=== PATIENT | male | born 1965 | race Caucasian/White ===

== ENCOUNTER 2021-01-06 21:08 | Inpatient (IN) | payer BC ==
[2021-01-06] MEDS ORDERED: ONDANSETRON 4 MG/2 ML VIAL IVP STA (22:20)
[2021-01-06] MEDS ORDERED: HYDROmorphone 0.5 MG/0.5 ML SYRINGE IVP STA (22:20)
[2021-01-06] MEDS ORDERED: SODIUM CHLORIDE 0.9% 2,000 ML IV STA (22:20)
[2021-01-06 22:47] LABS: Basophils # (A) 0.1 k/uL (0-0.2); Basophils % (A) 0 %; Eosinophils # (A) 0.1 k/uL (0-0.7); Eosinophils % (A) 0 %; HCT 46.6 % (39.0-53.0); HGB 15.5 gm/dL (13.0-17.5); Lymphocytes % (A) 5 %; MCHC 33.3 g/dL (31.0-37.0); MCV 90.2 fL (80.0-100.0); Mean Platelet Volume 8.7; Monocytes # (A) 1.4 k/uL (0-1.0); Monocytes % (A) 7 %; Neutrophils # (A) 17.7 k/uL (1.3-7.7); Neutrophils % (A) 86 %; Platelet Count 276 k/uL (150-450); RBC 5.16 m/uL (4.30-5.90); RDW 12.6 % (11.5-15.5); WBC 20.6 k/uL (3.8-10.6)
[2021-01-06 22:59] LABS: Albumin 3.3 g/dL (3.5-5.0); Calcium 8.2 mg/dL (8.4-10.2); Total Bilirubin 0.9 mg/dL (0.2-1.3); Total Protein 6.5 g/dL (6.3-8.2)
[2021-01-06 23:21] LABS: Potassium 3.4 mmol/L (3.5-5.1)
[2021-01-06] MEDS ORDERED: PIPERACILLIN-TAZOBACTAM 3.375 GM in SODIUM CHLORIDE 0.9% 100 ML IVPB STA (23:23)
[2021-01-06] MEDS ORDERED: NALOXONE 0.4 MG/ML 1 ML VIAL IV PRN (23:26)
[2021-01-06] MEDS ORDERED: ONDANSETRON 4 MG/2 ML VIAL IVP PRN (23:26)
[2021-01-06] MEDS ORDERED: HYDROmorphone 0.5 MG/0.5 ML SYRINGE IVP PRN (23:26)
--- NOTE | 2021-01-06 23:26 | ED ---
Abdominal Pain HPI - General Chief Complaint: Abdominal Pain Stated Complaint: Abd pain Time Seen by Provider: 01/06/21 22:03 Source: patient, family, RN notes reviewed Mode of arrival: ambulatory Limitations: no limitations - History of Present Illness Initial Comments: This a 55-year-old male presents emergency Department chief complaint increase abdominal pain, fever. Patient had computed tomography scan today which showed evidence of inflammatory processes of his lap band. Patient had imaging done in [place] changes were sent to Dr. Acosta scheduled see tomorrow for possible surgery, evaluation. Patient states pain worsened presented here. Patient states felt sick to his stomach, having diarrhea and constipation on and off. Patient has no dysuria no hematuria patient's having increasing left-sided abdominal pain. - Related Data Allergies Allergy/AdvReac Type Severity Reaction Status Date / Time No Known Allergies Allergy Verified 01/06/21 21:57 Review of Systems ROS Statement: Those systems with pertinent positive or pertinent negative responses have been documented in the HPI. ROS Other: All systems not noted in ROS Statement are negative. Past Medical History Past Medical History: Atrial Fibrillation, Chest Pain / Angina, Diabetes Mellitus, Hypertension, Myocardial Infarction ([place]) Additional Past Medical History / Comment(s): Loop recorder History of Any Multi-Drug Resistant Organisms: None Reported Past Surgical History: Ablation, Coronary Bypass/CABG, Heart Catheterization, Heart Catheterization With Stent Additional Past Surgical History / Comment(s): Lap band Past Psychological History: No Psychological Hx Reported Smoking Status: Never smoker Past Alcohol Use History: None Reported Past Drug Use History: None Reported General Exam Limitations: no limitations General appearance: alert, in no apparent distress Head exam: Present: atraumatic, normocephalic, normal inspection Eye exam: Present: normal appearance, PERRL, EOMI. Absent: scleral icterus, conjunctival injection, periorbital swelling ENT exam: Present: normal exam, normal oropharynx, mucous membranes moist Neck exam: Present: normal inspection. Absent: tenderness, meningismus, lymphadenopathy Respiratory exam: Present: normal lung sounds bilaterally. Absent: respiratory distress, wheezes, rales, rhonchi, stridor Cardiovascular Exam: Present: regular rate, normal rhythm, normal heart sounds. Absent: systolic murmur, diastolic murmur, rubs, gallop, clicks GI/Abdominal exam: Present: soft, tenderness, normal bowel sounds. Absent: dist ended, guarding, rebound, rigid Back exam: Absent: CVA tenderness (R), CVA tenderness (L) Neurological exam: Present: alert Skin exam: Present: warm, dry, intact, normal color. Absent: rash Course Vital Signs 01/06/21 21:51 Temperature 100.5 F H Pulse Rate 68 Respiratory 18 Rate Blood Pressure 109/64 O2 Sat by Pulse 94 L Oximetry Medical Decision Making - Medical Decision Making Case discussed with Dr. Acosta. Patient was placed on IV antibiotics, nothing by mouth will be evaluated for possible surgery. - Lab Data Result diagrams: 01/06/21 22:25 01/06/21 22:25 Lab Results 01/06/21 01/06/21 01/06/21 Range/Units 22:25 22:25 22:25 WBC 20.6 H (3.8-10.6) k/uL RBC 5.16 (4.30-5.90) m/uL Hgb 15.5 (13.0-17.5) gm/dL Hct 46.6 (39.0-53.0) % MCV 90.2 (80.0-100.0) fL MCH 30.0 (25.0-35.0) pg MCHC 33.3 (31.0-37.0) g/dL RDW 12.6 (11.5-15.5) % Plt Count 276 (150-450) k/uL MPV 8.7 Neutrophils % 86 % Lymphocytes % 5 % Monocytes % 7 % Eosinophils % 0 % Basophils % 0 % Neutrophils # 17.7 H (1.3-7.7) k/uL Lymphocytes # 1.0 (1.0-4.8) k/uL Monocytes # 1.4 H (0-1.0) k/uL Eosinophils # 0.1 (0-0.7) k/uL Basophils # 0.1 (0-0.2) k/uL Sodium 133 L (137-145) mmol/L Potassium 3.4 L (3.5-5.1) mmol/L Chloride 96 L (98-107) mmol/L Carbon Dioxide 23 (22-30) mmol/L Anion Gap 14 mmol/L BUN 32 H (9-20) mg/dL Creatinine 1.21 (0.66-1.25) mg/dL Est GFR (CKD-EPI)AfAm 77 (>60 ml/min/1.73 sqM) Est GFR (CKD-EPI)NonAf 66 (>60 ml/min/1.73 sqM) Glucose 134 H (74-99) mg/dL Plasma Lactic Acid Jewel 1.1 (0.7-2.0) mmol/L Calcium 8.2 L (8.4-10.2) mg/dL Total Bilirubin 0.9 (0.2-1.3) mg/dL AST 40 (17-59) U/L ALT 21 (4-49) U/L Alkaline Phosphatase 80 (38-126) U/L Total Protein 6.5 (6.3-8.2) g/dL Albumin 3.3 L (3.5-5.0) g/dL Amylase 34 (30-110) U/L Lipase 74 (23-300) U/L Disposition Clinical Impression: Abdominal pain, Febrile, Leukocytosis, Abdominal infection, History of laparoscopic adjustable gastric banding Disposition: ADMITTED IP TO THIS [facility] Condition: Fair Referrals: Nonstaff,Physician [Primary Care Provider] - 1-2 days
[2021-01-07] MEDS: SODIUM CHLORIDE 0.9% 1,000 ML IV SCH ×4 (02:21→21:11)
[2021-01-07] MEDS: ACETAMINOPHEN TAB 325 MG TAB PO PRN (07:06)
[2021-01-07 08:18] LABS: Glucose,Whole Blood 134 mg/dL (75-99)
[2021-01-07] MEDS: POTASSIUM CHLORIDE 10 MEQ in WATER FOR INJECTION 1 100ML.BAG IVPB SCH ×2 (08:37→09:55)
[2021-01-07 09:59] LABS: Basophils # (A) 0.1 k/uL (0-0.2); Basophils % (A) 0 %; Eosinophils # (A) 0.2 k/uL (0-0.7); Eosinophils % (A) 1 %; HCT 43.8 % (39.0-53.0); HGB 14.3 gm/dL (13.0-17.5); Lymphocytes # (A) 0.9 k/uL (1.0-4.8); Lymphocytes % (A) 5 %; MCHC 32.7 g/dL (31.0-37.0); MCV 91.8 fL (80.0-100.0); Mean Platelet Volume 8.9; Monocytes # (A) 1.4 k/uL (0-1.0); Monocytes % (A) 7 %; Neutrophils # (A) 16.3 k/uL (1.3-7.7); Neutrophils % (A) 86 %; Platelet Count 287 k/uL (150-450); RBC 4.77 m/uL (4.30-5.90); RDW 12.8 % (11.5-15.5); WBC 19.1 k/uL (3.8-10.6)
[2021-01-07 10:05] LABS: African American GFR (CKD) 82 (>60 ml/min/1.73 sqM); Anion Gap 11 mmol/L; Blood Urea Nitrogen 29 mg/dL (9-20); Calcium 7.8 mg/dL (8.4-10.2); Carbon Dioxide 27 mmol/L (22-30); Chloride 99 mmol/L (98-107); Glucose 126 mg/dL (74-99); Non-African American GFR(CKD) 71 (>60 ml/min/1.73 sqM); Potassium 3.6 mmol/L (3.5-5.1); Sodium 137 mmol/L (137-145)
--- NOTE | 2021-01-07 10:12 | P.GSHP ---
History of Present Illness H&P Date: 01/07/21 CHIEF COMPLAINT: Abdominal pain HISTORY OF PRESENT ILLNESS: This is a 55-year-old male with a known history of lap band that was placed about 15 years ago. He reports that he started having pain over the weekend on the left side of his abdomen. He's also been feverish. He had similar pain in October that did improve after antibiotics. He went to see his PCP this Tuesday and CAT scan was ordered which had shown inflammation changes at the LAP-BAND system. Patient denies any nausea or vomiting. He did have fever as high as 101.6. WBC is 20.6. He is on Eliquis for his atrial fibrillation. Last dose of was was at 7:00 last night. PAST MEDICAL HISTORY: Atrial fibrillation, diabetes mellitus, hypertension, myocardial infarction PAST SURGICAL HISTORY: CABG, heart catheterization with stent, LAP-BAND system MEDICATIONS: See list. ALLERGIES: See list. SOCIAL HISTORY: No illicit drug use. REVIEW OF SYSTEMS: CONSTITUTIONAL: Denies fever or chills. HEENT: Denies blurred vision, vision changes, or eye pain. Denies hemoptysis CARDIOVASCULAR: Denies chest pain or pressure. RESPIRATORY: No shortness of breath. GASTROINTESTINAL: See HPI for pertinent findings HEMATOLOGIC: Denies bleeding disorders. GENITOURINARY: Denies any blood in urine or increased urinary frequency. SKIN: Denies pruitis. Denies rash. PHYSICAL EXAM: VITAL SIGNS: Reviewed GENERAL: Well-developed in no acute distress. HEENT: No sclera icterus. Extraocular movements grossly intact. Moist buccal mucosa. Head is atraumatic, normocephalic. No nasal drainage. ABDOMEN: Soft. Nondistended. Tenderness with palpation of left sided abdomen NEUROLOGIC: Alert and oriented. Cranial nerves II through XII grossly intact. LABORATORY DATA: WBC 20.6 down to 19.1 hemoglobin 14.3 platelets 287 Sodium 133 up to 137 potassium 3.4 up to 3.6 BUN 29 creatinine 1.15 glucose 126 LFTs normal lipase normal COVID-19 not detected IMAGING: ASSESSMENT: 1. Inflammatory changes and infection of LAP-BAND system PLAN: -Patient scheduled for laparoscopic removal of LAP-BAND system today with Dr. talley -Continue IV antibiotics -Continue IV fluids -Continue pain medication as needed -Add insulin sliding scale coverage -Keep Eliquis on hold -Consult medicine service for medical management Physician Business Segment Manager note has been reviewed by physician. Signing provider agrees with the documented findings, assessment, and plan of care. Past Medical History Past Medical History: Atrial Fibrillation, Chest Pain / Angina, Diabetes Mellitus, Hypertension, Myocardial Infarction ([place]) Additional Past Medical History / Comment(s): Loop recorder History of Any Multi-Drug Resistant Organisms: None Reported Past Surgical History: Ablation, Coronary Bypass/CABG, Heart Catheterization, Heart Catheterization With Stent Additional Past Surgical History / Comment(s): Lap band Past Psychological History: No Psychological Hx Reported Smoking Status: Never smoker Past Alcohol Use History: None Reported Past Drug Use History: None Reported Medications and Allergies Home Medications Medication Instructions Recorded Confirmed Type Apixaban [Eliquis] 5 mg PO BID 01/06/21 01/07/21 History Aspirin EC [Ecotrin Low Dose] 81 mg PO DAILY 01/06/21 01/07/21 History Chlorthalidone [Hygroton] 25 mg PO DAILY 01/06/21 01/06/21 History Diltiazem HCl [Diltiazem HCl 24Hr 240 mg PO DAILY 01/06/21 01/07/21 History ER] Ezetimibe [Zetia] 10 mg PO DAILY 01/06/21 01/07/21 History Insulin Glargine,Hum.rec.anlog 30 - 40 unit SQ QAM 01/06/21 01/07/21 History [Lantus Solostar Pen] Insulin Glargine,Hum.rec.anlog 80 unit SQ HS 01/06/21 01/07/21 History [Lantus Solostar Pen] Krill Oil 750mg 1 tab PO BID 01/06/21 01/07/21 History Magnesium Chloride [Mag64] 64 mg PO DAILY 01/06/21 01/07/21 History Metoprolol Tartrate [Lopressor] 50 mg PO BID 01/06/21 01/07/21 History Multivitamins, Thera [Multivitamin 1 tab PO DAILY 01/06/21 01/07/21 History (formulary)] Potassium Chloride [K-Tab ER] 20 meq PO DAILY 01/06/21 01/07/21 History Sotalol HCl [Sotalol] 240 mg PO BID-W/MEALS 01/06/21 01/07/21 History hydrALAZINE HCL 50 mg PO BID 01/06/21 01/07/21 History lisinopriL 20 mg PO BID 01/06/21 01/07/21 History Atorvastatin [Lipitor] 20 mg PO DAILY 01/07/21 01/07/21 History Cholecalciferol [Vitamin D3 (25 25 mcg PO DAILY 01/07/21 01/07/21 History Mcg = 1000 Iu)] buPROPion XL [Wellbutrin XL] 150 mg PO DAILY 01/07/21 01/07/21 History metFORMIN HCL 500 mg PO BID-W/MEALS 01/07/21 01/07/21 History Allergies Allergy/AdvReac Type Severity Reaction Status Date / Time No Known Allergies Allergy Verified 01/06/21 23:59 Surgical - Exam Vital Signs Temp Pulse Resp BP Pulse Ox 100.5 F H 68 18 109/64 94 L 01/06/21 21:51 01/06/21 21:51 01/06/21 21:51 01/06/21 21:51 01/06/21 21:51 Results - Labs 01/07/21 09:04 01/07/21 09:04 Abnormal Lab Results - Last 24 Hours (Table) 01/06/21 01/06/21 01/07/21 Range/Units 22:25 22:25 08:15 WBC 20.6 H (3.8-10.6) k/uL Neutrophils # 17.7 H (1.3-7.7) k/uL Lymphocytes # (1.0-4.8) k/uL Monocytes # 1.4 H (0-1.0) k/uL Sodium 133 L (137-145) mmol/L Potassium 3.4 L (3.5-5.1) mmol/L Chloride 96 L (98-107) mmol/L BUN 32 H (9-20) mg/dL Glucose 134 H (74-99) mg/dL POC Glucose (mg/dL) 134 H (75-99) mg/dL Calcium 8.2 L (8.4-10.2) mg/dL Albumin 3.3 L (3.5-5.0) g/dL 01/07/21 01/07/21 Range/Units 09:04 09:04 WBC 19.1 H (3.8-10.6) k/uL Neutrophils # 16.3 H (1.3-7.7) k/uL Lymphocytes # 0.9 L (1.0-4.8) k/uL Monocytes # 1.4 H (0-1.0) k/uL Sodium (137-145) mmol/L Potassium (3.5-5.1) mmol/L Chloride (98-107) mmol/L BUN 29 H (9-20) mg/dL Glucose 126 H (74-99) mg/dL POC Glucose (mg/dL) (75-99) mg/dL Calcium 7.8 L (8.4-10.2) mg/dL Albumin (3.5-5.0) g/dL Diabetes panel 01/06/21 01/07/21 Range/Units 22:25 09:04 Sodium 133 L 137 (137-145) mmol/L Potassium 3.4 L 3.6 (3.5-5.1) mmol/L Chloride 96 L 99 (98-107) mmol/L Carbon Dioxide 23 27 (22-30) mmol/L BUN 32 H 29 H (9-20) mg/dL Creatinine 1.21 1.15 (0.66-1.25) mg/dL Glucose 134 H 126 H (74-99) mg/dL Calcium 8.2 L 7.8 L (8.4-10.2) mg/dL AST 40 (17-59) U/L ALT 21 (4-49) U/L Alkaline Phosphatase 80 (38-126) U/L Total Protein 6.5 (6.3-8.2) g/dL Albumin 3.3 L (3.5-5.0) g/dL Calcium panel 01/06/21 01/07/21 Range/Units 22:25 09:04 Calcium 8.2 L 7.8 L (8.4-10.2) mg/dL Albumin 3.3 L (3.5-5.0) g/dL Pituitary panel 01/06/21 01/07/21 Range/Units 22:25 09:04 Sodium 133 L 137 (137-145) mmol/L Potassium 3.4 L 3.6 (3.5-5.1) mmol/L Chloride 96 L 99 (98-107) mmol/L Carbon Dioxide 23 27 (22-30) mmol/L BUN 32 H 29 H (9-20) mg/dL Creatinine 1.21 1.15 (0.66-1.25) mg/dL Glucose 134 H 126 H (74-99) mg/dL Calcium 8.2 L 7.8 L (8.4-10.2) mg/dL Adrenal panel 01/06/21 01/07/21 Range/Units 22:25 09:04 Sodium 133 L 137 (137-145) mmol/L Potassium 3.4 L 3.6 (3.5-5.1) mmol/L Chloride 96 L 99 (98-107) mmol/L Carbon Dioxide 23 27 (22-30) mmol/L BUN 32 H 29 H (9-20) mg/dL Creatinine 1.21 1.15 (0.66-1.25) mg/dL Glucose 134 H 126 H (74-99) mg/dL Calcium 8.2 L 7.8 L (8.4-10.2) mg/dL Total Bilirubin 0.9 (0.2-1.3) mg/dL AST 40 (17-59) U/L ALT 21 (4-49) U/L Alkaline Phosphatase 80 (38-126) U/L Total Protein 6.5 (6.3-8.2) g/dL Albumin 3.3 L (3.5-5.0) g/dL
[2021-01-07 10:15] LABS: Appearance,Urine Cloudy (Clear); Bilirubin,Urine Negative (Negative); Blood,Urine Negative (Negative); Color,Urine Yellow; Glucose,Urine (UA) Negative (Negative); Ketones,Urine Trace (Negative); Leukocyte Esterase,Urine Negative (Negative); Mucus,Urine Rare /hpf; Nitrite,Urine Negative (Negative); PH, Urine 5.5 (5.0-8.0); Protein,Urine 1+ (Negative); RBC,Urine 3 /hpf (0-5); Specific Gravity,Urine 1.036 (1.001-1.035); Squamous Epithelial Cell,Urine 1 /hpf (0-4); Urobilinogen,Urine <2.0 mg/dL (<2.0); WBC,Urine 4 /hpf (0-5)
[2021-01-07] MEDS ORDERED: IV FLUID CONTINUATION 1,000 ML IV ONE (10:46)
[2021-01-07 10:53] LABS: Glucose,Whole Blood 110 mg/dL (75-99)
[2021-01-07] MEDS ORDERED: DEXAMETHASONE SOD PHOSPHATE 4 MG/ML 1 ML VIAL IVP ONE (11:08)
[2021-01-07] MEDS ORDERED: ONDANSETRON 4 MG/2 ML VIAL IVP ONE (11:08)
[2021-01-07] MEDS ORDERED: fentaNYL (PF) 50 MCG/ML 2 ML AMP ONE (11:30)
[2021-01-07] MEDS ORDERED: PROPOFOL 10 MG/ML 20 ML VIAL IV ONE (11:30)
[2021-01-07] MEDS ORDERED: MIDAZOLAM 2 MG/2 ML VIAL ONE (11:30)
[2021-01-07] MEDS ORDERED: LIDOCAINE 1% INJ 10MG/ML (20 ML MDV) ONE (11:30)
[2021-01-07] MEDS ORDERED: SUCCINYLCHOLINE CHLORIDE VIAL 200 MG/10 ML VIAL IV ONE (11:30)
[2021-01-07] MEDS ORDERED: BUPIVACAINE (PF) 0.25% 30 ML VIAL SQ ONE (11:59)
--- NOTE | 2021-01-07 12:04 | P.OP ---
Date of Procedure: 01/07/21 Preoperative Diagnosis: LAP-BAND port infection Postoperative Diagnosis: LAP-BAND port infection Implants: Removal of LAP-BAND port Anesthesia: LARRY Surgeon: Mike Acosta Pathology: other (Culture) Condition: stable Disposition: PACU Description of Procedure: The patient's placed on the operative table in the supine position. He received general endotracheal anesthesia. His abdomen was prepped and draped usual fashion. The skin was incised over the LAP-BAND port. Using blunt and sharp dissection with cautery the LAP-BAND port was dissected free. The PEG tube was then cut. The LAP-BAND port pocket was cultured. There was very minimal inflammatory changes seen. There is no evidence of any pus. The wound was then packed with wet-to-dry Kerlix. Patient top she will well and was sent to recovery room stable condition.
[2021-01-07 13:29] LABS: Glucose,Whole Blood 138 mg/dL (75-99)
[2021-01-07] MEDS: INSULIN ASPART (NovoLOG) 100 UNIT/ML VIAL SQ SCH ×3 (13:36→21:11)
[2021-01-07] MEDS: PIPERACILLIN-TAZOBACTAM 3.375 GM in SODIUM CHLORIDE 0.9% 100 ML IVPB SCH ×2 (13:37→19:21)
[2021-01-07 17:11] LABS: Glucose,Whole Blood 186 mg/dL (75-99)
[2021-01-07] MEDS: SOTALOL 120 MG TAB PO SCH (18:09)
[2021-01-07 21:04] LABS: Glucose,Whole Blood 287 mg/dL (75-99)
[2021-01-07] MEDS: METOPROLOL TARTRATE 50 MG TAB PO SCH (21:10)
[2021-01-07] MEDS: hydrALAZINE HCL 50 MG TAB PO SCH (21:10)
[2021-01-07] MEDS: INSULIN DETEMIR (LEVEMIR) 100 UNIT/ML SYR SQ SCH (21:10)
[2021-01-08] MEDS: PIPERACILLIN-TAZOBACTAM 3.375 GM in SODIUM CHLORIDE 0.9% 100 ML IVPB SCH ×3 (02:10→17:37)
[2021-01-08] MEDS: SODIUM CHLORIDE 0.9% 1,000 ML IV SCH (06:21)
[2021-01-08 07:34] LABS: Glucose,Whole Blood 200 mg/dL (75-99)
[2021-01-08] MEDS: METOPROLOL TARTRATE 50 MG TAB PO SCH ×2 (08:02→20:47)
[2021-01-08] MEDS: SOTALOL 120 MG TAB PO SCH ×2 (08:02→17:38)
[2021-01-08] MEDS: MULTIVITAMINS, THERA 1 EACH TAB PO SCH (08:02)
[2021-01-08] MEDS: buPROPion XL 150 MG TAB.ER.24H PO SCH (08:02)
[2021-01-08] MEDS: CHOLECALCIFEROL 25 MCG (1000 IU) TABLET PO SCH (08:02)
[2021-01-08] MEDS: ASPIRIN 81 MG PO SCH (08:02)
[2021-01-08] MEDS: EZETIMIBE 10 MG TAB PO SCH (08:02)
[2021-01-08] MEDS: hydrALAZINE HCL 50 MG TAB PO SCH ×2 (08:03→20:48)
[2021-01-08] MEDS: INSULIN ASPART (NovoLOG) 100 UNIT/ML VIAL SQ SCH ×4 (08:03→20:48)
[2021-01-08] MEDS: lisinopriL 20 MG TAB PO SCH (08:03)
[2021-01-08] MEDS: MAGNESIUM OXIDE 400 MG TAB PO SCH (08:03)
[2021-01-08] MEDS: ATORVASTATIN 20 MG TAB PO SCH (08:03)
[2021-01-08] MEDS ORDERED: DILTIAZEM CD 240 MG CAP.ER.24H PO SCH (09:00)
--- NOTE | 2021-01-08 10:04 | P.CONS ---
History of Present Illness - Reason for Consult Consult date: 01/07/21 Sepsis - History of Present Illness Patient presents with 55-year-old male came in with complaints of left-sided abdominal pain along with fever and leukocytosis. Patient denied any cough or denied any dysuria. Patient had a computed tomography scan that was done as an outpatient and primary care physician which did show inflammation of the LAP- BAND system because of which patient underwent surgical intervention for lab and port infection and LAP-BAND port was removed. I was unable to evaluate the patient preoperatively as patient was in ER or is able to see the patient after surgery patient is clinically doing well pain is better controlled. REVIEW OF SYSTEMS: CONSTITUTIONAL: As mentioned in HPI HEENT: No recent visual problems or hearing problems. Denied any sore throat. CARDIOVASCULAR: No chest pain, orthopnea, PND, no palpitations, no syncope. PULMONARY: No shortness of breath, no cough, no hemoptysis. GASTROINTESTINAL: No diarrhea, no nausea, no vomiting. NEUROLOGICAL: No headaches, no weakness, no numbness. HEMATOLOGICAL: Denies any bleeding or petechiae. GENITOURINARY: Denies any burning micturition, frequency, or urgency. MUSCULOSKELETAL/RHEUMATOLOGICAL: Denies any joint pain, swelling, or any muscle pain. ENDOCRINE: Denies any polyuria or polydipsia. The rest of the 14-point review of systems is negative. PHYSICAL EXAMINATION: GENERAL: The patient is alert and oriented x3, not in any acute distress. Well developed, well nourished. Obese HEENT: Pupils are round and equally reacting to light. EOMI. No scleral icterus. No conjunctival pallor. Normocephalic, atraumatic. No pharyngeal erythema. No thyromegaly. CARDIOVASCULAR: S1 and S2 present. No murmurs, rubs, or gallops. PULMONARY: Chest is clear to auscultation, no wheezing or crackles. ABDOMEN: Soft, nontender. No palpable organomegaly. Patient's surgical site area in the midabdomen is clean MUSCULOSKELETAL: No joint swelling or deformity. EXTREMITIES: No cyanosis, clubbing, or pedal edema. NEUROLOGICAL: Gross neurological examination did not reveal any focal deficits. SKIN: No rashes. Assessment and plan -Sepsis secondary to LAP-BAND port infection: Patient is on appropriate antibiotics LAP-BAND port was removed. Patient is presently on Zosyn. Cultures from the port will be obtained -Essential hypertension Uncontrolled elevated blood pressure hydralazine dose will be increased to 75 mg 3 times a day -Type 2 diabetes mellitus: Patient will be resumed on home regimen with the lesser dose of long-acting insulin and hold off on by mouth oral hyperglycemic agents -Hypertension -Coronary artery disease with a CABG in the past and stents in the past -Atrial fibrillation status post ablation patient is on anticoagulation which is being held at this time if it's okay with general surgery patient will be started back on these patient will be continued on sotalol and metoprolol DVT prophylaxis: Patient will be started on Eliquis whenever general surgery is agreeable Past Medical History Past Medical History: Atrial Fibrillation, Chest Pain / Angina, Diabetes Mellitus, Hypertension, Myocardial Infarction ([place]) Additional Past Medical History / Comment(s): Loop recorder Last Myocardial Infarction Date:: 2003 History of Any Multi-Drug Resistant Organisms: None Reported Past Surgical History: Ablation, Coronary Bypass/CABG, Heart Catheterization, Heart Catheterization With Stent Additional Past Surgical History / Comment(s): Lap band Past Anesthesia/Blood Transfusion Reactions: No Reported Reaction Date of Last Stent Placement:: 1989 Past Psychological History: No Psychological Hx Reported Smoking Status: Never smoker Past Alcohol Use History: None Reported Past Drug Use History: None Reported Medications and Allergies Home Medications Medication Instructions Recorded Confirmed Type Apixaban [Eliquis] 5 mg PO BID 01/06/21 01/07/21 History Aspirin EC [Ecotrin Low Dose] 81 mg PO DAILY 01/06/21 01/07/21 History Chlorthalidone [Hygroton] 25 mg PO DAILY 01/06/21 01/06/21 History Diltiazem HCl [Diltiazem HCl 24Hr 240 mg PO DAILY 01/06/21 01/07/21 History ER] Ezetimibe [Zetia] 10 mg PO DAILY 01/06/21 01/07/21 History Insulin Glargine,Hum.rec.anlog 30 - 40 unit SQ QAM 01/06/21 01/07/21 History [Lantus Solostar Pen] Insulin Glargine,Hum.rec.anlog 80 unit SQ HS 01/06/21 01/07/21 History [Lantus Solostar Pen] Krill Oil 750mg 1 tab PO BID 01/06/21 01/07/21 History Magnesium Chloride [Mag64] 64 mg PO DAILY 01/06/21 01/07/21 History Metoprolol Tartrate [Lopressor] 50 mg PO BID 01/06/21 01/07/21 History Multivitamins, Thera [Multivitamin 1 tab PO DAILY 01/06/21 01/07/21 History (formulary)] Potassium Chloride [K-Tab ER] 20 meq PO DAILY 01/06/21 01/07/21 History Sotalol HCl [Sotalol] 240 mg PO BID-W/MEALS 01/06/21 01/07/21 History hydrALAZINE HCL 50 mg PO BID 01/06/21 01/07/21 History lisinopriL 20 mg PO BID 01/06/21 01/07/21 History Atorvastatin [Lipitor] 20 mg PO DAILY 01/07/21 01/07/21 History Cholecalciferol [Vitamin D3 (25 25 mcg PO DAILY 01/07/21 01/07/21 History Mcg = 1000 Iu)] buPROPion XL [Wellbutrin XL] 150 mg PO DAILY 01/07/21 01/07/21 History metFORMIN HCL 500 mg PO BID-W/MEALS 01/07/21 01/07/21 History Allergies Allergy/AdvReac Type Severity Reaction Status Date / Time No Known Allergies Allergy Verified 01/06/21 23:59 Physical Exam Vitals: Vital Signs Temp Pulse Pulse Resp BP Pulse Ox 01/08/21 08:00 97.5 F L 50 L 17 167/68 98 01/08/21 02:00 97.5 F L 49 L 18 145/72 94 L 01/07/21 20:00 98.2 F 63 20 138/78 97 01/07/21 16:13 61 14 161/77 95 01/07/21 15:13 60 14 145/67 94 L 01/07/21 14:13 61 14 134/81 94 L 01/07/21 13:43 60 14 137/75 95 01/07/21 13:13 98.9 F 64 14 142/73 95 01/07/21 12:58 98.9 F 62 14 154/81 97 01/07/21 12:43 63 16 134/70 94 L 01/07/21 12:28 60 16 131/72 98 01/07/21 12:16 97.2 F L 01/07/21 12:13 64 18 140/74 98 01/07/21 12:12 60 16 124/72 92 L 01/07/21 10:47 96.8 F L 64 16 135/63 95 Intake and Output 01/07/21 01/08/21 01/08/21 22:59 06:59 14:59 Intake Total 120 Balance 120 Intake: Oral 120 Other: Voiding Method Toilet Toilet # Voids 1 3 Weight 139.706 kg Results CBC & Chem 7: 01/07/21 09:04 01/07/21 09:04 Labs: Abnormal Lab Results - Last 24 Hours (Table) 01/06/21 01/07/21 01/07/21 Range/Units 10: 09:04 10:51 BUN 29 H (9-20) mg/dL Glucose 126 H (74-99) mg/dL POC Glucose (mg/dL) 110 H (75-99) mg/dL Calcium 7.8 L (8.4-10.2) mg/dL Ur Specific [place] 1.036 H (1.001-1.035) Urine Protein 1+ H (Negative) Urine Ketones Trace H (Negative) Urine Mucus Rare H (None) /hpf 01/07/21 01/07/21 01/07/21 Range/Units 13:18 16:57 21:03 BUN (9-20) mg/dL Glucose (74-99) mg/dL POC Glucose (mg/dL) 138 H 186 H 287 H (75-99) mg/dL Calcium (8.4-10.2) mg/dL Ur Specific [place] (1.001-1.035) Urine Protein (Negative) Urine Ketones (Negative) Urine Mucus (None) /hpf 01/08/21 Range/Units 07:31 BUN (9-20) mg/dL Glucose (74-99) mg/dL POC Glucose (mg/dL) 200 H (75-99) mg/dL Calcium (8.4-10.2) mg/dL Ur Specific [place] (1.001-1.035) Urine Protein (Negative) Urine Ketones (Negative) Urine Mucus (None) /hpf Microbiology - Last 24 Hours (Table) 01/07/21 12:00 Gram Stain - Preliminary Other - Other Wound Culture - Preliminary 01/07/21 01:10 Blood Culture - Preliminary Blood No Growth after 24 hours 01/07/21 00:50 Blood Culture - Preliminary Blood No Growth after 24 hours 01/07/21 12:00 Anaerobic Culture - Preliminary Other - Other 01/07/21 12:00 Fungal Culture - Preliminary Other - Other
[2021-01-08 10:27] LABS: ALT 22 U/L (4-49); AST 31 U/L (17-59); African American GFR (CKD) >90 (>60 ml/min/1.73 sqM); Albumin 2.9 g/dL (3.5-5.0); Albumin/Globulin Ratio 0.9; Alkaline Phosphatase 78 U/L (38-126); Anion Gap 11 mmol/L; Blood Urea Nitrogen 27 mg/dL (9-20); Carbon Dioxide 28 mmol/L (22-30); Chloride 101 mmol/L (98-107); Globulin 3.3 g/dL; Glucose 188 mg/dL (74-99); Non-African American GFR(CKD) >90 (>60 ml/min/1.73 sqM); Potassium 3.8 mmol/L (3.5-5.1); Sodium 140 mmol/L (137-145); Total Bilirubin 0.4 mg/dL (0.2-1.3); Total Protein 6.2 g/dL (6.3-8.2)
[2021-01-08 10:32] LABS: Basophils % (A) 0 %; Eosinophils % (A) 0 %; HGB 14.3 gm/dL (13.0-17.5); Lymphocytes # (A) 0.8 k/uL (1.0-4.8); Lymphocytes % (A) 5 %; MCH 30.1 pg (25.0-35.0); MCHC 33.2 g/dL (31.0-37.0); MCV 90.7 fL (80.0-100.0); Mean Platelet Volume 9.2; Monocytes # (A) 0.8 k/uL (0-1.0); Monocytes % (A) 5 %; Neutrophils # (A) 13.9 k/uL (1.3-7.7); Neutrophils % (A) 89 %; Platelet Count 312 k/uL (150-450); RBC 4.74 m/uL (4.30-5.90); RDW 13.3 % (11.5-15.5); WBC 15.6 k/uL (3.8-10.6)
[2021-01-08 11:25] LABS: Glucose,Whole Blood 227 mg/dL (75-99)
--- NOTE | 2021-01-08 14:57 | P.PN ---
Subjective Progress Note Date: 01/08/21 Patient presents with 55-year-old male came in with complaints of left-sided abdominal pain along with fever and leukocytosis. Patient denied any cough or denied any dysuria. Patient had a computed tomography scan that was done as an outpatient and primary care physician which did show inflammation of the LAP- BAND system because of which patient underwent surgical intervention for lab and port infection and LAP-BAND port was removed. I was unable to evaluate the patient preoperatively as patient was in ER or is able to see the patient after surgery patient is clinically doing well pain is better controlled. 01/09/2020 Patient is postoperative day #1 laparoscopic removal of this LAP-BAND port with Dr. Acosta. He reports minimal abdominal discomfort, pain management with Tylenol. Patient had a flat been in for 15 years, he states that previously he was admitted at [facility] in [place] for a infection that required a PICC line and IV antibiotics. At that time they were evaluating whether to remove the LAP-BAND. He states that he felt the workup was inconclusive about what caused the infec tion. Patient is passing gas, positive bowel movements, urinating without difficulty. He denies nausea vomiting or diarrhea. Labs today show white count of 15.6. ROS Constitutional: Denied any fatigue denied any fever. Cardio vascular: denied any chest pain, palpitations Gastrointestinal denied any nausea vomiting, diarrhea, reports mild abdominal pain around laparoscopic incisions Pulmonary: Denied any shortness of breath cough Neurologic denied any new focal deficits All inpatient medications were reviewed and appropriate changes in these medications as dictated in the interval history and assessment and plan. PHYSICAL EXAMINATION: GENERAL: The patient is alert and oriented x3, not in any acute distress. Well developed, well nourished. Obese HEENT: Pupils are round and equally reacting to light. EOMI. No scleral icterus. No conjunctival pallor. Normocephalic, atraumatic. No pharyngeal erythema. No thyromegaly. CARDIOVASCULAR: S1 and S2 present. No murmurs, rubs, or gallops. PULMONARY: Chest is clear to auscultation, no wheezing or crackles. ABDOMEN: Soft, nontender. No palpable organomegaly. Patient's surgical site area in the midabdomen is clean MUSCULOSKELETAL: No joint swelling or deformity. EXTREMITIES: No cyanosis, clubbing, or pedal edema. NEUROLOGICAL: Gross neurological examination did not reveal any focal deficits. SKIN: No rashes. Assessment and plan -Sepsis secondary to LAP-BAND port infection: Patient is on appropriate antibiotics LAP-BAND port was removed. Patient is presently on Zosyn. Cultures from the port will be obtained -Essential hypertension Uncontrolled elevated blood pressure, -Type 2 diabetes mellitus: Patient will be resumed on home regimen with the lesser dose of long-acting insulin and hold off on by mouth oral hyperglycemic agents -Hypertension, on Lopressor and lisinopril, chlorthalidone, sotalol. Hydralazine was stopped and Cardizem was decreased. -Coronary artery disease with a CABG in the past and stents in the past -Atrial fibrillation status post ablation, resumed on eliquis DVT prophylaxis: Resumed on eliquis postoperatively Objective - Vital Signs Vital signs: Vital Signs Temp 98.1 F 01/08/21 14:00 Pulse 55 L 01/08/21 14:00 Resp 16 01/08/21 14:00 BP 138/76 01/08/21 14:00 Pulse Ox 94 L 01/08/21 14:00 Intake & Output 01/07/21 01/08/21 01/08/21 18:59 06:59 18:59 Intake Total 920 Output Total 5 Balance 915 Weight 139.706 kg Intake: IV 800 Oral 120 Output: Estimated Blood Loss 5 Other: Voiding Method Toilet Toilet # Voids 1 3 # Bowel Movements 0 - Labs CBC & Chem 7: 01/08/21 08:50 01/08/21 08:50 Labs: Abnormal Lab Results - Last 24 Hours (Table) 01/07/21 01/07/21 01/08/21 Range/Units 16:57 21:03 07:31 WBC (3.8-10.6) k/uL Neutrophils # (1.3-7.7) k/uL Lymphocytes # (1.0-4.8) k/uL BUN (9-20) mg/dL Glucose (74-99) mg/dL POC Glucose (mg/dL) 186 H 287 H 200 H (75-99) mg/dL Calcium (8.4-10.2) mg/dL Total Protein (6.3-8.2) g/dL Albumin (3.5-5.0) g/dL 10/07/21 10/07/21 10/07/21 Range/Units 08:50 08:50 11:23 WBC 15.6 H (3.8-10.6) k/uL Neutrophils # 13.9 H (1.3-7.7) k/uL Lymphocytes # 0.8 L (1.0-4.8) k/uL BUN 27 H (9-20) mg/dL Glucose 188 H (74-99) mg/dL POC Glucose (mg/dL) 227 H (75-99) mg/dL Calcium 8.0 L (8.4-10.2) mg/dL Total Protein 6.2 L (6.3-8.2) g/dL Albumin 2.9 L (3.5-5.0) g/dL Microbiology - Last 24 Hours (Table) 01/07/21 12:00 Gram Stain - Preliminary Other - Other Wound Culture - Preliminary 01/07/21 01:10 Blood Culture - Preliminary Blood No Growth after 24 hours 01/07/21 00:50 Blood Culture - Preliminary Blood No Growth after 24 hours 01/07/21 12:00 Anaerobic Culture - Preliminary Other - Other 01/07/21 12:00 Fungal Culture - Preliminary Other - Other Assessment and Plan Time with Patient: Greater than 30
--- NOTE | 2021-01-08 15:21 | P.PN ---
Subjective Progress Note Date: 01/08/21 CHIEF COMPLAINT: Lap band port infection HISTORY OF PRESENT ILLNESS: Patient is status post lap band port removal. He reports his pain is controlled. He is tolerating diet. He denies any nausea or vomiting. He is having flatus and did have a small bowel movement. He is afebrile. WBC is trending down from 19.1-15.6 PHYSICAL EXAM: VITAL SIGNS: Reviewed. GENERAL: Well-developed in no acute distress. HEENT: No sclera icterus. Extraocular movements grossly intact. Moist buccal mucosa. Head is atraumatic, normocephalic. ABDOMEN: Soft. Nondistended. Incisional dressing clean dry and intact NEUROLOGIC: Alert and oriented. Cranial nerves II through XII grossly intact. ASSESSMENT: 1. Infected lap band port status post lap band port removal PLAN: -Add [place] for pain control -Continue regular diet -Continue IV antibiotics -Follow up on culture results -Possible discharge tomorrow Physician Chemist [employer] note has been reviewed by physician. Signing provider agrees with the documented findings, assessment, and plan of care. Objective - Vital Signs Vital signs: Vital Signs Temp 98.1 F 01/08/21 14:00 Pulse 55 L 01/08/21 14:00 Resp 16 01/08/21 14:00 BP 138/76 01/08/21 14:00 Pulse Ox 94 L 01/08/21 14:00 Intake & Output 01/07/21 01/08/21 01/08/21 18:59 06:59 18:59 Intake Total 920 Output Total 5 Balance 915 Weight 139.706 kg Intake: IV 800 Oral 120 Output: Estimated Blood Loss 5 Other: Voiding Method Toilet Toilet # Voids 1 3 # Bowel Movements 0 - Labs CBC & Chem 7: 01/08/21 08:50 01/08/21 08:50 Labs: Abnormal Lab Results - Last 24 Hours (Table) 01/07/21 01/07/21 01/08/21 Range/Units 16:57 21:03 07:31 WBC (3.8-10.6) k/uL Neutrophils # (1.3-7.7) k/uL Lymphocytes # (1.0-4.8) k/uL BUN (9-20) mg/dL Glucose (74-99) mg/dL POC Glucose (mg/dL) 186 H 287 H 200 H (75-99) mg/dL Calcium (8.4-10.2) mg/dL Total Protein (6.3-8.2) g/dL Albumin (3.5-5.0) g/dL 01/08/21 01/08/21 01/08/21 Range/Units 08:50 08:50 11:23 WBC 15.6 H (3.8-10.6) k/uL Neutrophils # 13.9 H (1.3-7.7) k/uL Lymphocytes # 0.8 L (1.0-4.8) k/uL BUN 27 H (9-20) mg/dL Glucose 188 H (74-99) mg/dL POC Glucose (mg/dL) 227 H (75-99) mg/dL Calcium 8.0 L (8.4-10.2) mg/dL Total Protein 6.2 L (6.3-8.2) g/dL Albumin 2.9 L (3.5-5.0) g/dL Microbiology - Last 24 Hours (Table) 01/07/21 12:00 Gram Stain - Preliminary Other - Other Wound Culture - Preliminary 01/07/21 01:10 Blood Culture - Preliminary Blood No Growth after 24 hours 01/07/21 00:50 Blood Culture - Preliminary Blood No Growth after 24 hours 01/07/21 12:00 Anaerobic Culture - Preliminary Other - Other 01/07/21 12:00 Fungal Culture - Preliminary Other - Other
[2021-01-08] MEDS ORDERED: hydrALAZINE HCL 25 MG TAB PO SCH (16:00)
[2021-01-08 17:27] LABS: Glucose,Whole Blood 191 mg/dL (75-99)
[2021-01-08 20:39] LABS: Glucose,Whole Blood 182 mg/dL (75-99)
[2021-01-08] MEDS: APIXABAN 5 MG TAB PO SCH (20:47)
[2021-01-08] MEDS: INSULIN DETEMIR (LEVEMIR) 100 UNIT/ML SYR SQ SCH (20:53)
[2021-01-09] MEDS: PIPERACILLIN-TAZOBACTAM 3.375 GM in SODIUM CHLORIDE 0.9% 100 ML IVPB SCH ×3 (01:56→17:34)
[2021-01-09 05:13] LABS: African American GFR (CKD) 89 (>60 ml/min/1.73 sqM); Anion Gap 9 mmol/L; Blood Urea Nitrogen 29 mg/dL (9-20); Carbon Dioxide 28 mmol/L (22-30); Chloride 104 mmol/L (98-107); Glucose 66 mg/dL (74-99); Non-African American GFR(CKD) 77 (>60 ml/min/1.73 sqM); Potassium 3.8 mmol/L (3.5-5.1); Sodium 141 mmol/L (137-145)
[2021-01-09 05:14] LABS: Calcium 7.9 mg/dL (8.4-10.2)
[2021-01-09 07:20] LABS: Glucose,Whole Blood 59 mg/dL (75-99)
[2021-01-09] MEDS: SOTALOL 120 MG TAB PO SCH ×2 (07:25→17:44)
[2021-01-09] MEDS: INSULIN ASPART (NovoLOG) 100 UNIT/ML VIAL SQ SCH ×4 (08:03→20:13)
[2021-01-09 08:12] LABS: Glucose,Whole Blood 56 mg/dL (75-99)
[2021-01-09] MEDS: buPROPion XL 150 MG TAB.ER.24H PO SCH (08:20)
[2021-01-09] MEDS: APIXABAN 5 MG TAB PO SCH ×2 (08:20→20:13)
[2021-01-09] MEDS: hydrALAZINE HCL 50 MG TAB PO SCH ×2 (08:20→20:13)
[2021-01-09] MEDS: DILTIAZEM CD 120 MG CAP.ER.24H PO SCH (08:20)
[2021-01-09] MEDS: MULTIVITAMINS, THERA 1 EACH TAB PO SCH (08:20)
[2021-01-09] MEDS: EZETIMIBE 10 MG TAB PO SCH (08:20)
[2021-01-09] MEDS: lisinopriL 20 MG TAB PO SCH (08:20)
[2021-01-09] MEDS: ASPIRIN 81 MG PO SCH (08:20)
[2021-01-09] MEDS: ATORVASTATIN 20 MG TAB PO SCH (08:20)
[2021-01-09] MEDS: CHLORTHALIDONE 25 MG TAB PO SCH (08:20)
[2021-01-09] MEDS: MAGNESIUM OXIDE 400 MG TAB PO SCH (08:20)
[2021-01-09 08:29] LABS: Glucose,Whole Blood 59 mg/dL (75-99)
[2021-01-09] MEDS: CHOLECALCIFEROL 25 MCG (1000 IU) TABLET PO SCH (08:36)
[2021-01-09] MEDS: INSULIN DETEMIR (LEVEMIR) 100 UNIT/ML SYR SQ SCH ×2 (09:01→22:05)
[2021-01-09] MEDS: METOPROLOL TARTRATE 50 MG TAB PO SCH ×2 (09:02→20:13)
[2021-01-09 09:08] LABS: Glucose,Whole Blood 113 mg/dL (75-99)
[2021-01-09 09:16] LABS: HCT 41.4 % (39.6-50.0); MCH 28.8 pg (27.0-32.0); MCHC 31.4 g/dL (32.0-37.0); MCV 91.6 fL (80.0-97.0); Mean Platelet Volume 11.4 fL (9.5-12.2); Platelet Count 370 X 10*3/uL (140-440); RBC 4.52 X 10*6/uL (4.40-5.60); RDW 13.6 % (11.5-14.5); WBC 15.95 X 10*3/uL (4.50-10.00)
[2021-01-09 10:09] LABS: Basophils # (A) 0.07 X 10*3/uL (0.00-0.10); Basophils % (A) 0.4 %; Eosinophils # (A) 0.24 X 10*3/uL (0.04-0.35); Eosinophils % (A) 1.5 %; Lymphocytes # (A) 1.46 X 10*3/uL (0.90-5.00); Lymphocytes % (A) 9.2 %; Monocytes # (A) 1.59 X 10*3/uL (0.20-1.00); Neutrophils # (A) 12.47 X 10*3/uL (1.80-7.70); Neutrophils % (A) 78.1 %
--- NOTE | 2021-01-09 11:15 | P.PN ---
Progress Note - Text Progress Note Date: 01/09/21 Patient states he feels better. He is some mild left lower quadrant pain. His white count is 16,000. On exam vitals are stable. Abdomen soft. There is some mild tenderness left lower quadrant. There is no rebound or guarding. Presumed LAP-BAND port infection. Patient will continue receive IV antibiotics. And local wound care
[2021-01-09 12:03] LABS: Glucose,Whole Blood 102 mg/dL (75-99)
[2021-01-09 17:11] LABS: Glucose,Whole Blood 168 mg/dL (75-99)
--- NOTE | 2021-01-09 18:52 | PN ---
PROGRESS NOTE DATE OF SERVICE: 01/09/2021 This 55-year-old gentleman who was admitted with sepsis secondary to lap band port infection is being closely monitored. No chest pain. No palpitations. No fever. The cultures are negative so far. Patient is on broad spectrum IV antibiotics. Infectious Disease is following the patient closely. No chest pain. No palpitations. The patient is slightly bradycardic. PHYSICAL EXAMINATION: Pulse is 58, blood pressure 117/82, respiration 19, temperature 98.5, pulse ox 97% on room air. HEENT: Conjunctivae normal. NECK: No jugular venous distention. CARDIOVASCULAR: S1, S2 muffled. RESPIRATION: Breath sounds diminished at the bases. No rhonchi. No crackles. ABDOMEN: Soft, obese. Lap band wound infection present. No significant drainage noted. LABS: Glucose noted. WBC 15.5 and sodium is 144. ASSESSMENT: 1. Sepsis secondary to lap band port infection. Cultures are negative. On empiric antibiotics, status post lap band port removal, on IV Zosyn. 2. Hypertension. 3. Diabetes mellitus, type 2. 4. Coronary artery disease, coronary artery bypass grafting. 5. Atrial fibrillation. 6. Hypernatremia, mild. 7. Hypkalemia, present on admission. 8. Increased white count and leukocytosis. 9. Hypoalbuminemia with mild protein-calorie malnutrition. 10.Obesity with body mass index of 44.2. 11.Atrial fibrillation history. 12.History of myocardial infarction. 13.History of loop recorder. 14.History of cardiac ablation. 15.History of coronary artery disease, coronary artery bypass grafting, stent. 16.FULL CODE. RECOMMENDATIONS AND DISCUSSION: In this 55-year-old gentleman who presented with multiple complex medical issues, we will monitor the patient closely, continue the current medications, continue symptomatic treatment. The patient is currently on insulin regimen as well as on IV Zosyn. Closely monitor. We will repeat a white count. Resume the home medications. Guarded prognosis. Further recommendations to follow. MMODL / IJN: [id number] / MTDD
[2021-01-09 20:05] LABS: Glucose,Whole Blood 183 mg/dL (75-99)
[2021-01-10 01:38] LABS: Glucose,Whole Blood 169 mg/dL (75-99)
[2021-01-10] MEDS: PIPERACILLIN-TAZOBACTAM 3.375 GM in SODIUM CHLORIDE 0.9% 100 ML IVPB SCH ×3 (01:51→18:02)
[2021-01-10] MEDS: ACETAMINOPHEN TAB 325 MG TAB PO PRN (01:51)
[2021-01-10 06:29] LABS: African American GFR (CKD) >90 (>60 ml/min/1.73 sqM); Anion Gap 8 mmol/L; Blood Urea Nitrogen 19 mg/dL (9-20); Calcium 8.1 mg/dL (8.4-10.2); Carbon Dioxide 30 mmol/L (22-30); Chloride 101 mmol/L (98-107); Glucose 148 mg/dL (74-99); Non-African American GFR(CKD) 81 (>60 ml/min/1.73 sqM); Potassium 3.7 mmol/L (3.5-5.1); Sodium 139 mmol/L (137-145)
[2021-01-10 07:21] LABS: Glucose,Whole Blood 124 mg/dL (75-99)
[2021-01-10] MEDS: INSULIN ASPART (NovoLOG) 100 UNIT/ML VIAL SQ SCH ×4 (08:45→21:36)
[2021-01-10 09:05] LABS: Basophils # (A) 0.07 X 10*3/uL (0.00-0.10); Basophils % (A) 0.6 %; Eosinophils # (A) 0.29 X 10*3/uL (0.04-0.35); Eosinophils % (A) 2.4 %; HCT 39.7 % (39.6-50.0); HGB 12.6 g/dL (13.0-17.0); Lymphocytes # (A) 1.46 X 10*3/uL (0.90-5.00); Lymphocytes % (A) 11.9 %; MCH 29.1 pg (27.0-32.0); MCHC 31.7 g/dL (32.0-37.0); MCV 91.7 fL (80.0-97.0); Mean Platelet Volume 11.2 fL (9.5-12.2); Monocytes # (A) 1.81 X 10*3/uL (0.20-1.00); Monocytes % (A) 14.7 %; Neutrophils # (A) 8.53 X 10*3/uL (1.80-7.70); Neutrophils % (A) 69.2 %; Platelet Count 336 X 10*3/uL (140-440); RBC 4.33 X 10*6/uL (4.40-5.60); RDW 13.5 % (11.5-14.5); WBC 12.31 X 10*3/uL (4.50-10.00)
[2021-01-10] MEDS: MAGNESIUM OXIDE 400 MG TAB PO SCH (09:08)
[2021-01-10] MEDS: lisinopriL 20 MG TAB PO SCH (09:08)
[2021-01-10] MEDS: METOPROLOL TARTRATE 50 MG TAB PO SCH ×2 (09:08→22:33)
[2021-01-10] MEDS: ASPIRIN 81 MG PO SCH (09:08)
[2021-01-10] MEDS: MULTIVITAMINS, THERA 1 EACH TAB PO SCH (09:08)
[2021-01-10] MEDS: CHOLECALCIFEROL 25 MCG (1000 IU) TABLET PO SCH (09:08)
[2021-01-10] MEDS: ATORVASTATIN 20 MG TAB PO SCH (09:08)
[2021-01-10] MEDS: metFORMIN 500 MG TAB PO SCH ×2 (09:08→18:02)
[2021-01-10] MEDS: SOTALOL 120 MG TAB PO SCH ×2 (09:08→18:01)
[2021-01-10] MEDS: APIXABAN 5 MG TAB PO SCH ×2 (09:08→22:33)
[2021-01-10] MEDS: hydrALAZINE HCL 50 MG TAB PO SCH ×2 (09:09→22:32)
[2021-01-10] MEDS: DILTIAZEM CD 120 MG CAP.ER.24H PO SCH (09:09)
[2021-01-10] MEDS: buPROPion XL 150 MG TAB.ER.24H PO SCH (09:09)
[2021-01-10] MEDS: CHLORTHALIDONE 25 MG TAB PO SCH (09:09)
[2021-01-10] MEDS: EZETIMIBE 10 MG TAB PO SCH (09:09)
[2021-01-10] MEDS: INSULIN DETEMIR (LEVEMIR) 100 UNIT/ML SYR SQ SCH ×2 (09:15→22:32)
--- NOTE | 2021-01-10 11:23 | P.PN ---
Subjective Progress Note Date: 01/10/21 Principal diagnosis: Infected LAP-BAND port Patient doing well today. Denies pain. Was hoping he could go home he says. His white blood cell count remains elevated. T-max 100.6. Tolerating diet. Objective - Vital Signs Vital signs: Vital Signs Temp 98.5 F 01/10/21 09:04 Pulse 58 L 01/10/21 09:04 Resp 18 01/10/21 09:04 BP 156/75 01/10/21 09:04 Pulse Ox 97 01/10/21 09:04 Intake & Output 01/09/21 01/10/21 01/10/21 18:59 06:59 18:59 Intake Total 420 650 180 Balance 420 650 180 Intake: Intake, IV Titration 200 Amount Piperacillin-Tazobactam 3 200 .375 gm In Sodium Chloride 0.9% 100 ml @ 25 mls/hr IVPB Q8H [facility] Rx#: [id number] Oral 420 450 180 Other: Voiding Method Toilet # Voids 3 - Exam Abdomen: Soft, nondistended, wound clean with no drainage - Labs CBC & Chem 7: 01/10/21 05:35 01/10/21 05:35 Labs: Abnormal Lab Results - Last 24 Hours (Table) 01/09/21 01/09/21 01/09/21 Range/Units 12:02 17:09 20:04 WBC (4.50-10.00) X 10*3/uL RBC (4.40-5.60) X 10*6/uL Hgb (13.0-17.0) g/dL MCHC (32.0-37.0) g/dL Immature Gran # (0.00-0.04) X 10*3/uL Neutrophils # (1.80-7.70) X 10*3/uL Monocytes # (0.20-1.00) X 10*3/uL Glucose (74-99) mg/dL POC Glucose (mg/dL) 102 H 168 H 183 H (75-99) mg/dL Calcium (8.4-10.2) mg/dL 01/10/21 01/10/21 01/10/21 Range/Units 01:36 05:35 05:35 WBC 12.31 H (4.50-10.00) X 10*3/uL RBC 4.33 L (4.40-5.60) X 10*6/uL Hgb 12.6 L (13.0-17.0) g/dL MCHC 31.7 L (32.0-37.0) g/dL Immature Gran # 0.15 H (0.00-0.04) X 10*3/uL Neutrophils # 8.53 H (1.80-7.70) X 10*3/uL Monocytes # 1.81 H (0.20-1.00) X 10*3/uL Glucose 148 H (74-99) mg/dL POC Glucose (mg/dL) 169 H (75-99) mg/dL Calcium 8.1 L (8.4-10.2) mg/dL 01/10/21 Range/Units 07:19 WBC (4.50-10.00) X 10*3/uL RBC (4.40-5.60) X 10*6/uL Hgb (13.0-17.0) g/dL MCHC (32.0-37.0) g/dL Immature Gran # (0.00-0.04) X 10*3/uL Neutrophils # (1.80-7.70) X 10*3/uL Monocytes # (0.20-1.00) X 10*3/uL Glucose (74-99) mg/dL POC Glucose (mg/dL) 124 H (75-99) mg/dL Calcium (8.4-10.2) mg/dL Microbiology - Last 24 Hours (Table) 01/07/21 01:10 Blood Culture - Preliminary Blood No Growth after 72 hours 01/07/21 00:50 Blood Culture - Preliminary Blood No Growth after 72 hours 01/07/21 12:00 Anaerobic Culture - Preliminary Other - Other 01/07/21 12:00 Gram Stain - Final Other - Other Wound Culture - Final Assessment and Plan (1) Abdominal infection Narrative/Plan: Patient doing well at this time. Continue antibiotics. Monitor white blood cell count and fevers. Current Visit: Yes Status: Acute Code(s): K65.9 - PERITONITIS, UNSPECIFIED SNOMED Code(s): 072065986
[2021-01-10 12:20] LABS: Glucose,Whole Blood 211 mg/dL (75-99)
[2021-01-10 17:27] LABS: Glucose,Whole Blood 166 mg/dL (75-99)
[2021-01-10 20:26] LABS: Glucose,Whole Blood 191 mg/dL (75-99)
[2021-01-10] MEDS: IOPAMIDOL CONTRAST (ORAL USE) VIAL PO PRN ×2 (20:28→21:37)
--- NOTE | 2021-01-10 21:08 | PN ---
PROGRESS NOTE DATE OF SERVICE: 01/10/2021 This 55-year-old gentleman admitted with sepsis secondary to lap band port infection is improving significantly. No chest pain. No palpitations. White count is improved to 12 today. Patient is on empiric antibiotics. PHYSICAL EXAMINATION: Alert and oriented x3. Pulse 58, blood pressure 156/75, respiration 18, temperature 98.5, T-max 100.6, pulse ox 97% on room air. HEENT: Conjunctivae normal. NECK: No jugular venous distention. CARDIOVASCULAR: S1, S2 muffled. RESPIRATION: Breath sounds diminished at the bases. A few scattered rhonchi. ABDOMEN: Soft. LEGS: No edema. No swelling. NERVOUS SYSTEM: No focal deficit. LABS: WBC 12.3 and glucose is 211. ASSESSMENT: 1. Sepsis secondary to lap band port infection. Cultures are negative. On empiric antibiotics. Status post lap band port removal, on IV Zosyn. 2. Hypertension. 3. Diabetes mellitus, type 2. 4. Coronary artery disease, coronary artery bypass grafting. 5. Atrial fibrillation. 6. Hyponatremia, mild. 7. Hyperkalemia, present on admission. 8. Increased white count and leukocytosis. 9. Hypoalbuminemia mild protein-calorie malnutrition. 10.Obesity with body mass index of 44.2. 11.Atrial fibrillation history, chronic. 12.History of myocardial infarction. 13.History of loop recorder. 14.History of cardiac ablation. 15.History of coronary artery disease, coronary artery bypass grafting, stent. 16.FULL CODE. RECOMMENDATIONS AND DISCUSSION: I recommend to continue current medications, continue with symptomatic treatment. Continue with antibiotics. I would also recommend a CT scan of the abdomen and pelvis because of the fact that the patient is running a fever and still has elevated WBC. The prognosis is guarded. Further recommendations to follow. Closely follow with Surgery. MMODL / IJN: [id number] /
--- NOTE | 2021-01-10 22:53 | CT ---
EXAMINATION TYPE: CT abdomen pelvis wo con DATE OF EXAM: 01/10/2021 COMPARISON: None HISTORY: Generalized pain. CT DLP: 2649.1 mGycm Automated exposure control for dose reduction was used. Images obtained from the diaphragm to the floor the pelvis with oral contrast only. There is some mild atelectasis right posterior lung base. Heart is enlarged. There is no pericardial effusion. There is no pleural effusion. Liver spleen stomach appear intact. There is gastric bariatri c surgery. There are calcified gallstones. There is no evidence of pancreatic mass. There is some fat stranding around the gastric sleeve catheter. There is no adrenal mass. Kidneys show normal size and contour. There is no hydronephrosis. The urete rs are not dilated. Bladder distends smoothly. There is no inguinal hernia. There is no free fluid in the pelvis. There is no retroperitoneal adenopathy. There is no evidence of a pelvic mass. The lumbar vertebra have normal alignment. There is no compression fracture. There is multilevel spon dylotic changes. Bony pelvis is intact. Hip joints are intact. IMPRESSION: Patchy stranding and fluid around the catheter in the left upper quadrant suggestive of infection. Th is extends from the abdominal wall to the greater curvature of the stomach. There is dehiscensce at the surgery site and apparent removal of the pump in the subcutaneous tissue s. The catheter ends abruptly adjacent to the anterior abdominal wall. Mild atelectasis at the right posterior lung base.
[2021-01-11 02:15] LABS: Glucose,Whole Blood 100 mg/dL (75-99)
[2021-01-11] MEDS: PIPERACILLIN-TAZOBACTAM 3.375 GM in SODIUM CHLORIDE 0.9% 100 ML IVPB SCH ×3 (03:42→17:44)
[2021-01-11] MEDS: metFORMIN 500 MG TAB PO SCH ×2 (06:59→17:08)
[2021-01-11 07:36] LABS: HCT 39.7 % (39.0-53.0); HGB 12.9 gm/dL (13.0-17.5); MCH 29.7 pg (25.0-35.0); MCHC 32.6 g/dL (31.0-37.0); MCV 91.2 fL (80.0-100.0); Mean Platelet Volume 8.1; Platelet Count 360 k/uL (150-450); RBC 4.36 m/uL (4.30-5.90); RDW 12.8 % (11.5-15.5); WBC 15.9 k/uL (3.8-10.6)
[2021-01-11 08:24] LABS: Glucose,Whole Blood 71 mg/dL (75-99)
[2021-01-11] MEDS: INSULIN ASPART (NovoLOG) 100 UNIT/ML VIAL SQ SCH ×4 (08:38→21:12)
[2021-01-11] MEDS: APIXABAN 5 MG TAB PO SCH ×2 (08:44→21:12)
[2021-01-11] MEDS: MULTIVITAMINS, THERA 1 EACH TAB PO SCH (08:44)
[2021-01-11] MEDS: ASPIRIN 81 MG PO SCH (08:44)
[2021-01-11] MEDS: MAGNESIUM OXIDE 400 MG TAB PO SCH (08:44)
[2021-01-11] MEDS: CHOLECALCIFEROL 25 MCG (1000 IU) TABLET PO SCH (08:44)
[2021-01-11] MEDS: ATORVASTATIN 20 MG TAB PO SCH (08:44)
[2021-01-11] MEDS: METOPROLOL TARTRATE 50 MG TAB PO SCH ×2 (08:45→21:12)
[2021-01-11] MEDS: lisinopriL 20 MG TAB PO SCH (08:45)
[2021-01-11] MEDS: INSULIN DETEMIR (LEVEMIR) 100 UNIT/ML SYR SQ SCH ×2 (08:45→21:13)
[2021-01-11] MEDS: hydrALAZINE HCL 50 MG TAB PO SCH ×2 (09:04→21:12)
[2021-01-11] MEDS: EZETIMIBE 10 MG TAB PO SCH (09:04)
[2021-01-11] MEDS: SOTALOL 120 MG TAB PO SCH ×2 (09:04→17:43)
[2021-01-11] MEDS: DILTIAZEM CD 120 MG CAP.ER.24H PO SCH (09:05)
[2021-01-11] MEDS: CHLORTHALIDONE 25 MG TAB PO SCH (09:05)
[2021-01-11] MEDS: buPROPion XL 150 MG TAB.ER.24H PO SCH (09:05)
[2021-01-11 09:12] LABS: Eosinophils # (M) 0.48 k/uL (0-0.7); Lymphocytes # (M) 1.91 k/uL (1.0-4.8); Monocytes # (M) 2.23 k/uL (0-1.0); Neutrophils # (M) 11.45 k/uL (1.3-7.7); Neutrophils % (M) 72 %; Nucleated Red Blood Cells 0 /100 WBC (0-0); Total Cells Counted 200
--- NOTE | 2021-01-11 10:21 | P.PN ---
Subjective Progress Note Date: 01/11/21 Principal diagnosis: Infected LAP-BAND port Patient has no new complaints. White blood cell count increased again at 15.9. He is afebrile. Tolerating his diet. CAT scan was ordered last night. CAT scan shows changes slightly suspicious for gastric or erosion. Objective - Vital Signs Vital signs: Vital Signs Temp 98.4 F 01/11/21 08:00 Pulse 58 L 01/11/21 08:00 Resp 18 01/11/21 08:00 BP 162/78 01/11/21 08:00 Pulse Ox 94 L 01/11/21 08:00 Intake & Output 01/10/21 01/11/21 01/11/21 18:59 06:59 18:59 Intake Total 430 650 Balance 430 650 Intake: Intake, IV Titration 100 Amount Piperacillin-Tazobactam 3 100 .375 gm In Sodium Chloride 0.9% 100 ml @ 25 mls/hr IVPB Q8H [facility] Rx#: [id number] Oral 430 550 Other: # Voids 2 2 - Exam Abdomen: Soft, nondistended, mild tenderness, dressing clean and dry - Labs CBC & Chem 7: 01/11/21 07:02 01/10/21 05:35 Labs: Abnormal Lab Results - Last 24 Hours (Table) 01/10/21 01/10/21 01/10/21 Range/Units 12:19 17:26 20:23 WBC (3.8-10.6) k/uL Hgb (13.0-17.5) gm/dL Neutrophils # (Manual) (1.3-7.7) k/uL Monocytes # (Manual) (0-1.0) k/uL POC Glucose (mg/dL) 211 H 166 H 191 H (75-99) mg/dL 01/11/21 01/11/21 01/11/21 Range/Units 02:13 07:02 08:23 WBC 15.9 H (3.8-10.6) k/uL Hgb 12.9 L (13.0-17.5) gm/dL Neutrophils # (Manual) 11.45 H (1.3-7.7) k/uL Monocytes # (Manual) 2.23 H (0-1.0) k/uL POC Glucose (mg/dL) 100 H 71 L (75-99) mg/dL Microbiology - Last 24 Hours (Table) 01/07/21 01:10 Blood Culture - Preliminary Blood No Growth after 96 hours 01/07/21 00:50 Blood Culture - Preliminary Blood No Growth after 96 hours Assessment and Plan (1) Abdominal infection Narrative/Plan: Patient doing well at this time. Continue antibiotics. We'll schedule for EGD by Dr. Acosta tomorrow. Current Visit: Yes Status: Acute Code(s): K65.9 - PERITONITIS, UNSPECIFIED SNOMED Code(s): 587850879
[2021-01-11 12:23] LABS: Glucose,Whole Blood 94 mg/dL (75-99)
[2021-01-11 17:25] LABS: Glucose,Whole Blood 175 mg/dL (75-99)
--- NOTE | 2021-01-11 19:56 | PN ---
PROGRESS NOTE DATE OF SERVICE: 01/11/2021 This 55-year-old gentleman who was admitted with sepsis secondary to lap band port infection also had elevated white count today. White count today is 15.9. The patient is not running a fever. Patient has some mild bradycardia. Otherwise, patient is on broad-spectrum IV antibiotics. Surgery is following the patient closely. Planning EGD tomorrow. Abdominal and pelvis CAT scan was done which showed patchy stranding and fluid around the catheter in the left upper quadrant suggestive of infection. Extends abdominal wall to greater curvature of the stomach and some dehiscence at surgery site and apparently removal of the pump into subcutaneous tissue. No chest pain. No palpitations. No fever. PHYSICAL EXAMINATION: Alert and oriented x2. Pulse is 54, blood pressure 161/72, respiration 18, temperature 98.3, pulse ox 98 percent on room air. HEENT: Conjunctivae normal. NECK: No JVD. CARDIOVASCULAR: S1, S2, muffled. RESPIRATORY: Diminished breath sounds at the bases. Scattered rhonchi. ABDOMEN: Soft, obese. No guarding, no rigidity. No mass palpable. LEGS: No edema. No swelling. NERVOUS SYSTEM: No focal deficits. LAB STUDIES: WBC 15.9. Other labs are noted. ASSESSMENT: 1. Sepsis secondary to lap band port infection. Cultures are negative. On empiric IV antibiotics, status post lap band port removal, on IV Zosyn. 2. Hypertension. 3. Increased WBC. 4. Diabetes mellitus type 2. 5. History of coronary artery disease/coronary artery bypass grafting. 6. Atrial fibrillation. 7. Hyponatremia, mild. 8. Hyperkalemia, present on admission. 9. Hypoalbuminemia with mild protein calorie malnutrition. 10.Obesity with body mass index of 44.2. 11.Atrial fibrillation, chronic. 12.History of myocardial infarction. 13.History of loop recorder. 14.History of cardiac ablation. 15.History of coronary artery disease, coronary artery bypass grafting, stent. 16.FULL CODE. RECOMMENDATIONS AND DISCUSSION: I recommend to continue current medications, management and symptomatic treatment. Continue with IV antibiotics. Otherwise, follow the cultures and follow closely with surgery. Surgery is following the patient closely, monitoring and further recommendations to follow. MMODL / IJN: [id number] /
[2021-01-11 20:34] LABS: Glucose,Whole Blood 225 mg/dL (75-99)
[2021-01-12] MEDS: PIPERACILLIN-TAZOBACTAM 3.375 GM in SODIUM CHLORIDE 0.9% 100 ML IVPB SCH ×3 (02:16→17:50)
[2021-01-12 05:59] LABS: ALT 31 U/L (4-49); AST 34 U/L (17-59); African American GFR (CKD) >90 (>60 ml/min/1.73 sqM); Albumin 3.1 g/dL (3.5-5.0); Albumin/Globulin Ratio 0.9; Alkaline Phosphatase 75 U/L (38-126); Anion Gap 10 mmol/L; Blood Urea Nitrogen 16 mg/dL (9-20); Calcium 9.2 mg/dL (8.4-10.2); Carbon Dioxide 32 mmol/L (22-30); Chloride 96 mmol/L (98-107); Globulin 3.3 g/dL; Glucose 111 mg/dL (74-99); Non-African American GFR(CKD) 88 (>60 ml/min/1.73 sqM); Sodium 138 mmol/L (137-145); Total Bilirubin 0.4 mg/dL (0.2-1.3); Total Protein 6.4 g/dL (6.3-8.2)
[2021-01-12 08:06] LABS: Glucose,Whole Blood 100 mg/dL (75-99)
[2021-01-12 09:19] LABS: Basophils # (A) 0.14 X 10*3/uL (0.00-0.10); Basophils % (A) 0.9 %; Eosinophils # (A) 0.47 X 10*3/uL (0.04-0.35); HCT 45.3 % (39.6-50.0); HGB 14.1 g/dL (13.0-17.0); Lymphocytes # (A) 2.12 X 10*3/uL (0.90-5.00); Lymphocytes % (A) 13.8 %; MCH 28.5 pg (27.0-32.0); MCHC 31.1 g/dL (32.0-37.0); MCV 91.5 fL (80.0-97.0); Mean Platelet Volume 10.9 fL (9.5-12.2); Neutrophils # (A) 10.62 X 10*3/uL (1.80-7.70); Platelet Count 450 X 10*3/uL (140-440); RBC 4.95 X 10*6/uL (4.40-5.60); RDW 13.2 % (11.5-14.5); WBC 15.41 X 10*3/uL (4.50-10.00)
[2021-01-12] MEDS ORDERED: IV FLUID CONTINUATION 500 ML IV ONE (10:23)
[2021-01-12] MEDS ORDERED: LIDOCAINE 1% INJ 10MG/ML (20 ML MDV) ONE (10:24)
[2021-01-12] MEDS ORDERED: PROPOFOL 10 MG/ML 20 ML VIAL IV ONE (10:24)
--- NOTE | 2021-01-12 10:38 | P.OP ---
Date of Procedure: 01/12/21 Preoperative Diagnosis: Abdominal pain Postoperative Diagnosis: Erosion of LAP-BAND Procedure(s) Performed: EGD Anesthesia: MAC Surgeon: Mike Acosta Pathology: none sent Condition: stable Disposition: PACU Description of Procedure: The patient placed on the endoscopy table in the lateral position. He received IV sedation. The gastroscope placed oropharynx passed in the esophagus and stomach. Scope was placed through the pylorus. The first second portion of duodenum appeared normal. Scope was then brought back the antrum this appeared normal scope was retroflexed the meters stomach appeared normal. Just below the GE junction there was evidence of a LAP-BAND erosion. A portion of LAP-BAND device was visualized. The scope was then withdrawn the distal esophagus. Normal. The proximal esophagus.. Scope withdrawn for patient.
[2021-01-12] MEDS: INSULIN ASPART (NovoLOG) 100 UNIT/ML VIAL SQ SCH ×4 (10:58→22:04)
[2021-01-12] MEDS: DILTIAZEM CD 120 MG CAP.ER.24H PO SCH (10:59)
[2021-01-12] MEDS: SOTALOL 120 MG TAB PO SCH ×2 (10:59→17:50)
[2021-01-12] MEDS: MAGNESIUM OXIDE 400 MG TAB PO SCH (10:59)
[2021-01-12] MEDS: METOPROLOL TARTRATE 50 MG TAB PO SCH ×2 (10:59→22:15)
[2021-01-12] MEDS: metFORMIN 500 MG TAB PO SCH ×2 (10:59→17:50)
[2021-01-12] MEDS: lisinopriL 20 MG TAB PO SCH (10:59)
[2021-01-12] MEDS: hydrALAZINE HCL 50 MG TAB PO SCH ×2 (10:59→22:15)
[2021-01-12] MEDS: CHLORTHALIDONE 25 MG TAB PO SCH (11:00)
[2021-01-12] MEDS: ASPIRIN 81 MG PO SCH (11:00)
[2021-01-12] MEDS: MULTIVITAMINS, THERA 1 EACH TAB PO SCH (11:00)
[2021-01-12] MEDS: buPROPion XL 150 MG TAB.ER.24H PO SCH (11:00)
[2021-01-12] MEDS: ATORVASTATIN 20 MG TAB PO SCH (11:00)
[2021-01-12] MEDS: CHOLECALCIFEROL 25 MCG (1000 IU) TABLET PO SCH (11:00)
[2021-01-12] MEDS: EZETIMIBE 10 MG TAB PO SCH (11:00)
[2021-01-12] MEDS: APIXABAN 5 MG TAB PO SCH ×2 (11:00→22:15)
[2021-01-12] MEDS: INSULIN DETEMIR (LEVEMIR) 100 UNIT/ML SYR SQ SCH ×2 (11:01→22:15)
[2021-01-12 12:24] LABS: Glucose,Whole Blood 79 mg/dL (75-99)
[2021-01-12 16:59] LABS: Glucose,Whole Blood 102 mg/dL (75-99)
--- NOTE | 2021-01-12 20:24 | PN ---
PROGRESS NOTE DATE OF SERVICE: 01/12/2021 This 55-year-old gentleman who was admitted with sepsis secondary to lap band port infection is being closely monitored at this time. No chest pain. No palpitations. No fever. The patient underwent EGD which showed lap band erosion. PHYSICAL EXAMINATION: Alert and oriented x3. Pulse is 50, blood pressure 152/84, respirations 17, temperature 98.3, pulse ox 97% on room air. HEENT: Conjunctivae normal. NECK: No jugular venous distention. CARDIOVASCULAR: S1, S2 muffled. RESPIRATION: Breath sounds diminished at the bases. A few scattered rhonchi. ABDOMEN: Soft, obese. Minimal tenderness in the upper abdomen. No guarding. No rigidity. LEGS: No edema. No swelling. NERVOUS SYSTEM: No focal deficit. LABS: WBC 15.41. Sodium 138. ASSESSMENT: 1. Sepsis secondary to lap band port infection and possible erosion. Cultures negative. On empiric IV antibiotics. Status post lap band port removal. On IV Zosyn. 2. Hypertension. 3. Increased white count. 4. Diabetes mellitus, type 2. 5. History of coronary artery disease, coronary artery bypass grafting. 6. Atrial fibrillation. 7. Hyponatremia, mild. 8. Hyperkalemia, present on admission. 9. Hypoalbuminemia with mild protein-calorie malnutrition. 10.Obesity with body mass index of 44.2. 11.Atrial fibrillation, chronic. 12.History of myocardial infarction. 13.History of loop recorder. 14.History of cardiac ablation. 15.History of coronary artery disease, coronary artery bypass grafting, stent. 16.FULL CODE. RECOMMENDATIONS AND DISCUSSION: I recommend to continue current medications, continue with the monitoring, symptomatic treatment. Otherwise at this time I recommend continuing with the broad-spectrum IV antibiotics. Closely monitor. Guarded prognosis. Further recommendations to follow. Closely follow with Surgery. Prognosis guarded. MMODL / IJN: [id number] /
[2021-01-12 20:40] LABS: Glucose,Whole Blood 118 mg/dL (75-99)
[2021-01-13] MEDS: PIPERACILLIN-TAZOBACTAM 3.375 GM in SODIUM CHLORIDE 0.9% 100 ML IVPB SCH ×3 (01:54→17:32)
[2021-01-13 07:36] LABS: Glucose,Whole Blood 65 mg/dL (75-99)
[2021-01-13] MEDS: metFORMIN 500 MG TAB PO SCH (07:45)
[2021-01-13] MEDS: INSULIN ASPART (NovoLOG) 100 UNIT/ML VIAL SQ SCH ×4 (07:45→20:03)
[2021-01-13] MEDS: SOTALOL 120 MG TAB PO SCH ×2 (07:57→17:32)
[2021-01-13] MEDS: MULTIVITAMINS, THERA 1 EACH TAB PO SCH (07:57)
[2021-01-13] MEDS: CHOLECALCIFEROL 25 MCG (1000 IU) TABLET PO SCH (07:57)
[2021-01-13] MEDS: hydrALAZINE HCL 50 MG TAB PO SCH ×2 (07:58→20:17)
[2021-01-13] MEDS: ATORVASTATIN 20 MG TAB PO SCH (07:58)
[2021-01-13] MEDS: EZETIMIBE 10 MG TAB PO SCH (07:58)
[2021-01-13] MEDS: ASPIRIN 81 MG PO SCH (07:58)
[2021-01-13] MEDS: APIXABAN 5 MG TAB PO SCH (07:58)
[2021-01-13] MEDS: lisinopriL 20 MG TAB PO SCH (07:58)
[2021-01-13] MEDS: DILTIAZEM CD 120 MG CAP.ER.24H PO SCH (07:59)
[2021-01-13] MEDS: MAGNESIUM OXIDE 400 MG TAB PO SCH (07:59)
[2021-01-13] MEDS: CHLORTHALIDONE 25 MG TAB PO SCH (07:59)
[2021-01-13] MEDS: METOPROLOL TARTRATE 50 MG TAB PO SCH ×2 (07:59→20:17)
[2021-01-13] MEDS: buPROPion XL 150 MG TAB.ER.24H PO SCH (07:59)
[2021-01-13 08:00] LABS: Glucose,Whole Blood 64 mg/dL (75-99)
[2021-01-13 08:36] LABS: Glucose,Whole Blood 89 mg/dL (75-99)
[2021-01-13 09:04] VITALS: BMI 44.1
[2021-01-13] MEDS ORDERED: LIDOCAINE 1% (10MG/ML) FOR IV START INTRADERMA PRN (09:51)
[2021-01-13] MEDS ORDERED: MIDAZOLAM 2 MG/2 ML VIAL IV PRN (09:51)
[2021-01-13] MEDS ORDERED: DEXAMETHASONE SOD PHOSPHATE 4 MG/ML 1 ML VIAL IV ONE (09:51)
[2021-01-13] MEDS ORDERED: ONDANSETRON 4 MG/2 ML VIAL IVP ONE (09:51)
[2021-01-13 13:33] LABS: Glucose,Whole Blood 111 mg/dL (75-99)
--- NOTE | 2021-01-13 14:08 | P.PN ---
Subjective Progress Note Date: 01/13/21 CHIEF COMPLAINT: Lap band port infection HISTORY OF PRESENT ILLNESS: Patient is status post lap band port removal. His pain is controlled. He is status post EGD that had revealed erosion of lap band. He denies any nausea or vomiting. Afebrile Patient seen and examined with Dr. talley PHYSICAL EXAM: VITAL SIGNS: Reviewed. GENERAL: Well-developed in no acute distress. HEENT: No sclera icterus. Extraocular movements grossly intact. Moist buccal mucosa. Head is atraumatic, normocephalic. ABDOMEN: Soft. Nondistended. Incisional dressing clean dry and intact NEUROLOGIC: Alert and oriented. Cranial nerves II through XII grossly intact. ASSESSMENT: 1. Erosion of lap band 2. Infected lap band port status post lap band port removal PLAN: -Patient scheduled for lap band removal on 01/14/[address] talley -Keep patient nothing by mouth after midnight -Continue pain medication as needed -Continue IV antibiotics -Hold [facility] Physician Engineering Coordinator note has been reviewed by physician. Signing provider agrees with the documented findings, assessment, and plan of care. Objective - Vital Signs Vital signs: Vital Signs Temp 98 F 01/13/21 07:35 Pulse 51 L 01/13/21 07:35 Resp 18 01/13/21 07:35 BP 169/82 01/13/21 07:35 Pulse Ox 95 01/13/21 07:35 Intake & Output 01/12/21 01/13/21 01/13/21 18:59 06:59 18:59 Intake Total 230 500 Balance 230 500 Weight 139.706 kg Intake: IV 50 Oral 180 500 Other: Voiding Method Toilet # Voids 3 - Labs CBC & Chem 7: 01/12/21 05:08 01/12/21 05:08 Labs: Abnormal Lab Results - Last 24 Hours (Table) 01/12/21 01/12/21 01/13/21 Range/Units 16:56 20:39 07:30 POC Glucose (mg/dL) 102 H 118 H 65 L (75-99) mg/dL 01/13/21 01/13/21 Range/Units 07:47 13:13 POC Glucose (mg/dL) 64 L 111 H (75-99) mg/dL Microbiology - Last 24 Hours (Table) 01/07/21 01:10 Blood Culture - Final Blood No Growth after 144 hours 01/07/21 00:50 Blood Culture - Final Blood No Growth after 144 hours
--- NOTE | 2021-01-13 17:28 | XR ---
EXAMINATION TYPE: XR chest 1V portable DATE OF EXAM: 01/13/2021 COMPARISON: NONE HISTORY: Short of breath TECHNIQUE: Single view FINDINGS: There is no heart failure nor confluent pneumonic infiltrate. Heart is enlarged. There are sternal wires. Costophrenic angles are clear. There are no hilar masses. Bony thorax is intact. IMPRESSION: No active cardiopulmonary disease.
[2021-01-13 17:33] LABS: Glucose,Whole Blood 114 mg/dL (75-99)
--- NOTE | 2021-01-13 17:52 | PN ---
PROGRESS NOTE DATE OF SERVICE: 01/13/2021. This 55-year-old gentleman who was admitted with sepsis secondary lab band port infection and possible erosion is scheduled to have surgery tomorrow by Dr. Acosta. No chest pain. No palpitations. No fever. PHYSICAL EXAMINATION: Alert and oriented times three. Pulse 45, blood pressure 150/76. Respiratory rate 16. Temperature 97.2, pulse ox 98% on room air. HEENT: Conjunctivae normal. Neck: No JVD. CARDIOVASCULAR: S1, S2. RESPIRATORY: Breath sounds diminished in the bases. A few rhonchi. ABDOMEN: Soft, nontender. NERVOUS SYSTEM: No focal deficits. LAB STUDIES: WBC 15.1 and sodium 130. Potassium 4.1. ASSESSMENT: 1. Sepsis secondary to lap band infection as well as possible erosion. Cultures negative so far. On empiric antibiotics status post lap band removal on IV Zosyn. 2. Hypertension. 3. Increased WBC. 4. Diabetes mellitus type 2. 5. History of coronary artery disease, coronary artery bypass grafting. 6. Atrial fibrillation history. 7. Hyponatremia, mild. 8. Hyperkalemia, present on admission. 9. Hypoalbuminemia with mild protein calorie malnutrition. 10.Obesity with body mass index of 44.2, atrial fibrillation, chronic. 11.History of myocardial infarction. 12.History of loop recorder. 13.History of cardiac ablation. 14.History of coronary artery disease, coronary artery bypass grafting, stent. 15.FULL CODE. RECOMMENDATIONS AND DISCUSSION: Continue current medications, management and symptomatic treatment. Otherwise, repeat labs. Also recommend baseline chest x-ray, EKG. Continue with IV antibiotics. Closely follow with surgery. Further recommendations to follow. MMODL / IJN: [id number] /
[2021-01-13 20:03] LABS: Glucose,Whole Blood 149 mg/dL (75-99)
[2021-01-14] MEDS: PIPERACILLIN-TAZOBACTAM 3.375 GM in SODIUM CHLORIDE 0.9% 100 ML IVPB SCH ×3 (04:39→21:19)
[2021-01-14 06:35] LABS: Basophils # (A) 0.1 k/uL (0-0.2); Basophils % (A) 1 %; Eosinophils # (A) 0.6 k/uL (0-0.7); Eosinophils % (A) 5 %; HCT 43.5 % (39.0-53.0); HGB 14.2 gm/dL (13.0-17.5); Lymphocytes # (A) 1.7 k/uL (1.0-4.8); Lymphocytes % (A) 14 %; MCH 29.7 pg (25.0-35.0); MCHC 32.5 g/dL (31.0-37.0); MCV 91.4 fL (80.0-100.0); Mean Platelet Volume 8.1; Monocytes # (A) 0.8 k/uL (0-1.0); Monocytes % (A) 7 %; Neutrophils # (A) 8.6 k/uL (1.3-7.7); Neutrophils % (A) 71 %; Platelet Count 473 k/uL (150-450); RBC 4.76 m/uL (4.30-5.90); RDW 12.6 % (11.5-15.5); WBC 12.1 k/uL (3.8-10.6)
[2021-01-14 06:58] LABS: African American GFR (CKD) >90 (>60 ml/min/1.73 sqM); Anion Gap 9 mmol/L; Blood Urea Nitrogen 11 mg/dL (9-20); Calcium 9.3 mg/dL (8.4-10.2); Carbon Dioxide 33 mmol/L (22-30); Chloride 97 mmol/L (98-107); Glucose 144 mg/dL (74-99); Non-African American GFR(CKD) 83 (>60 ml/min/1.73 sqM); Potassium 4.3 mmol/L (3.5-5.1); Sodium 139 mmol/L (137-145)
[2021-01-14] MEDS ORDERED: HYDROmorphone 0.5 MG/0.5 ML SYRINGE IVP PRN (07:00)
[2021-01-14 08:09] LABS: Glucose,Whole Blood 127 mg/dL (75-99)
[2021-01-14] MEDS: ATORVASTATIN 20 MG TAB PO SCH (08:15)
[2021-01-14] MEDS: lisinopriL 20 MG TAB PO SCH (08:15)
[2021-01-14] MEDS: buPROPion XL 150 MG TAB.ER.24H PO SCH (08:15)
[2021-01-14] MEDS: CHLORTHALIDONE 25 MG TAB PO SCH (08:15)
[2021-01-14] MEDS: METOPROLOL TARTRATE 50 MG TAB PO SCH ×2 (08:15→21:19)
[2021-01-14] MEDS: ASPIRIN 81 MG PO SCH (08:15)
[2021-01-14] MEDS: MAGNESIUM OXIDE 400 MG TAB PO SCH (08:15)
[2021-01-14] MEDS: DILTIAZEM CD 120 MG CAP.ER.24H PO SCH (08:16)
[2021-01-14] MEDS: EZETIMIBE 10 MG TAB PO SCH (08:16)
[2021-01-14] MEDS: MULTIVITAMINS, THERA 1 EACH TAB PO SCH (08:16)
[2021-01-14] MEDS: SOTALOL 120 MG TAB PO SCH ×2 (08:16→18:29)
[2021-01-14] MEDS: hydrALAZINE HCL 50 MG TAB PO SCH ×2 (08:16→21:19)
[2021-01-14] MEDS: CHOLECALCIFEROL 25 MCG (1000 IU) TABLET PO SCH (08:16)
[2021-01-14] MEDS: INSULIN ASPART (NovoLOG) 100 UNIT/ML VIAL SQ SCH ×4 (08:24→21:18)
--- NOTE | 2021-01-14 10:49 | P.EN ---
Patient has been evaluated by a medical doctor and is medically stable and clear for surgery today.
[2021-01-14 12:13] LABS: Glucose,Whole Blood 130 mg/dL (75-99)
[2021-01-14] MEDS ORDERED: IV FLUID CONTINUATION 1,000 ML IV ONE (12:45)
[2021-01-14] MEDS ORDERED: HEPARIN SODIUM,PORCINE/PF 5,000 UNIT/0.5 ML SYRINGE SQ ONE (13:08)
[2021-01-14] MEDS ORDERED: HEPARIN SODIUM,PORCINE 5,000 UNIT/ML 1 ML VIAL SQ ONE (13:13)
[2021-01-14] MEDS ORDERED: ONDANSETRON 4 MG/2 ML VIAL IVP ONE (13:14)
[2021-01-14] MEDS ORDERED: PROPOFOL 10 MG/ML 20 ML VIAL IV ONE (14:09)
[2021-01-14] MEDS ORDERED: SUCCINYLCHOLINE CHLORIDE VIAL 200 MG/10 ML VIAL IV ONE (14:09)
[2021-01-14] MEDS ORDERED: LIDOCAINE 1% INJ 10MG/ML (20 ML MDV) ONE (14:09)
[2021-01-14] MEDS ORDERED: ROCURONIUM 10 MG/ML (5 ML VIAL) IV ONE (14:09)
[2021-01-14] MEDS ORDERED: GLYCOPYRROLATE 0.2 MG/ML 2 ML VIAL ONE (14:09)
[2021-01-14] MEDS ORDERED: fentaNYL (PF) 50 MCG/ML 2 ML AMP ONE (14:09)
[2021-01-14] MEDS ORDERED: NEOSTIGMINE 1 MG/ML 10 ML VIAL ONE (14:09)
[2021-01-14] MEDS ORDERED: MIDAZOLAM 2 MG/2 ML VIAL ONE (14:09)
[2021-01-14] MEDS ORDERED: BUPIVACAINE (PF) 0.5% 30 ML VIAL SQ ONE (14:44)
[2021-01-14] MEDS ORDERED: LACTATED RINGERS 1,000 ML IV ONE ×3 (14:46→16:01)
[2021-01-14] MEDS ORDERED: METOCLOPRAMIDE 5 MG/ML 2 ML VIAL IVP PRN (15:38)
[2021-01-14] MEDS ORDERED: ONDANSETRON 4 MG/2 ML VIAL IVP PRN (15:38)
[2021-01-14] MEDS ORDERED: NALOXONE 0.4 MG/ML 1 ML VIAL IV PRN (15:38)
--- NOTE | 2021-01-14 16:04 | P.OP ---
Date of Procedure: 01/14/21 Preoperative Diagnosis: LAP-BAND erosion Postoperative Diagnosis: Lap band erosion Adhesions Procedure(s) Performed: Diagnostic laparoscopy Exploratory laparotomy Removal of LAP-BAND device. Gastrorrhaphy Anesthesia: MAC Surgeon: Mike Acosta Pathology: none sent Condition: stable Disposition: PACU Description of Procedure: The patient's placed on the operative table in the supine position. He received general endotracheal tube anesthesia. His abdomen was prepped and draped usual fashion. The patient placed in dorsal 5 position. Using a 5 mm blade was trocar under direct visualization panel cavity was entered in the left abdomen. There was extensive adhesions seen throughout the pleural cavity. At this point the procedure was converted to an open procedure. The trochars withdrawn. The skin was incised in midline. The left cautery the subcutaneous tissue of the abdominal wall were divided. The fascia was divided midline. The Bookwalter retractors placed a wound. There were significant adhesions around the area of the LAP-BAND port site the PEG tube was then dissected free off the abdominal wall. And then the stomach was visualized. The site of erosion was visualized. Using left cautery the stomach was incised next the LAP-BAND device. And then the LAP-BAND device was cut and withdrawn from around this stomach. The gastric repair was performed using 0 Ethibond suture. And then an omental patch was placed over top the repair. The stomach was then insufflated with 500 mL of methylene blue normal saline. There is known to any leak. At this point there was irrigated. A DENA drains placed through separate stab incision placed across the gastric repair. The fascia was closed loop #1 PDS suture. Skin was closed yaquelin. Patient top procedure well. And was sent to recovery room
--- NOTE | 2021-01-14 16:12 | XR ---
KUB HISTORY: Intraoperative missing needle count Frontal KUB on 2 images There is retained contrast material within the bowel, there are overlying tubing, yaquelin, patient is post median sternotomy. No evident needle in the [id number]. The entire pelvis is not included on exam.
[2021-01-14] MEDS ORDERED: HYDROmorphone 0.5 MG/0.5 ML SYRINGE IVP ONE ×4 (16:18→16:50)
[2021-01-14 17:24] LABS: Glucose,Whole Blood 168 mg/dL (75-99)
[2021-01-14] MEDS: LACTATED RINGERS 1,000 ML IV SCH ×2 (17:36→17:37)
[2021-01-14] MEDS: FLUCONAZOLE IN NACL,ISO-OSM 400 MG in SALINE 1 200ML.BAG IVPB SCH (18:00)
--- NOTE | 2021-01-14 18:11 | PN ---
PROGRESS NOTE DATE OF SERVICE: 01/14/2021 This 55 -year-old gentleman who was admitted with sepsis secondary to lap band infection is being closely monitored at this time. The patient had suspicious erosion. Patient underwent surgery by Dr. Dave muhammad who performed diagnostic laparoscopic exploratory laparotomy, removal of the lap band device and gastrography. No chest pain. No palpitations. No fever. EXAM: Alert, oriented x3. Pulse is 98. Blood pressure 108/83, respiration 15, temperature 96.9, pulse ox 98% on room air. HEENT: Conjunctivae normal. NECK: No JVD. CARDIOVASCULAR: S1, S2 muffled. RESPIRATORY: Breath sounds diminished in the bases. A few scattered rhonchi. ABDOMEN: Soft, status post surgery. LEGS: No edema. No swelling. NERVOUS SYSTEM: No focal deficits. LABS: WBC 2.1, sodium 139. Other labs are noted. ASSESSMENT: 1. Sepsis secondary to lap band infection as well as possible erosion status post diagnostic laparoscopy, exploratory laparotomy and removal of the lap band device and as well as gastrography. 2. Hypertension. 3. Increased WBC. 4. Diabetes mellitus type 2. 5. History of coronary artery disease. coronary artery bypass grafting. 6. Atrial fibrillation history. 7. Hyponatremia mild. 8. Hyperkalemia present on admission. 9. Hypoalbuminemia with mild protein calorie malnutrition. 10.Obesity with body mass index of 44.2. 11.Atrial fibrillation chronic. 12.History of myocardial infarction. 13.History of loop recorder. 14.History of cardiac ablation. 15.History of coronary artery disease/coronary artery bypass grafting/ stent. 16.FULL CODE. RECOMMENDATIONS AND DISCUSSION: I recommend to continue current medications, management and symptomatic treatment. Use p.r.n. medications for the blood pressure elevations. Otherwise, continue to monitor. Continue the antibiotics. We will follow the cultures. Repeat labs. Guarded prognosis because of multiple complex medical issues. Further recommendations to follow. MMODL / IJN: [id number] /
[2021-01-14] MEDS: INSULIN DETEMIR (LEVEMIR) 100 UNIT/ML SYR SQ SCH (18:35)
[2021-01-14 20:07] LABS: Glucose,Whole Blood 198 mg/dL (75-99)
[2021-01-14] MEDS: HYDROmorphone 1 MG/ML 1 ML SYRINGE IVP PRN (21:20)
[2021-01-15] MEDS: HYDROmorphone 1 MG/ML 1 ML SYRINGE IVP PRN ×4 (01:51→18:21)
[2021-01-15] MEDS: PIPERACILLIN-TAZOBACTAM 3.375 GM in SODIUM CHLORIDE 0.9% 100 ML IVPB SCH ×3 (04:00→18:22)
[2021-01-15 07:58] LABS: Glucose,Whole Blood 235 mg/dL (75-99)
[2021-01-15] MEDS: INSULIN ASPART (NovoLOG) 100 UNIT/ML VIAL SQ SCH ×4 (09:27→21:12)
[2021-01-15 09:32] LABS: Basophils # (A) 0.07 X 10*3/uL (0.00-0.10); Basophils % (A) 0.3 %; Eosinophils # (A) 0.01 X 10*3/uL (0.04-0.35); Eosinophils % (A) 0 %; HCT 46.9 % (39.6-50.0); HGB 14.5 g/dL (13.0-17.0); Lymphocytes # (A) 0.94 X 10*3/uL (0.90-5.00); Lymphocytes % (A) 4.2 %; MCH 28.2 pg (27.0-32.0); MCHC 30.9 g/dL (32.0-37.0); MCV 91.1 fL (80.0-97.0); Mean Platelet Volume 10.7 fL (9.5-12.2); Monocytes # (A) 1.18 X 10*3/uL (0.20-1.00); Monocytes % (A) 5.3 %; Neutrophils # (A) 19.96 X 10*3/uL (1.80-7.70); Neutrophils % (A) 89.1 %; Platelet Count 544 X 10*3/uL (140-440); RBC 5.15 X 10*6/uL (4.40-5.60); RDW 13.2 % (11.5-14.5)
[2021-01-15] MEDS: SOTALOL 120 MG TAB PO SCH ×2 (10:57→17:49)
[2021-01-15] MEDS: ASPIRIN 81 MG PO SCH (10:57)
[2021-01-15] MEDS: ATORVASTATIN 20 MG TAB PO SCH (10:57)
[2021-01-15] MEDS: EZETIMIBE 10 MG TAB PO SCH (10:58)
[2021-01-15] MEDS: CHOLECALCIFEROL 25 MCG (1000 IU) TABLET PO SCH (10:58)
[2021-01-15] MEDS: hydrALAZINE HCL 50 MG TAB PO SCH ×2 (10:58→20:45)
[2021-01-15] MEDS: CHLORTHALIDONE 25 MG TAB PO SCH (10:58)
[2021-01-15] MEDS: DILTIAZEM CD 120 MG CAP.ER.24H PO SCH (10:58)
[2021-01-15] MEDS: buPROPion XL 150 MG TAB.ER.24H PO SCH (10:58)
[2021-01-15] MEDS: lisinopriL 20 MG TAB PO SCH (10:58)
[2021-01-15] MEDS: MAGNESIUM OXIDE 400 MG TAB PO SCH (10:59)
[2021-01-15] MEDS: LACTATED RINGERS 1,000 ML IV SCH ×2 (10:59→21:07)
[2021-01-15] MEDS: MULTIVITAMINS, THERA 1 EACH TAB PO SCH (10:59)
[2021-01-15] MEDS: METOPROLOL TARTRATE 50 MG TAB PO SCH ×2 (10:59→20:58)
[2021-01-15] MEDS: ENOXAPARIN 40 MG/0.4 ML SYRINGE SQ SCH (11:00)
[2021-01-15] MEDS: hydrALAZINE HCL 20 MG/ML 1 ML VIAL IVP PRN ×2 (11:00→21:11)
[2021-01-15 11:09] LABS: African American GFR (CKD) 70.2 (60.0-200.0); Albumin 3.1 g/dL (3.8-4.9); Albumin/Globulin Ratio 1.03 (1.60-3.17); Anion Gap 16.9 mmol/L (4.00-12.00); BUN/Creat Ratio 14.77 Ratio (12.00-20.00); Blood Urea Nitrogen 19.2 mg/dL (9.0-27.0); Calcium 8.8 mg/dL (8.7-10.3); Carbon Dioxide 23.1 mmol/L (21.6-31.8); Non-African American GFR(CKD) 60.6 (60.0-200.0); Potassium 4.3 mmol/L (3.5-5.5); Total Bilirubin 0.6 mg/dL (0.30-1.20); Total Protein 6.1 g/dL (6.2-8.2)
[2021-01-15 12:23] LABS: Glucose,Whole Blood 209 mg/dL (75-99)
--- NOTE | 2021-01-15 14:56 | P.PN ---
Subjective Progress Note Date: 01/15/21 CHIEF COMPLAINT: Lap band port infection HISTORY OF PRESENT ILLNESS: Patient is postop day #1 status post diagnostic laparoscopy, exploratory laparotomy, removal of lap band device and gastrorrhaphy. Patient complaining of abdominal pain. He had gone to long without taking pain medications. He denies any nausea or vomiting. He's having evidence of urinary retention Vang catheter inserted. He feels that he has a yeast infection around his penis Diflucan was added. Afebrile. His white count did increase from 12.1-22.40. Creatinine 1.3 AST 52 ALT 61 Patient seen and examined with Dr. talley PHYSICAL EXAM: VITAL SIGNS: Reviewed. GENERAL: Well-developed in no acute distress. HEENT: No sclera icterus. Extraocular movements grossly intact. Moist buccal mucosa. Head is atraumatic, normocephalic. ABDOMEN: Soft. Nondistended. Incision clean dry and intact. DENA drain was serosanguineous output NEUROLOGIC: Alert and oriented. Cranial nerves II through XII grossly intact. ASSESSMENT: 1. Erosion of lap band and adhesions. Status post diagnostic laparoscopy, exploratory laparotomy, removal of lap band device and gastrorrhaphy on 01/14/2021 2. Infected lap band port status post lap band port removal on 01/07/2021 PLAN: -Keep patient strict nothing by mouth -Midline placement for IV access -Continue pain medication as needed -Continue IV antibiotics -Continue IV fluids -Vang catheter placed for urinary retention -Repeat CBC in a.m. -GI prophylaxis Protonix and DVT prophylaxis Lovenox Physician Conversion Developer note has been reviewed by physician. Signing provider agrees with the documented findings, assessment, and plan of care. Objective - Vital Signs Vital signs: Vital Signs Temp 99 F 01/15/21 13:53 Pulse 59 L 01/15/21 13:53 Resp 20 01/15/21 13:53 BP 161/77 01/15/21 13:53 Pulse Ox 93 L 01/15/21 13:53 Intake & Output 01/14/21 01/15/21 01/15/21 18:59 06:59 18:59 Intake Total 1999 420 Output Total 50 720 Balance 1950 -300 Weight 139.7 kg Intake: IV 1999 420 Lactated Ringers 1,000 ml 320 @ 20 mls/hr IV .Q24H [facility] Rx#:[id number] Piperacillin-Tazobactam 3 100 .375 gm In Sodium Chloride 0.9% 100 ml @ 25 mls/hr IVPB Q8H [facility] Rx#: [id number] Output: Drainage 70 Anterior Abdomen 70 Urine 650 Estimated Blood Loss 50 Other: # Voids 0 1 - Labs CBC & Chem 7: 01/15/21 05:52 01/15/21 05:52 Labs: Abnormal Lab Results - Last 24 Hours (Table) 01/14/21 01/14/21 01/15/21 Range/Units 17:23 20:06 05:52 WBC 22.40 H (4.50-10.00) X 10*3/uL MCHC 30.9 L (32.0-37.0) g/dL Plt Count 544 H (140-440) X 10*3/uL Immature Gran # 0.24 H (0.00-0.04) X 10*3/uL Neutrophils # 19.96 H (1.80-7.70) X 10*3/uL Monocytes # 1.18 H (0.20-1.00) X 10*3/uL Eosinophils # 0.01 L (0.04-0.35) X 10*3/uL Anion Gap (4.00-12.00) mmol/L Glucose (70-110) mg/dL POC Glucose (mg/dL) 168 H 198 H (75-99) mg/dL AST (14-35) U/L ALT (10-49) U/L Total Protein (6.2-8.2) g/dL Albumin (3.8-4.9) g/dL Albumin/Globulin Ratio (1.60-3.17) g/dL 01/15/21 01/15/21 01/15/21 Range/Units 05:52 07:50 12:22 WBC (4.50-10.00) X 10*3/uL MCHC (32.0-37.0) g/dL Plt Count (140-440) X 10*3/uL Immature Gran # (0.00-0.04) X 10*3/uL Neutrophils # (1.80-7.70) X 10*3/uL Monocytes # (0.20-1.00) X 10*3/uL Eosinophils # (0.04-0.35) X 10*3/uL Anion Gap 16.90 H (4.00-12.00) mmol/L Glucose 197 H (70-110) mg/dL POC Glucose (mg/dL) 235 H 209 H (75-99) mg/dL AST 52 H (14-35) U/L ALT 61 H (10-49) U/L Total Protein 6.1 L (6.2-8.2) g/dL Albumin 3.1 L (3.8-4.9) g/dL Albumin/Globulin Ratio 1.03 L (1.60-3.17) g/dL
[2021-01-15] MEDS: PANTOPRAZOLE 40 MG/10 ML VIAL IVP SCH (16:03)
[2021-01-15] MEDS: FLUCONAZOLE IN NACL,ISO-OSM 400 MG in SALINE 1 200ML.BAG IVPB SCH (16:15)
[2021-01-15 17:18] LABS: Glucose,Whole Blood 214 mg/dL (75-99)
[2021-01-15] MEDS ORDERED: FLUCONAZOLE 100 MG TAB PO ONE (18:00)
--- NOTE | 2021-01-15 18:34 | PN ---
PROGRESS NOTE DATE OF SERVICE: 01/15/2021 This 55-year-old gentleman who was admitted with sepsis secondary to lap band infection had surgery yesterday. The patient is also complaining of yeast at the tip of the pin where the catheter is inserted. No chest pain. No palpitations. No fever. PHYSICAL EXAMINATION: Alert and oriented x3. Pulse 61, blood pressure 139/61, respiration 17, temperature 97.9, pulse ox 92% on room air. HEENT: Conjunctivae normal. NECK: No jugular venous distention. CARDIOVASCULAR: S1, S2 muffled. RESPIRATION: Breath sounds diminished at the bases. ABDOMEN: Soft. Status post surgery. Postoperative tenderness. No guarding. No rigidity. LEGS: No edema. No swelling. NERVOUS SYSTEM: No focal deficit. Vang catheter present and some erythema in the scrotum and the penis, which is retracted. LABS: WBC 22, sodium 137, potassium 4.3. Glucose is 235. ASSESSMENT: 1. Sepsis secondary to lap band infection as well as possible erosion, status post diagnostic laparoscopy, exploratory laparotomy as well as removal of the lap band device as well as gastrorrhaphy. 2. Hypertension. 3. Increased white count. 4. Diabetes mellitus, type 2. 5. History of coronary artery disease, coronary artery bypass grafting. 6. Atrial fibrillation history. 7. Hyponatremia, mild. 8. Hyperkalemia, present on admission. 9. Hypoalbuminemia with mild protein-calorie malnutrition. 10.Obesity with body mass index of 44.2. 11.Atrial fibrillation, chronic. 12.History of myocardial infarction. 13.History of loop recorder. 14.History of cardiac ablation. 15.History of coronary artery disease, coronary artery bypass grafting, stent. 16.FULL CODE. RECOMMENDATIONS AND DISCUSSION: I recommend to continue current medications, continue with symptomatic treatment. Otherwise at this time I also recommend adding Diflucan to the current regimen. Continue to monitor. Continue the antibiotics. Guarded prognosis. Further recommendations to follow. I would also recommend repeating a set of cultures. MMODL / IJN: [id number] /
[2021-01-15 20:29] LABS: Glucose,Whole Blood 178 mg/dL (75-99)
[2021-01-16] MEDS: METOPROLOL TARTRATE 5 MG/5 ML VIAL IVP SCH ×4 (00:22→17:48)
[2021-01-16] MEDS: LACTATED RINGERS 1,000 ML IV SCH ×2 (00:23→11:03)
[2021-01-16] MEDS: HYDROmorphone 1 MG/ML 1 ML SYRINGE IVP PRN ×5 (00:24→22:33)
[2021-01-16] MEDS: PIPERACILLIN-TAZOBACTAM 3.375 GM in SODIUM CHLORIDE 0.9% 100 ML IVPB SCH ×3 (01:46→17:49)
[2021-01-16 07:30] LABS: Glucose,Whole Blood 181 mg/dL (75-99)
[2021-01-16 08:22] LABS: ALT 37 U/L (4-49); AST 34 U/L (17-59); African American GFR (CKD) 64 (>60 ml/min/1.73 sqM); Albumin 2.6 g/dL (3.5-5.0); Albumin/Globulin Ratio 0.8; Alkaline Phosphatase 70 U/L (38-126); Anion Gap 9 mmol/L; Blood Urea Nitrogen 24 mg/dL (9-20); Calcium 8.5 mg/dL (8.4-10.2); Carbon Dioxide 30 mmol/L (22-30); Chloride 100 mmol/L (98-107); Globulin 3.1 g/dL; Glucose 160 mg/dL (74-99); Non-African American GFR(CKD) 56 (>60 ml/min/1.73 sqM); Potassium 4.3 mmol/L (3.5-5.1); Sodium 139 mmol/L (137-145); Total Bilirubin 0.6 mg/dL (0.2-1.3); Total Protein 5.7 g/dL (6.3-8.2)
[2021-01-16] MEDS: PANTOPRAZOLE 40 MG/10 ML VIAL IVP SCH (08:35)
[2021-01-16] MEDS: ENOXAPARIN 40 MG/0.4 ML SYRINGE SQ SCH (08:35)
[2021-01-16] MEDS: INSULIN ASPART (NovoLOG) 100 UNIT/ML VIAL SQ SCH ×4 (08:36→21:31)
[2021-01-16 09:33] LABS: Basophils # (A) 0.07 X 10*3/uL (0.00-0.10); Basophils % (A) 0.3 %; Eosinophils # (A) 0.14 X 10*3/uL (0.04-0.35); Eosinophils % (A) 0.6 %; HCT 41.8 % (39.6-50.0); HGB 12.9 g/dL (13.0-17.0); Lymphocytes # (A) 1.31 X 10*3/uL (0.90-5.00); Lymphocytes % (A) 5.8 %; MCH 28.5 pg (27.0-32.0); MCHC 30.9 g/dL (32.0-37.0); MCV 92.3 fL (80.0-97.0); Mean Platelet Volume 10.5 fL (9.5-12.2); Monocytes # (A) 1.81 X 10*3/uL (0.20-1.00); Neutrophils # (A) 18.98 X 10*3/uL (1.80-7.70); Neutrophils % (A) 84.5 %; Platelet Count 465 X 10*3/uL (140-440); RBC 4.53 X 10*6/uL (4.40-5.60); RDW 13.5 % (11.5-14.5)
[2021-01-16] MEDS: DILTIAZEM CD 120 MG CAP.ER.24H PO SCH (10:22)
[2021-01-16] MEDS: SOTALOL 120 MG TAB PO SCH ×2 (10:22→17:23)
[2021-01-16] MEDS: buPROPion XL 150 MG TAB.ER.24H PO SCH (10:22)
[2021-01-16] MEDS: MAGNESIUM OXIDE 400 MG TAB PO SCH (10:22)
[2021-01-16] MEDS: hydrALAZINE HCL 50 MG TAB PO SCH ×2 (10:22→19:32)
[2021-01-16] MEDS: EZETIMIBE 10 MG TAB PO SCH (10:22)
[2021-01-16] MEDS: CHOLECALCIFEROL 25 MCG (1000 IU) TABLET PO SCH (10:22)
[2021-01-16] MEDS: CHLORTHALIDONE 25 MG TAB PO SCH (10:22)
[2021-01-16] MEDS: ATORVASTATIN 20 MG TAB PO SCH (10:22)
[2021-01-16] MEDS: lisinopriL 20 MG TAB PO SCH (10:22)
[2021-01-16] MEDS: ASPIRIN 81 MG PO SCH (10:22)
[2021-01-16] MEDS: MULTIVITAMINS, THERA 1 EACH TAB PO SCH (10:23)
[2021-01-16 12:15] LABS: Glucose,Whole Blood 172 mg/dL (75-99)
[2021-01-16] MEDS ORDERED: FUROSEMIDE 10 MG/ML 2 ML VIAL IV ONE (12:16)
--- NOTE | 2021-01-16 13:43 | XR ---
EXAMINATION TYPE: XR chest 2V DATE OF EXAM: 01/16/2021 COMPARISON: 01/13/2021 TECHNIQUE: PA and lateral views submitted. HISTORY: Shortness of breath FINDINGS: Diffuse interstitial pattern with subsegmental changes at the left lung base. Postoperative change an d cardiac device. No pneumothorax. Heart enlarged. Atherosclerotic change aorta. IMPRESSION: 1. Correlate for CHF.
[2021-01-16] MEDS: SODIUM CHLORIDE 0.9% 1,000 ML IV SCH (14:17)
[2021-01-16] MEDS ORDERED: ACETAMINOPHEN IV (For NPO) 1,000 MG in EMPTY BAG 1 BAG IVPB PRN (14:49)
--- NOTE | 2021-01-16 14:58 | P.PN ---
Subjective Progress Note Date: 01/16/21 CHIEF COMPLAINT: Lap band port infection HISTORY OF PRESENT ILLNESS: Patient is postop day #2 status post diagnostic laparoscopy, exploratory laparotomy, removal of lap band device and gastrorrhaphy. Patient reports his pain is controlled. He denies any nausea or vomiting. Denies any flatus or BM. Patient has oral thrush and per patient yeast around his penis. He is currently on Diflucan. Patient did have a temp of 100.1 this afternoon . Medicine service has ordered blood cultures. WBC is about the same as yesterday at 22.5. Hemoglobin 12.9 creatinine is up 1.40 medicine service has ordered a chest x-ray to correlate for CHF. They have given patient a dose of IV Lasix and adjust IV fluids. Good urine output Patient seen and examined with Dr. talley PHYSICAL EXAM: VITAL SIGNS: Reviewed. GENERAL: Well-developed in no acute distress. HEENT: No sclera icterus. Extraocular movements grossly intact. Moist buccal mucosa. Head is atraumatic, normocephalic. ABDOMEN: Soft. Nondistended. Incision clean dry and intact. DENA drain was serosanguineous output NEUROLOGIC: Alert and oriented. Cranial nerves II through XII grossly intact. ASSESSMENT: 1. Erosion of lap band and adhesions. Status post diagnostic laparoscopy, exploratory laparotomy, removal of lap band device and gastrorrhaphy on 01/14/2021 2. Infected lap band port status post lap band port removal on 01/07/2021 3. Leukocytosis PLAN: -Keep patient strict nothing by mouth until Tuesday -Continue pain medication as needed -Continue IV antibiotics -Continue IV fluids -Vang catheter placed for urinary retention -Repeat CBC and BMP in a.m. -GI prophylaxis Protonix and DVT prophylaxis Lovenox Physician Charge Rn note has been reviewed by physician. Signing provider agrees with the documented findings, assessment, and plan of care. Objective - Vital Signs Vital signs: Vital Signs Temp 100.1 F H 01/16/21 14:00 Pulse 72 01/16/21 14:00 Resp 18 01/16/21 14:00 BP 152/81 01/16/21 14:00 Pulse Ox 92 L 01/16/21 14:00 Intake & Output 01/15/21 01/16/21 01/16/21 18:59 06:59 18:59 Intake Total 1300 Output Total 20 12 600 Balance 1280 -12 -600 Weight 139.7 kg Intake: IV 1300 Fluconazole in NaCl,Iso- 200 Osm 400 mg In Saline 1 200ml.bag @ 100 mls/hr IVPB Q24H [facility] Rx#: [id number] Lactated Ringers 1,000 ml 1000 @ 125 mls/hr IV .Q8H [facility] Rx#:[id number] Piperacillin-Tazobactam 3 100 .375 gm In Sodium Chloride 0.9% 100 ml @ 25 mls/hr IVPB Q8H [facility] Rx#: [id number] Output: Drainage 20 12 Anterior Abdomen 20 12 Urine 600 Emesis 0 Other: Voiding Method Indwelling Catheter Indwelling Catheter # Voids 1 # Bowel Movements 0 - Labs CBC & Chem 7: 01/16/21 05:44 01/16/21 05:44 Labs: Abnormal Lab Results - Last 24 Hours (Table) 01/15/21 01/15/21 01/16/21 Range/Units 17:17 20:28 05:44 WBC 22.50 H (4.50-10.00) X 10*3/uL Hgb 12.9 L (13.0-17.0) g/dL MCHC 30.9 L (32.0-37.0) g/dL Plt Count 465 H (140-440) X 10*3/uL Immature Gran # 0.19 H (0.00-0.04) X 10*3/uL Neutrophils # 18.98 H (1.80-7.70) X 10*3/uL Monocytes # 1.81 H (0.20-1.00) X 10*3/uL BUN (9-20) mg/dL Creatinine (0.66-1.25) mg/dL Glucose (74-99) mg/dL POC Glucose (mg/dL) 214 H 178 H (75-99) mg/dL Total Protein (6.3-8.2) g/dL Albumin (3.5-5.0) g/dL 01/16/21 01/16/21 01/16/21 Range/Units 05:44 07:29 12:14 WBC (4.50-10.00) X 10*3/uL Hgb (13.0-17.0) g/dL MCHC (32.0-37.0) g/dL Plt Count (140-440) X 10*3/uL Immature Gran # (0.00-0.04) X 10*3/uL Neutrophils # (1.80-7.70) X 10*3/uL Monocytes # (0.20-1.00) X 10*3/uL BUN 24 H (9-20) mg/dL Creatinine 1.40 H (0.66-1.25) mg/dL Glucose 160 H (74-99) mg/dL POC Glucose (mg/dL) 181 H 172 H (75-99) mg/dL Total Protein 5.7 L (6.3-8.2) g/dL Albumin 2.6 L (3.5-5.0) g/dL Microbiology - Last 24 Hours (Table) 01/15/21 Unknown Urine Culture - Preliminary Urine,Catheterized
[2021-01-16] MEDS ORDERED: FLUCONAZOLE 100 MG TAB PO ONE (16:00)
[2021-01-16] MEDS ORDERED: FLUCONAZOLE IN NACL,ISO-OSM 100 MG in SALINE 1 50ML.BAG IVPB SCH (16:00)
--- NOTE | 2021-01-16 17:11 | PN ---
PROGRESS NOTE DATE OF SERVICE: 01/16/2021 This 55 -year-old gentleman who was admitted with sepsis secondary to lap band infection had surgery yesterday. The most recent chest x-ray showed some possibly some fluid overload at this time. No chest pain. No palpitations. No fever. The patient running fever also. PAST MEDICAL HISTORY: Reviewed. REVIEW OF SYSTEMS: Cardiovascular: No angina or palpitations. Respiratory: As mentioned earlier. GI: As mentioned earlier. : No dysuria. Nervous system: No numbness. No weakness. CURRENT MEDICATIONS: Reviewed and include: Tylenol, Lipitor, Wellbutrin, vitamin B12, Cardizem, Zetia, fluconazole, Dilaudid. Dose and other medications reviewed. PHYSICAL EXAMINATION: Patient is alert and oriented times three. Pulse 72, blood pressure 158/81, respiration 18, temperature 100.1, pulse ox 92% on 2 L. HEENT: Conjunctivae normal. Neck: No jugular venous distention. Cardiovascular: S1, S2 muffled. Respiratory system: Breath sounds diminished at the bases. A few scattered rhonchi and crackles. Abdomen: Soft, obese, nontender. Legs are no edema. No swelling. Nervous system: No focal deficits. LAB STUDIES: WBC 20.5 and sodium 130, potassium 4.2. Creatinine is 1.40. ASSESSMENT: 1. Sepsis secondary to lap band infection as well as possible erosion status post diagnostic laparoscopy, exploratory laparotomy as well as removal of the lap band device and gastrography. 2. Hypertension. 3. Increased WBC. 4. Diabetes mellitus type 2. 5. History of coronary artery disease. coronary artery bypass grafting. 6. Atrial fibrillation history. 7. Hyponatremia, mild. 8. Hyperkalemia, present on admission. 9. Hypoalbuminemia with mild protein calorie malnutrition. 10.Obesity with body mass index of 44.2. 11.Atrial fibrillation, chronic. 12.History of myocardial infarction. 13.History of loop recorder. 14.History of cardiac ablation. 15.History of coronary artery disease, coronary artery bypass grafting/stent. 16.FULL CODE. RECOMMENDATIONS AND DISCUSSION: I recommend to continue current medications, symptomatic treatment. Continue with antibiotics. I would also recommend Lasix. Recommend a set of cultures. Infectious Disease evaluation. Guarded prognosis because of multiple complex medical issues. Further recommendations to follow. MMODL / IJN: [id number] / JOAN
[2021-01-16 17:17] LABS: Glucose,Whole Blood 168 mg/dL (75-99)
[2021-01-16 20:42] LABS: Glucose,Whole Blood 145 mg/dL (75-99)
--- NOTE | 2021-01-17 | P.CONS ---
History of Present Illness - Reason for Consult Consult date: 01/16/21 sepsis Requesting physician: Toshia Lynn - Chief Complaint Abd pain and fever x 1 day - History of Present Illness History of present illness : Patient is 55-year-old male with a past medical history sniffing for lap band surgery patient has been having abdominal pain apparently the patient did have a CT scan done outpatient setting which issues if you've any changes at the LAP-BAND system patient has been admitted to hospital on January 06, 2021 and the patient did have a fever development of 101.6 degree form height patient also have white count of 20,000 patient has been admitted to the surgical service was taken to the OR on 01/07/2021 in this patient who did have removal of the lab band port on 01/17/2021 the pocket was cultured and the patient has been treated empirically with Zosyn the patient did have blood culture as well as the membrane culture which has been negative so far patient did have a repeat CT of abdominal pelvis completed on the 12/22/2020 patchy stranding and fluid around the catheter in the upper abdominal quadrant suggestive of infection this extends from the abdominal wall to the greater curvature of the stomach there is dehiscence at the surgical site and the removal of the pump and the subcutaneous tissue patient was subsequently taken back to the OR on January 12, 2021 in this patient who did have an EGD with a postoperative diagnosis of erosion of the (on 1012 patient did have a diagnostic laparoscopy exploratory reprogramming with removal of the LAP-BAND device and gastrorrhaphy the patient did spike a fever 100.1 degree form height this afternoon the patient did have a white count around 22.50 patient did have blood culture obtained last evening which are negative so far urine has been negative infectious disease was consulted today after the patient has been hospital for almost 10 days with concern for sepsis patient complaining of not feeling that good has been complaining of pain to the upper abdominal area more of a dull aching 4-5 out of 10 and no radiation, slight nausea but no vomiting denies having any diarrhea no pain no swelling at the IV site Review of system: CONSTITUTIONAL: Positive for weakness along with the fever. EYES: No complaint. ENT: No complaint. RESPIRATORY: No complaint. CARDIOVASCULAR: No complaint. GENITOURINARY: No complaint. GASTROINTESTINAL: As per history of present illness MUSCULOSKELETAL: No complaint. INTEGUMENTARY: No complaint. PSYCHOLOGIC: No complaint. ENDOCRINE: No complaint. NEUROLOGIC: No complaint. Past medical history : Reviewed, documented below Past surgical history : Reviewed, documented below Social history: Reviewed, documented below Medications: Reviewed, as documented below EXAMINATION: Vital sigans= Reviewed and documented below GENERAL DESCRIPTION: Middle-aged male up in the chair, no distress. No tachypnea or accessory muscle of respiration use. HEENT: Shows Pallor , no scleral icterus. Oral mucous membrane is dry. NECK: Trachea central, no thyromegaly. LUNGS: Unlabored breathing. Clear to auscultation anteriorly. No wheeze or crackle. HEART: S1, S2, regular rate and rhythm. ABDOMEN: Soft, midline and right upper quadrant incisions are currently intact DENA drain with mostly bloodstained secretion no purulence EXTREMITIES: No edema of feet. SKIN: No rash, no masses palpable. NEUROLOGICAL: The patient is awake, alert, oriented x3, mood and affect normal. LABS AND RADIOLOGY: Reviewed results see below Assessment : Patient who did have a low-grade fever and significant elevated white count in this patient has been admitted to hospital with sepsis related to his left hand system infection in this patient status post removal of the lap band followed by exploratory laparotomy removal of the lap band device and gastrorrhaphy that was completed 2 days ago now with worsening of the white count could be postoperative or related to intra-abdominal source is currently no other obvious focus of infection chest x-ray was made CHF urine has been negative and no evidence of any cellulitis at his IV site Plan: 1-Zosyn 3.375 g every 12 to continue 2-adjust the dose of Diflucan to 200 mg daily 3-gentle IV fluid 4-repeat the CBC and CRP tomorrow if still elevated or the patient spike any further fever would recommend obtaining a CT abdominal pelvis We will follow on clinical condition and cultures to further adjust medication if needed Thank you for this consultation we will follow the patient along with you Past Medical History Past Medical History: Atrial Fibrillation, Chest Pain / Angina, Diabetes Mellitus, Hypertension, Myocardial Infarction ([place]) Additional Past Medical History / Comment(s): Loop recorder Last Myocardial Infarction Date:: 2003 History of Any Multi-Drug Resistant Organisms: None Reported Past Surgical History: Ablation, Coronary Bypass/CABG, Heart Catheterization, Heart Catheterization With Stent Additional Past Surgical History / Comment(s): Lap band Past Anesthesia/Blood Transfusion Reactions: No Reported Reaction Date of Last Stent Placement:: 1989 Past Psychological History: No Psychological Hx Reported Smoking Status: Never smoker Past Alcohol Use History: None Reported Past Drug Use History: None Reported Medications and Allergies Home Medications Medication Instructions Recorded Confirmed Type Apixaban [Eliquis] 5 mg PO BID 01/06/21 01/07/21 History Aspirin EC [Ecotrin Low Dose] 81 mg PO DAILY 01/06/21 01/07/21 History Chlorthalidone [Hygroton] 25 mg PO DAILY 01/06/21 01/06/21 History Diltiazem HCl [Diltiazem HCl 24Hr 240 mg PO DAILY 01/06/21 01/07/21 History ER] Ezetimibe [Zetia] 10 mg PO DAILY 01/06/21 01/07/21 History Insulin Glargine,Hum.rec.anlog 30 - 40 unit SQ QAM 01/06/21 01/07/21 History [Lantus Solostar Pen] Insulin Glargine,Hum.rec.anlog 80 unit SQ HS 01/06/21 01/07/21 History [Lantus Solostar Pen] Krill Oil 750mg 1 tab PO BID 01/06/21 01/07/21 History Magnesium Chloride [Mag64] 64 mg PO DAILY 01/06/21 01/07/21 History Metoprolol Tartrate [Lopressor] 50 mg PO BID 01/06/21 01/07/21 History Multivitamins, Thera [Multivitamin 1 tab PO DAILY 01/06/21 01/07/21 History (formulary)] Potassium Chloride [K-Tab ER] 20 meq PO DAILY 01/06/21 01/07/21 History Sotalol HCl [Sotalol] 240 mg PO BID-W/MEALS 01/06/21 01/07/21 History hydrALAZINE HCL 50 mg PO BID 01/06/21 01/07/21 History lisinopriL 20 mg PO BID 01/06/21 01/07/21 History Atorvastatin [Lipitor] 20 mg PO DAILY 01/07/21 01/07/21 History Cholecalciferol [Vitamin D3 (25 25 mcg PO DAILY 01/07/21 01/07/21 History Mcg = 1000 Iu)] buPROPion XL [Wellbutrin XL] 150 mg PO DAILY 01/07/21 01/07/21 History metFORMIN HCL 500 mg PO BID-W/MEALS 01/07/21 01/07/21 History Allergies Allergy/AdvReac Type Severity Reaction Status Date / Time No Known Allergies Allergy Verified 01/06/21 23:59 Physical Exam Vitals: Vital Signs Temp Pulse Pulse Resp BP BP Pulse Ox 01/16/21 14:00 100.1 F H 72 18 152/81 92 L 01/16/21 12:25 75 166/77 01/16/21 08:00 98.6 F 59 L 71 18 148/79 92 L 01/16/21 00:59 99.7 F H 64 16 147/72 94 L 01/15/21 20:15 98.6 F 60 16 162/73 96 Intake and Output 01/16/21 01/16/21 01/16/21 06:59 14:59 22:59 Output Total 12 600 Balance -12 -600 Output: Drainage 12 Anterior Abdomen 12 Urine 600 Emesis 0 Other: Voiding Method Indwelling Catheter # Bowel Movements 0 Weight 139.7 kg Results CBC & Chem 7: 01/16/21 05:44 01/16/21 05:44 Labs: Abnormal Lab Results - Last 24 Hours (Table) 01/15/21 01/15/21 01/16/21 Range/Units 17:17 20:28 05:44 WBC 22.50 H (4.50-10.00) X 10*3/uL Hgb 12.9 L (13.0-17.0) g/dL MCHC 30.9 L (32.0-37.0) g/dL Plt Count 465 H (140-440) X 10*3/uL Immature Gran # 0.19 H (0.00-0.04) X 10*3/uL Neutrophils # 18.98 H (1.80-7.70) X 10*3/uL Monocytes # 1.81 H (0.20-1.00) X 10*3/uL BUN (9-20) mg/dL Creatinine (0.66-1.25) mg/dL Glucose (74-99) mg/dL POC Glucose (mg/dL) 214 H 178 H (75-99) mg/dL Total Protein (6.3-8.2) g/dL Albumin (3.5-5.0) g/dL 01/16/21 01/16/21 01/16/21 Range/Units 05:44 07:29 12:14 WBC (4.50-10.00) X 10*3/uL Hgb (13.0-17.0) g/dL MCHC (32.0-37.0) g/dL Plt Count (140-440) X 10*3/uL Immature Gran # (0.00-0.04) X 10*3/uL Neutrophils # (1.80-7.70) X 10*3/uL Monocytes # (0.20-1.00) X 10*3/uL BUN 24 H (9-20) mg/dL Creatinine 1.40 H (0.66-1.25) mg/dL Glucose 160 H (74-99) mg/dL POC Glucose (mg/dL) 181 H 172 H (75-99) mg/dL Total Protein 5.7 L (6.3-8.2) g/dL Albumin 2.6 L (3.5-5.0) g/dL Microbiology - Last 24 Hours (Table) 01/15/21 Unknown Urine Culture - Preliminary Urine,Catheterized
[2021-01-17] MEDS: PIPERACILLIN-TAZOBACTAM 3.375 GM in SODIUM CHLORIDE 0.9% 100 ML IVPB SCH ×3 (00:43→20:49)
[2021-01-17] MEDS: METOPROLOL TARTRATE 5 MG/5 ML VIAL IVP SCH ×5 (00:44→23:34)
[2021-01-17] MEDS: SODIUM CHLORIDE 0.9% 1,000 ML IV SCH ×2 (00:45→21:59)
[2021-01-17] MEDS: HYDROmorphone 1 MG/ML 1 ML SYRINGE IVP PRN ×4 (05:04→23:33)
[2021-01-17 07:48] LABS: Glucose,Whole Blood 118 mg/dL (75-99)
[2021-01-17] MEDS: INSULIN ASPART (NovoLOG) 100 UNIT/ML VIAL SQ SCH ×4 (08:16→20:56)
[2021-01-17] MEDS: SOTALOL 120 MG TAB PO SCH ×2 (08:31→17:04)
[2021-01-17] MEDS: ATORVASTATIN 20 MG TAB PO SCH (08:31)
[2021-01-17] MEDS: ASPIRIN 81 MG PO SCH (08:31)
[2021-01-17] MEDS: DILTIAZEM CD 120 MG CAP.ER.24H PO SCH (08:32)
[2021-01-17] MEDS: hydrALAZINE HCL 50 MG TAB PO SCH ×2 (08:32→20:37)
[2021-01-17] MEDS: MAGNESIUM OXIDE 400 MG TAB PO SCH (08:32)
[2021-01-17] MEDS: buPROPion XL 150 MG TAB.ER.24H PO SCH (08:32)
[2021-01-17] MEDS: CHLORTHALIDONE 25 MG TAB PO SCH (08:32)
[2021-01-17] MEDS: lisinopriL 20 MG TAB PO SCH (08:32)
[2021-01-17] MEDS: MULTIVITAMINS, THERA 1 EACH TAB PO SCH (08:32)
[2021-01-17] MEDS: CHOLECALCIFEROL 25 MCG (1000 IU) TABLET PO SCH (08:32)
[2021-01-17] MEDS: EZETIMIBE 10 MG TAB PO SCH (08:32)
[2021-01-17] MEDS: hydrALAZINE HCL 20 MG/ML 1 ML VIAL IVP PRN (08:40)
[2021-01-17] MEDS: PANTOPRAZOLE 40 MG/10 ML VIAL IVP SCH (08:42)
[2021-01-17] MEDS: ENOXAPARIN 40 MG/0.4 ML SYRINGE SQ SCH (08:42)
[2021-01-17] MEDS ORDERED: ANIDULAFUNGIN 200 MG in SODIUM CHLORIDE 0.9% 200 ML IVPB ONE (09:00)
[2021-01-17] MEDS ORDERED: FLUCONAZOLE 100 MG TAB PO SCH (09:00)
[2021-01-17 09:10] LABS: Basophils # (A) 0.07 X 10*3/uL (0.00-0.10); Basophils % (A) 0.4 %; Eosinophils # (A) 0.19 X 10*3/uL (0.04-0.35); Eosinophils % (A) 1.2 %; HCT 40.5 % (39.6-50.0); HGB 12.7 g/dL (13.0-17.0); Lymphocytes # (A) 0.96 X 10*3/uL (0.90-5.00); Lymphocytes % (A) 5.9 %; MCH 29.3 pg (27.0-32.0); MCHC 31.4 g/dL (32.0-37.0); MCV 93.3 fL (80.0-97.0); Mean Platelet Volume 10.4 fL (9.5-12.2); Monocytes # (A) 1.23 X 10*3/uL (0.20-1.00); Monocytes % (A) 7.5 %; Neutrophils # (A) 13.78 X 10*3/uL (1.80-7.70); Neutrophils % (A) 84.3 %; Platelet Count 433 X 10*3/uL (140-440); RBC 4.34 X 10*6/uL (4.40-5.60); RDW 13.6 % (11.5-14.5); WBC 16.35 X 10*3/uL (4.50-10.00)
[2021-01-17 09:47] LABS: African American GFR (CKD) 85.9 (60.0-200.0); Anion Gap 14.7 mmol/L (4.00-12.00); BUN/Creat Ratio 19.09 Ratio (12.00-20.00); Calcium 8.4 mg/dL (8.7-10.3); Carbon Dioxide 27.3 mmol/L (21.6-31.8); Non-African American GFR(CKD) 74.1 (60.0-200.0); Potassium 3.9 mmol/L (3.5-5.5)
--- NOTE | 2021-01-17 11:00 | ECHOF ---
Referral Reason:chf MEASUREMENTS -------- HEIGHT: 177.8 cm WEIGHT: 139.3 kg BP: 150/77 IVSd: 1.5 cm (0.6 - 1.1) LVIDd: 5.4 cm (3.9 - 5.3) LVPWd: 1.6 cm (0.6 - 1.1) IVSs: 1.9 cm LVIDs: 3.4 cm LVPWs: 2.0 cm LAESV Index (A-L): 28.71 ml/m Ao Diam: 3.6 cm (2.0 - 3.7) AV Cusp: 2.6 cm (1.5 - 2.6) LA Diam: 5.2 cm (2.7 - 3.8) MV EXCURSION: 27.027 mm (> 18.000) MV EF SLOPE: 104 mm/s (70 - 150) EPSS: 1.4 cm RAP: 5.00 mmHg RVSP: 24.76 mmHg FINDINGS -------- Sinus rhythm. This was a technically difficult study with suboptimal views. The left ventricular size is normal. There is moderate concentric left ventricular hypertrophy. O verall left ventricular systolic function is normal with, an EF between 55 - 60 %. Septal wall jody on is delayed and consistent with prior cardiac surgery. The RV was not well visualized. Normal LA size by volume 22+/-6 ml/m2. The right atrium was not well visualized. 5.0mg of Lumason was utilized for enhancement of images Interatrial and interventricular septum intact. Trace to mild aortic regurgitation. There is no evidence of aortic stenosis. Mild mitral regurgitation is present. Mild tricuspid regurgitation present. There is no evidence of pulmonary hypertension. The right v entricular systolic pressure, as measured by Doppler, is 24.76mmHg. The aortic root size is normal. IVC Not well visulized. There is no pericardial effusion. CONCLUSIONS -------- 1. The left ventricular size is normal. 2. There is moderate concentric left ventricular hypertrophy. 3. Overall left ventricular systolic function is normal with, an EF between 55 - 60 %. 4. Trace to mild aortic regurgitation. 5. Mild mitral regurgitation is present. 6. Mild tricuspid regurgitation present. TEST AND BALANCE ENGINEER: Love Whittaker [facility]
[2021-01-17 12:21] LABS: Glucose,Whole Blood 137 mg/dL (75-99)
--- NOTE | 2021-01-17 15:58 | P.PN ---
Subjective Progress Note Date: 01/17/21 CHIEF COMPLAINT: Complications from adjustable gastric band HISTORY OF PRESENT ILLNESS: The patient is a 55-year-old male status post open repair of gastric erosion due to adjustable gastric band. He is sitting up in the chair. He reports soreness but tolerable. Family at bedside. He is eager to drink water. He is NPO expect mouth swabs. ROS: No reports of nausea and vomiting. No fevers or chills. No new chest pain. No productive sputum. Morbid obesity due to excess calories, BMI 44.2 PHYSICAL EXAM: VITAL SIGNS: Reviewed CONSTITUTIONAL: Well developed and in no acute distress. EYES: Conjuctivae without sclera icterus. Extraocular movements grossly intact. HEAD, EARS, NOSE, THROAT: Moist buccal mucosa. Head is atraumatic, normocephalic. Hears conversational speech. No nasal drainage. NECK: No gross thyroidomegaly. No jugular venous distention. RESPIRATORY: Non-labored respirations and equal bilateral excursions. CARDIOVASCULAR: Palpable 2+ radial pulses. ABDOMEN: Protuberant. No peritonitis. MUSCULOSKELETAL: No gross deformity of the lower extremities noted. No clubbing. No cyanosis. SKIN: Good skin turgor. Well perfused. NEUROLOGIC: Cranial nerves II through XII grossly intact. No focal or lateralizing signs. PSYCH: Appropriate affect. Alert and oriented to person, place and time. CLINICAL LABS: Reviewed. Leukocytosis with white blood cell count decreasing from 22,000-16,000. Hemoglobin stable 12.7-12.9. ASSESSMENT: 1. Gastric erosion due to adjustable gastric band PLAN: 1. Continue IV antibiotics 2. May need antifungal due to gastric erosion 3. Continue hospitalization Objective - Vital Signs Vital signs: Vital Signs Temp 98.7 F 01/17/21 08:00 Pulse 73 01/17/21 10:35 Resp 16 01/17/21 08:00 BP 170/82 01/17/21 10:35 Pulse Ox 96 01/17/21 10:35 Intake & Output 01/16/21 01/17/21 01/17/21 18:59 06:59 18:59 Output Total 1160 530 Balance -1160 -530 Weight 139.7 kg Output: Drainage 10 5 Anterior Abdomen 10 5 Urine 1150 525 Other: Voiding Method Indwelling Catheter Indwelling Catheter Indwelling Catheter - Labs CBC & Chem 7: 01/17/21 06:02 01/17/21 06:02 Labs: Abnormal Lab Results - Last 24 Hours (Table) 01/16/21 01/16/21 01/17/21 Range/Units 17:16 20:40 06:02 WBC 16.35 H (4.50-10.00) X 10*3/uL RBC 4.34 L (4.40-5.60) X 10*6/uL Hgb 12.7 L (13.0-17.0) g/dL MCHC 31.4 L (32.0-37.0) g/dL Immature Gran # 0.12 H (0.00-0.04) X 10*3/uL Neutrophils # 13.78 H (1.80-7.70) X 10*3/uL Monocytes # 1.23 H (0.20-1.00) X 10*3/uL Anion Gap (4.00-12.00) mmol/L Glucose (70-110) mg/dL POC Glucose (mg/dL) 168 H 145 H (75-99) mg/dL Calcium (8.7-10.3) mg/dL 01/17/21 01/17/21 01/17/21 Range/Units 06:02 07:47 12:19 WBC (4.50-10.00) X 10*3/uL RBC (4.40-5.60) X 10*6/uL Hgb (13.0-17.0) g/dL MCHC (32.0-37.0) g/dL Immature Gran # (0.00-0.04) X 10*3/uL Neutrophils # (1.80-7.70) X 10*3/uL Monocytes # (0.20-1.00) X 10*3/uL Anion Gap 14.70 H (4.00-12.00) mmol/L Glucose 132 H (70-110) mg/dL POC Glucose (mg/dL) 118 H 137 H (75-99) mg/dL Calcium 8.4 L (8.7-10.3) mg/dL Microbiology - Last 24 Hours (Table) 01/15/21 18:11 Blood Culture - Preliminary Blood No Growth after 24 hours 01/15/21 Unknown Urine Culture - Final Urine,Catheterized Assessment and Plan (1) Complication of gastric band procedure Current Visit: Yes Status: Acute Code(s): K95.09 - OTHER COMPLICATIONS OF GASTRIC BAND PROCEDURE SNOMED Code(s): 008953433658838 (2) Abdominal infection Current Visit: Yes Status: Acute Code(s): K65.9 - PERITONITIS, UNSPECIFIED SNOMED Code(s): 889795717 (3) Abdominal pain Current Visit: Yes Status: Acute Code(s): R10.9 - UNSPECIFIED ABDOMINAL PAIN SNOMED Code(s): 76607281 (4) History of laparoscopic adjustable gastric banding Current Visit: Yes Status: Acute Code(s): Z98.84 - BARIATRIC SURGERY STATUS SNOMED Code(s): 760022783 (5) Sepsis Current Visit: Yes Status: Acute Code(s): A41.9 - SEPSIS, UNSPECIFIED ORGANISM SNOMED Code(s): 44792953
[2021-01-17 16:51] LABS: Glucose,Whole Blood 147 mg/dL (75-99)
--- NOTE | 2021-01-17 18:39 | PN ---
PROGRESS NOTE DATE OF SERVICE: 01/17/2021 REASON FOR FOLLOWUP: Fever. INTERVAL HISTORY: The patient is afebrile today. He is feeling slightly better today, breathing comfortably. Still complaining of abdominal pain and discomfort, but no worsening. Some nausea but no vomiting. PHYSICAL EXAMINATION: Blood pressure 139/76, pulse of 79, temperature 98.7. He is 93% on room air. General description is a middle-aged male up in the bed in no distress. RESPIRATORY SYSTEM: Unlabored breathing. Decreased breath sounds at the bases. No wheeze. HEART: S1, S2. Regular rate and rhythm. ABDOMEN: Soft. Mildly tender. No guarding or rigidity. LABS: Hemoglobin is 12, white count down to 16.35, creatinine 1.1. Blood and urine have been negative so far. DIAGNOSTIC IMPRESSION AND PLAN: Patient with low-grade fever in this patient who did have extensive abdominal surgery with removal of the lap band device and gastrography. The patient's white count and fever are responding to the addition of the Eraxis; to continue along with Zosyn and monitor his clinical course closely. Continue supportive care. MMODL / IJN: [id number] /
--- NOTE | 2021-01-17 20:48 | PN ---
PROGRESS NOTE DATE OF SERVICE: 01/17/2021 This 55-year-old gentleman admitted with lap band removal also had surgery yesterday. The patient was running a fever. The patient is on broad-spectrum IV antibiotics. The white count is trending slightly downward. Cultures are negative so far. No chest pain. No palpitations. No fever. PHYSICAL EXAMINATION: Alert and oriented x3. Pulse 79, blood pressure 139/76, respiration 16, temperature 98.7, pulse ox 93% on room air. HEENT: Conjunctivae normal. NECK: No jugular venous distention. CARDIOVASCULAR: S1, S2 muffled. RESPIRATION: Breath sounds diminished at the bases. A few scattered rhonchi. ABDOMEN: Soft, obese. Status post surgery. LEGS: No edema. No swelling. NERVOUS SYSTEM: No focal deficit. LABS: WBC 16 and glucose is noted. ASSESSMENT: 1. Sepsis secondary to lap band infection as well as possible erosion, status post diagnostic laparoscopy, exploratory laparotomy as well as removal of the lap band device and gastrography. 2. Hypertension. 3. Increased white count. 4. Diabetes mellitus, type 2. 5. History of coronary artery disease, coronary artery bypass grafting. 6. History of atrial fibrillation. 7. Hyponatremia, mild. 8. Hyperkalemia, present on admission. 9. Hypoalbuminemia with mild protein-calorie malnutrition. 10.Obesity with body mass index of 44.2. 11.Atrial fibrillation, chronic. 12.History of myocardial infarction. 13.History of loop recorder. 14.History of cardiac ablation. 15.History of coronary artery disease, coronary artery bypass grafting, stent. 16.FULL CODE. RECOMMENDATIONS AND DISCUSSION: I recommend to continue current medications, continue with symptomatic treatment. Otherwise at this time I would recommend repeat labs. Continue the antibiotics. Otherwise, closely follow with Surgery and Infectious Disease. The patient is improving slowly. Further recommendations to follow. MMODL / IJN: [id number] /
[2021-01-17 20:57] LABS: Glucose,Whole Blood 136 mg/dL (75-99)
[2021-01-18] MEDS: HYDROmorphone 1 MG/ML 1 ML SYRINGE IVP PRN ×4 (02:40→20:38)
[2021-01-18] MEDS: SODIUM CHLORIDE 0.9% 1,000 ML IV SCH (05:33)
[2021-01-18] MEDS: PIPERACILLIN-TAZOBACTAM 3.375 GM in SODIUM CHLORIDE 0.9% 100 ML IVPB SCH ×3 (05:34→20:53)
[2021-01-18] MEDS: METOPROLOL TARTRATE 5 MG/5 ML VIAL IVP SCH ×3 (05:34→20:39)
[2021-01-18 08:19] LABS: Glucose,Whole Blood 141 mg/dL (75-99)
[2021-01-18] MEDS: SOTALOL 120 MG TAB PO SCH ×2 (08:41→16:51)
[2021-01-18] MEDS: INSULIN ASPART (NovoLOG) 100 UNIT/ML VIAL SQ SCH ×4 (08:41→20:37)
[2021-01-18] MEDS: CHLORTHALIDONE 25 MG TAB PO SCH (08:42)
[2021-01-18] MEDS: ATORVASTATIN 20 MG TAB PO SCH (08:42)
[2021-01-18] MEDS: DILTIAZEM CD 120 MG CAP.ER.24H PO SCH (08:42)
[2021-01-18] MEDS: ASPIRIN 81 MG PO SCH (08:42)
[2021-01-18] MEDS: CHOLECALCIFEROL 25 MCG (1000 IU) TABLET PO SCH (08:42)
[2021-01-18] MEDS: buPROPion XL 150 MG TAB.ER.24H PO SCH (08:42)
[2021-01-18] MEDS: MULTIVITAMINS, THERA 1 EACH TAB PO SCH (08:43)
[2021-01-18] MEDS: MAGNESIUM OXIDE 400 MG TAB PO SCH (08:43)
[2021-01-18] MEDS: PANTOPRAZOLE 40 MG/10 ML VIAL IVP SCH (08:43)
[2021-01-18] MEDS: lisinopriL 20 MG TAB PO SCH (08:43)
[2021-01-18] MEDS: EZETIMIBE 10 MG TAB PO SCH (08:43)
[2021-01-18] MEDS: ANIDULAFUNGIN 100 MG in SODIUM CHLORIDE 0.9% 100 ML IVPB SCH ×2 (08:43→10:15)
[2021-01-18] MEDS: ENOXAPARIN 40 MG/0.4 ML SYRINGE SQ SCH (08:43)
[2021-01-18] MEDS: hydrALAZINE HCL 50 MG TAB PO SCH ×2 (08:43→20:33)
[2021-01-18 09:42] LABS: Basophils # (A) 0.09 X 10*3/uL (0.00-0.10); Basophils % (A) 0.6 %; Eosinophils # (A) 0.15 X 10*3/uL (0.04-0.35); HGB 12.7 g/dL (13.0-17.0); Lymphocytes # (A) 1.11 X 10*3/uL (0.90-5.00); Lymphocytes % (A) 7.4 %; MCH 28.9 pg (27.0-32.0); MCV 93.2 fL (80.0-97.0); Mean Platelet Volume 10.5 fL (9.5-12.2); Monocytes # (A) 1.51 X 10*3/uL (0.20-1.00); Neutrophils # (A) 12.11 X 10*3/uL (1.80-7.70); Neutrophils % (A) 80.3 %; Platelet Count 436 X 10*3/uL (140-440); RDW 13.5 % (11.5-14.5); WBC 15.08 X 10*3/uL (4.50-10.00)
[2021-01-18 10:48] LABS: African American GFR (CKD) 85.9 (60.0-200.0); Anion Gap 12.6 mmol/L (4.00-12.00); Blood Urea Nitrogen 19.8 mg/dL (9.0-27.0); Calcium 8.2 mg/dL (8.7-10.3); Carbon Dioxide 27.4 mmol/L (21.6-31.8); Non-African American GFR(CKD) 74.1 (60.0-200.0); Potassium 3.9 mmol/L (3.5-5.5)
[2021-01-18 12:31] LABS: Glucose,Whole Blood 142 mg/dL (75-99)
--- NOTE | 2021-01-18 12:34 | P.PN ---
Subjective Progress Note Date: 01/18/21 CHIEF COMPLAINT: Complications from adjustable gastric band HISTORY OF PRESENT ILLNESS: The patient is a 55-year-old male status post open repair of gastric erosion due to adjustable gastric band. He is sitting up in the chair. Mother is at bedside. His pain is tolerable. No new issues. ROS: No reports of nausea and vomiting. No fevers or chills. No new chest pain. No productive sputum. Morbid obesity due to excess calories, BMI 44.2 PHYSICAL EXAM: VITAL SIGNS: Reviewed CONSTITUTIONAL: Well developed and in no acute distress. EYES: Conjuctivae without sclera icterus. Extraocular movements grossly intact. HEAD, EARS, NOSE, THROAT: Moist buccal mucosa. Head is atraumatic, normoce phalic. Hears conversational speech. No nasal drainage. NECK: No gross thyroidomegaly. No jugular venous distention. RESPIRATORY: Non-labored respirations and equal bilateral excursions. CARDIOVASCULAR: Palpable 2+ radial pulses. ABDOMEN: Protuberant. No peritonitis. MUSCULOSKELETAL: No gross deformity of the lower extremities noted. No clubbing. No cyanosis. SKIN: Good skin turgor. Well perfused. NEUROLOGIC: Cranial nerves II through XII grossly intact. No focal or lateralizing signs. PSYCH: Appropriate affect. Alert and oriented to person, place and time. CLINICAL LABS: Reviewed. Hemoglobin is unchanged at 12.7. White blood cell count down to 15 from 16 with leukocytosis. ASSESSMENT: 1. Gastric erosion due to adjustable gastric band PLAN: 1. Patient is eager to have some tender drink. Nothing by mouth until tomorrow described. 2. Continue IV antibiotics Objective - Vital Signs Vital signs: Vital Signs Temp 98.8 F 01/18/21 08:00 Pulse 72 01/18/21 08:00 Resp 16 01/18/21 08:00 BP 159/87 01/18/21 08:00 Pulse Ox 95 01/18/21 08:00 Intake & Output 01/17/21 01/18/21 01/18/21 18:59 06:59 18:59 Output Total 5 752 Balance -5 -752 Output: Drainage 5 2 Anterior Abdomen 5 2 Urine 750 Other: Voiding Method Indwelling Catheter Indwelling Catheter Indwelling Catheter - Labs CBC & Chem 7: 01/18/21 05:35 01/18/21 05:35 Labs: Abnormal Lab Results - Last 24 Hours (Table) 01/17/21 01/17/21 01/18/21 Range/Units 16:49 20:55 05:35 WBC 15.08 H (4.50-10.00) X 10*3/uL Hgb 12.7 L (13.0-17.0) g/dL MCHC 31.0 L (32.0-37.0) g/dL Immature Gran # 0.11 H (0.00-0.04) X 10*3/uL Neutrophils # 12.11 H (1.80-7.70) X 10*3/uL Monocytes # 1.51 H (0.20-1.00) X 10*3/uL Anion Gap (4.00-12.00) mmol/L Glucose (70-110) mg/dL POC Glucose (mg/dL) 147 H 136 H (75-99) mg/dL Calcium (8.7-10.3) mg/dL 01/18/21 01/18/21 01/18/21 Range/Units 05:35 08:18 12:29 WBC (4.50-10.00) X 10*3/uL Hgb (13.0-17.0) g/dL MCHC (32.0-37.0) g/dL Immature Gran # (0.00-0.04) X 10*3/uL Neutrophils # (1.80-7.70) X 10*3/uL Monocytes # (0.20-1.00) X 10*3/uL Anion Gap 12.60 H (4.00-12.00) mmol/L Glucose 141 H (70-110) mg/dL POC Glucose (mg/dL) 141 H 142 H (75-99) mg/dL Calcium 8.2 L (8.7-10.3) mg/dL Microbiology - Last 24 Hours (Table) 01/15/21 18:11 Blood Culture - Preliminary Blood No Growth after 48 hours Assessment and Plan (1) Complication of gastric band procedure Current Visit: Yes Status: Acute Code(s): K95.09 - OTHER COMPLICATIONS OF GASTRIC BAND PROCEDURE SNOMED Code(s): 700275217113881 (2) Abdominal infection Current Visit: Yes Status: Acute Code(s): K65.9 - PERITONITIS, UNSPECIFIED SNOMED Code(s): 043954075 (3) Abdominal pain Current Visit: Yes Status: Acute Code(s): R10.9 - UNSPECIFIED ABDOMINAL PAIN SNOMED Code(s): 26824113 (4) History of laparoscopic adjustable gastric banding Current Visit: Yes Status: Acute Code(s): Z98.84 - BARIATRIC SURGERY STATUS SNOMED Code(s): 688360728 (5) Sepsis Current Visit: Yes Status: Acute Code(s): A41.9 - SEPSIS, UNSPECIFIED ORGANISM SNOMED Code(s): 20715560
[2021-01-18 17:32] LABS: Glucose,Whole Blood 142 mg/dL (75-99)
--- NOTE | 2021-01-18 19:33 | PN ---
PROGRESS NOTE DATE OF SERVICE: 01/18/2021 This 55-year-old gentleman who was admitted with sepsis secondary to lap band infection as well as possible erosion is being closely monitored. The patient had surgery. The white count is also improving slightly at 15.8. Multiple consultants are following the patient closely. PHYSICAL EXAMINATION: Alert and oriented x3. Pulse 66, blood pressure 174/82, respiration 16, temperature 98.8, pulse ox 94% on room air. HEENT: Conjunctivae normal. NECK: No jugular venous distention. CARDIOVASCULAR: S1, S2 muffled. RESPIRATION: Breath sounds diminished at the bases. ABDOMEN: Soft. Status post surgery. No guarding. No rigidity. LEGS: No edema. No swelling. NERVOUS SYSTEM: No focal deficit. LAB STUDIES: WBC 15.08. Glucose noted. ASSESSMENT: 1. Sepsis secondary to lap band infection as well as possible erosion, status post diagnostic laparoscopy, exploratory laparotomy as well as removal of the lap band and gastrorrhaphy. 2. Hypertension. 3. Increased white count. 4. Diabetes mellitus, type 2. 5. History of coronary artery disease, coronary artery bypass grafting. 6. History of atrial fibrillation. 7. Hyponatremia, mild. 8. Hyperkalemia, present on admission. 9. Hypoalbuminemia with mild protein-calorie malnutrition. 10.Obesity with body mass index of 44.2. 11.Atrial fibrillation, chronic. 12.History of myocardial infarction. 13.History of loop recorder. 14.History of cardiac ablation. 15.History of coronary artery disease, coronary artery bypass grafting, stent. 16.FULL CODE. RECOMMENDATIONS AND DISCUSSION: I recommend to continue current medications, continue with symptomatic treatment. Continue with IV antibiotics. Cultures are all negative so far, including fungal cultures. Closely follow with Infectious Disease. Guarded prognosis. Further recommendations to follow. MMODL / IJN: [id number] /
[2021-01-18 20:33] LABS: Glucose,Whole Blood 128 mg/dL (75-99)
--- NOTE | 2021-01-19 00:38 | PN ---
PROGRESS NOTE DATE OF SERVICE: 01/18/2021 REASON FOR FOLLOWUP: Fever and leukocytosis. INTERVAL HISTORY: Patient is afebrile. Mentioned he is feeling slightly better, breathing comfortably. Patient denies having any chest pain. No shortness of breath or cough. No vomiting or diarrhea. PHYSICAL EXAMINATION: Blood pressure 150/71 with a pulse of 77, temperature 98.2. He is 96% on room air. General description is a middle-aged male up in the room in no distress. Respiratory system unlabored breathing, decreased breath sounds in the bases. No wheeze. Heart S1, S2. Regular rate and rhythm. Abdomen soft, no tenderness. LABS: White count down to 15,000. Blood culture has been negative. DIAGNOSTIC IMPRESSION AND PLAN: Patient with fever, elevated white count secondary to abdominal source in this patient who did have a lap band infection status post pneumonia apparent hanging history. The patient's white count responded to addition of Eraxis to continue along with Zosyn and monitor clinical course closely. Continue supportive care. MMODL / IJN: [id number] /
[2021-01-19] MEDS: HYDROmorphone 1 MG/ML 1 ML SYRINGE IVP PRN ×6 (01:34→21:41)
[2021-01-19] MEDS: METOPROLOL TARTRATE 5 MG/5 ML VIAL IVP SCH ×5 (01:35→23:57)
[2021-01-19] MEDS: PIPERACILLIN-TAZOBACTAM 3.375 GM in SODIUM CHLORIDE 0.9% 100 ML IVPB SCH ×3 (05:51→20:50)
[2021-01-19] MEDS: PANTOPRAZOLE 40 MG/10 ML VIAL IVP SCH (07:31)
[2021-01-19] MEDS: ANIDULAFUNGIN 100 MG in SODIUM CHLORIDE 0.9% 100 ML IVPB SCH ×2 (07:31→10:00)
[2021-01-19] MEDS: ENOXAPARIN 40 MG/0.4 ML SYRINGE SQ SCH (07:31)
[2021-01-19] MEDS: lisinopriL 20 MG TAB PO SCH (07:32)
[2021-01-19] MEDS: EZETIMIBE 10 MG TAB PO SCH (07:32)
[2021-01-19] MEDS: MAGNESIUM OXIDE 400 MG TAB PO SCH (07:32)
[2021-01-19] MEDS: hydrALAZINE HCL 50 MG TAB PO SCH ×2 (07:32→20:50)
[2021-01-19] MEDS: MULTIVITAMINS, THERA 1 EACH TAB PO SCH (07:32)
[2021-01-19] MEDS: SOTALOL 120 MG TAB PO SCH ×2 (07:34→18:46)
[2021-01-19] MEDS: SODIUM CHLORIDE 0.9% 1,000 ML IV SCH ×2 (07:42→23:58)
[2021-01-19 08:13] LABS: Glucose,Whole Blood 124 mg/dL (75-99)
[2021-01-19 08:51] LABS: Basophils # (A) 0.1 k/uL (0-0.2); Basophils % (A) 1 %; Eosinophils # (A) 0.2 k/uL (0-0.7); Eosinophils % (A) 1 %; HCT 39.2 % (39.0-53.0); HGB 13.1 gm/dL (13.0-17.5); Lymphocytes # (A) 0.9 k/uL (1.0-4.8); Lymphocytes % (A) 7 %; MCH 30.9 pg (25.0-35.0); MCHC 33.3 g/dL (31.0-37.0); MCV 92.7 fL (80.0-100.0); Monocytes # (A) 0.7 k/uL (0-1.0); Monocytes % (A) 6 %; Neutrophils # (A) 10.4 k/uL (1.3-7.7); Neutrophils % (A) 84 %; Platelet Count 372 k/uL (150-450); RBC 4.22 m/uL (4.30-5.90); RDW 12.8 % (11.5-15.5); WBC 12.5 k/uL (3.8-10.6)
[2021-01-19] MEDS: ASPIRIN 81 MG PO SCH (09:33)
[2021-01-19] MEDS: ATORVASTATIN 20 MG TAB PO SCH (09:33)
[2021-01-19] MEDS: CHLORTHALIDONE 25 MG TAB PO SCH (09:33)
[2021-01-19] MEDS: buPROPion XL 150 MG TAB.ER.24H PO SCH (09:33)
[2021-01-19] MEDS: DILTIAZEM CD 120 MG CAP.ER.24H PO SCH (09:34)
[2021-01-19] MEDS: CHOLECALCIFEROL 25 MCG (1000 IU) TABLET PO SCH (09:34)
[2021-01-19] MEDS: INSULIN ASPART (NovoLOG) 100 UNIT/ML VIAL SQ SCH ×4 (09:37→20:55)
--- NOTE | 2021-01-19 10:50 | P.PN ---
Subjective Progress Note Date: 01/19/21 CHIEF COMPLAINT: Lap band port infection HISTORY OF PRESENT ILLNESS: Patient is status post diagnostic laparoscopy, exploratory laparotomy, removal of lap band device and gastrorrhaphy POD #5. Patient reports his pain is controlled. He denies any nausea or vomiting. Denies any flatus or BM. Afebrile. White count trending down now at 12.5 PHYSICAL EXAM: VITAL SIGNS: Reviewed. GENERAL: Well-developed in no acute distress. HEENT: No sclera icterus. Extraocular movements grossly intact. Moist buccal mucosa. Head is atraumatic, normocephalic. ABDOMEN: Soft. Nondistended. Incision clean dry and intact. DENA drain was serosanguineous output. Minimal NEUROLOGIC: Alert and oriented. Cranial nerves II through XII grossly intact. ASSESSMENT: 1. Erosion of lap band and adhesions. Status post diagnostic laparoscopy, exploratory laparotomy, removal of lap band device and gastrorrhaphy on 01/14/2021 2. Infected lap band port status post lap band port removal on 01/07/2021 3. Leukocytosis 4. Urinary retention has Vang catheter in place PLAN: -Start clear liquid diet -Continue pain medication as needed -Continue antibiotics per ID -Continue IV fluids -GI prophylaxis Protonix and DVT prophylaxis Lovenox Physician Felt Strip Finisher note has been reviewed by physician. Signing provider agrees with the documented findings, assessment, and plan of care. Objective - Vital Signs Vital signs: Vital Signs Temp 99.3 F 01/19/21 08:00 Pulse 69 01/19/21 08:00 Resp 18 01/19/21 08:00 BP 168/81 01/19/21 08:00 Pulse Ox 94 L 01/19/21 08:00 Intake & Output 01/18/21 01/19/21 01/19/21 18:59 06:59 18:59 Output Total 550 800 Balance -550 -800 Output: Urine 550 800 Other: Voiding Method Indwelling Catheter Indwelling Catheter Indwelling Catheter - Labs CBC & Chem 7: 01/19/21 08:39 01/18/21 05:35 Labs: Abnormal Lab Results - Last 24 Hours (Table) 01/18/21 01/18/21 01/18/21 Range/Units 05:35 12:29 17:30 WBC (3.8-10.6) k/uL RBC (4.30-5.90) m/uL Neutrophils # (1.3-7.7) k/uL Lymphocytes # (1.0-4.8) k/uL Anion Gap 12.60 H (4.00-12.00) mmol/L Glucose 141 H (70-110) mg/dL POC Glucose (mg/dL) 142 H 142 H (75-99) mg/dL Calcium 8.2 L (8.7-10.3) mg/dL 01/18/21 01/19/21 01/19/21 Range/Units 20:32 08:07 08:39 WBC 12.5 H (3.8-10.6) k/uL RBC 4.22 L (4.30-5.90) m/uL Neutrophils # 10.4 H (1.3-7.7) k/uL Lymphocytes # 0.9 L (1.0-4.8) k/uL Anion Gap (4.00-12.00) mmol/L Glucose (70-110) mg/dL POC Glucose (mg/dL) 128 H 124 H (75-99) mg/dL Calcium (8.7-10.3) mg/dL Microbiology - Last 24 Hours (Table) 01/15/21 18:11 Blood Culture - Preliminary Blood No Growth after 72 hours
[2021-01-19 12:09] LABS: Glucose,Whole Blood 160 mg/dL (75-99)
[2021-01-19 17:39] LABS: Glucose,Whole Blood 248 mg/dL (75-99)
--- NOTE | 2021-01-19 18:49 | PN ---
PROGRESS NOTE DATE OF SERVICE: 01/19/2021. REASON FOR FOLLOWUP: Leukocytosis, fever, abdominal source. INTERVAL HISTORY: Patient is afebrile. The patient is breathing comfortably. The patient denies having any chest pain, shortness of breath or cough. Abdominal pain is currently controlled. No vomiting or diarrhea. PHYSICAL EXAMINATION: Blood pressure is 159/84, pulse of 81, temperature of 98.1. He is 95% on room air. General description is a middle-aged male up in the bed in no distress. Respiratory system: Unlabored breathing, clear to auscultation anteriorly. Heart S1, S2. Regular rate and rhythm. Abdomen soft, no tenderness. LABS: White count 12.5. Culture has been negative so far. DIAGNOSTIC IMPRESSION AND PLAN: Patient with fever, elevated white count concerning for abdominal source in this patient who did have infected lap band surgery, gastrography. The patient white count responded to the addition of Eraxis to continue along with Zosyn. Monitor clinical course closely. MMODL / IJN: [id number] /
[2021-01-19 20:27] LABS: Glucose,Whole Blood 256 mg/dL (75-99)
--- NOTE | 2021-01-20 00:06 | P.PN ---
Subjective This is a pleasant 55 years old male with past medical history of morbid obesity status post lap band. Presents with signs and symptoms of sepsis secondary to lap band infection. He presents with abdominal pain with low-grade fever of 100 on admission. He has CT of the abdomen and pelvis showing possible infection. Patient status post exploratory laparotomy on 01/14 with removal of the lap band device and gastrorrhaphy. Currently lying in bed comfortable. Patient was started today on liquid diet by surgery team. Vitals are stable. Leukocytosis is improving. Patient remains on Zosyn and eraxis and normal saline at 60 mL per hour Objective - Vital Signs Vital signs: Vital Signs Temp 99.3 F 01/19/21 08:00 Pulse 69 01/19/21 08:00 Resp 18 01/19/21 08:00 BP 168/81 01/19/21 08:00 Pulse Ox 94 L 01/19/21 08:00 Intake & Output 01/18/21 01/19/21 01/19/21 18:59 06:59 18:59 Output Total 550 800 Balance -550 -800 Output: Urine 550 800 Other: Voiding Method Indwelling Catheter Indwelling Catheter Indwelling Catheter - Exam -GENERAL: The patient is alert and oriented x3, not in any acute distress. Well morbidly obese HEENT: Pupils are round and equally reacting to light. EOMI. No scleral icterus. No conjunctival pallor. Normocephalic, atraumatic. No pharyngeal erythema. No thyromegaly. CARDIOVASCULAR: S1 and S2 present. No murmurs, rubs, or gallops. PULMONARY: Chest is clear to auscultation, no wheezing or crackles. -ABDOMEN: Soft, nontender, nondistended, normoactive bowel sounds. No palpable organomegaly. Surgical wounds closed and in dressing is in place MUSCULOSKELETAL: No joint swelling or deformity. EXTREMITIES: No cyanosis, clubbing, or pedal edema. NEUROLOGICAL: Gross neurological examination did not reveal any focal deficits. SKIN: No rashes. no petechiae. - Labs CBC & Chem 7: 01/19/21 08:39 01/18/21 05:35 Labs: Abnormal Lab Results - Last 24 Hours (Table) 01/18/21 01/18/21 01/19/21 Range/Units 17:30 20:32 08:07 WBC (3.8-10.6) k/uL RBC (4.30-5.90) m/uL Neutrophils # (1.3-7.7) k/uL Lymphocytes # (1.0-4.8) k/uL POC Glucose (mg/dL) 142 H 128 H 124 H (75-99) mg/dL 01/19/21 01/19/21 Range/Units 08:39 12:07 WBC 12.5 H (3.8-10.6) k/uL RBC 4.22 L (4.30-5.90) m/uL Neutrophils # 10.4 H (1.3-7.7) k/uL Lymphocytes # 0.9 L (1.0-4.8) k/uL POC Glucose (mg/dL) 160 H (75-99) mg/dL Microbiology - Last 24 Hours (Table) 01/15/21 18:11 Blood Culture - Preliminary Blood No Growth after 72 hours Assessment and Plan Assessment: Sepsis secondary to lap band infection status post exploratory laparotomy and removal of the lap band device and gastrorrhaphy Morbid obesity Chronic diastolic CHF Plan: This is a pleasant 55 years old male who presents with lap band infection status post laparotomy and removal of device and gastric repair Continue with Zosyn and eraxis Advance diet as tolerated per surgery team will follow the case closely ID team consult Continue with gentle hydration Labs and medication were reviewed.. Continue same treatment. Continue with symptomatic treatment. Resume home medication. Monitor lytes and vitals. DVT and GI prophylaxis. Further recommendationsas per clinical course of the patient DVT prophylaxis: Subcutaneous Lovenox GI Prophylaxis: Ppi
[2021-01-20] MEDS: HYDROmorphone 1 MG/ML 1 ML SYRINGE IVP PRN ×4 (05:10→20:50)
[2021-01-20] MEDS: PIPERACILLIN-TAZOBACTAM 3.375 GM in SODIUM CHLORIDE 0.9% 100 ML IVPB SCH ×3 (05:18→20:48)
[2021-01-20] MEDS: METOPROLOL TARTRATE 5 MG/5 ML VIAL IVP SCH ×3 (05:18→18:02)
[2021-01-20 07:22] LABS: Glucose,Whole Blood 164 mg/dL (75-99)
[2021-01-20] MEDS: ENOXAPARIN 40 MG/0.4 ML SYRINGE SQ SCH (09:22)
[2021-01-20] MEDS: ANIDULAFUNGIN 100 MG in SODIUM CHLORIDE 0.9% 100 ML IVPB SCH (09:22)
[2021-01-20] MEDS: PANTOPRAZOLE 40 MG/10 ML VIAL IVP SCH (09:23)
[2021-01-20] MEDS: CHOLECALCIFEROL 25 MCG (1000 IU) TABLET PO SCH (09:32)
[2021-01-20] MEDS: ASPIRIN 81 MG PO SCH (09:32)
[2021-01-20] MEDS: buPROPion XL 150 MG TAB.ER.24H PO SCH (09:32)
[2021-01-20] MEDS: hydrALAZINE HCL 50 MG TAB PO SCH ×2 (09:32→21:01)
[2021-01-20] MEDS: CHLORTHALIDONE 25 MG TAB PO SCH (09:32)
[2021-01-20] MEDS: EZETIMIBE 10 MG TAB PO SCH (09:32)
[2021-01-20] MEDS: MAGNESIUM OXIDE 400 MG TAB PO SCH (09:33)
[2021-01-20] MEDS: SOTALOL 120 MG TAB PO SCH ×2 (09:33→18:04)
[2021-01-20] MEDS: ATORVASTATIN 20 MG TAB PO SCH (09:33)
[2021-01-20] MEDS: lisinopriL 20 MG TAB PO SCH (09:33)
[2021-01-20] MEDS: MULTIVITAMINS, THERA 1 EACH TAB PO SCH (09:33)
[2021-01-20] MEDS: DILTIAZEM CD 120 MG CAP.ER.24H PO SCH (09:33)
[2021-01-20] MEDS: INSULIN ASPART (NovoLOG) 100 UNIT/ML VIAL SQ SCH ×4 (09:42→21:03)
[2021-01-20] MEDS: TAMSULOSIN 0.4 MG CAP.ER.24H PO SCH (09:43)
[2021-01-20 10:08] LABS: Basophils # (A) 0.1 k/uL (0-0.2); Basophils % (A) 1 %; Eosinophils # (A) 0.2 k/uL (0-0.7); Eosinophils % (A) 2 %; HCT 43.3 % (39.0-53.0); HGB 13.7 gm/dL (13.0-17.5); Lymphocytes # (A) 0.9 k/uL (1.0-4.8); Lymphocytes % (A) 8 %; MCH 29.8 pg (25.0-35.0); MCHC 31.7 g/dL (31.0-37.0); MCV 94.2 fL (80.0-100.0); Mean Platelet Volume 8.5; Monocytes # (A) 0.5 k/uL (0-1.0); Monocytes % (A) 4 %; Neutrophils # (A) 10.4 k/uL (1.3-7.7); Neutrophils % (A) 86 %; Platelet Count 408 k/uL (150-450); RDW 12.9 % (11.5-15.5); WBC 12.2 k/uL (3.8-10.6)
--- NOTE | 2021-01-20 11:56 | P.PN ---
Subjective Progress Note Date: 01/20/21 CHIEF COMPLAINT: Lap band port infection HISTORY OF PRESENT ILLNESS: Patient is status post diagnostic laparoscopy, exploratory laparotomy, removal of lap band device and gastrorrhaphy POD #6. Patient reports his pain is mostly incision site and his controlled.. He denies any nausea or vomiting. He is having flatus. No BM. He is tolerating clear liquid diet. Afebrile. WBC 12.2 hemoglobin 13.7 patient is complaining of yeast around the penile area PHYSICAL EXAM: VITAL SIGNS: Reviewed. GENERAL: Well-developed in no acute distress. HEENT: No sclera icterus. Extraocular movements grossly intact. Moist buccal mucosa. Head is atraumatic, normocephalic. ABDOMEN: Soft. Nondistended. Incision clean dry and intact. DENA drain was serosanguineous output. Minimal NEUROLOGIC: Alert and oriented. Cranial nerves II through XII grossly intact. ASSESSMENT: 1. Erosion of lap band and adhesions. Status post diagnostic laparoscopy, exploratory laparotomy, removal of lap band device and gastrorrhaphy on 01/14/2021 2. Infected lap band port status post lap band port removal on 01/07/2021 3. Leukocytosis 4. Urinary retention has Vang catheter in place PLAN: -Advance diet to full liquids -Okay for patient to resume home oral medications -Discontinue Vang catheter -Add Flomax for urinary retention -Continue pain medication as needed -Continue antibiotics per ID -Anticipate possible discharge tomorrow -GI prophylaxis Protonix and DVT prophylaxis Lovenox Physician Rollout Manager note has been reviewed by physician. Signing provider agrees with the documented findings, assessment, and plan of care. Objective - Vital Signs Vital signs: Vital Signs Temp 97.8 F 01/20/21 07:56 Pulse 67 01/20/21 07:56 Resp 16 01/20/21 07:56 BP 178/90 01/20/21 07:56 Pulse Ox 95 01/20/21 07:56 Intake & Output 01/19/21 01/20/21 01/20/21 18:59 06:59 18:59 Intake Total 720 Output Total 420 550 Balance -420 -550 720 Weight 139.7 kg Intake: Oral 720 Output: Drainage 20 Anterior Abdomen 20 Urine 400 550 Other: Voiding Method Indwelling Catheter Indwelling Catheter Indwelling Catheter - Labs CBC & Chem 7: 01/20/21 09:57 01/18/21 05:35 Labs: Abnormal Lab Results - Last 24 Hours (Table) 01/19/21 01/19/21 01/19/21 Range/Units 12:07 17:37 20:26 WBC (3.8-10.6) k/uL Neutrophils # (1.3-7.7) k/uL Lymphocytes # (1.0-4.8) k/uL POC Glucose (mg/dL) 160 H 248 H 256 H (75-99) mg/dL 01/20/21 01/20/21 Range/Units 07:21 09:57 WBC 12.2 H (3.8-10.6) k/uL Neutrophils # 10.4 H (1.3-7.7) k/uL Lymphocytes # 0.9 L (1.0-4.8) k/uL POC Glucose (mg/dL) 164 H (75-99) mg/dL Microbiology - Last 24 Hours (Table) 01/15/21 18:11 Blood Culture - Preliminary Blood No Growth after 96 hours
[2021-01-20 12:17] LABS: Glucose,Whole Blood 226 mg/dL (75-99)
[2021-01-20 17:27] LABS: Glucose,Whole Blood 245 mg/dL (75-99)
[2021-01-20] MEDS: SODIUM CHLORIDE 0.9% 1,000 ML IV SCH (18:07)
--- NOTE | 2021-01-20 19:56 | P.PN ---
Subjective This is a pleasant 55 years old male with past medical history of morbid obesity status post lap band. Presents with signs and symptoms of sepsis secondary to lap band infection. He presents with abdominal pain with low-grade fever of 100 on admission. He has CT of the abdomen and pelvis showing possible infection. Patient status post exploratory laparotomy on 01/14 with removal of the lap band device and gastrorrhaphy. Currently lying in bed comfortable. Patient was started today on liquid diet by surgery team. Vitals are stable. Leukocytosis is improving. Patient remains on Zosyn and eraxis and normal saline at 60 mL per hour 01/20/2021 Patient remains fully awake and oriented. He developed some abdominal pain after liquid diet is a started by surgery team. However patient is willing to keep him on liquid diet. We will keep monitoring. Continue with symptomatic treatment. His leukocytosis is improved to 12.2. Continue with Zosyn, Eraxis and normal saline at 60 mL per hour. Monitor urine output. Surgery and ID team's on the case Objective - Vital Signs Vital signs: Vital Signs Temp 97.8 F 01/20/21 07:56 Pulse 67 01/20/21 07:56 Resp 16 01/20/21 07:56 BP 178/90 01/20/21 07:56 Pulse Ox 95 01/20/21 07:56 Intake & Output 01/19/21 01/20/21 01/20/21 18:59 06:59 18:59 Intake Total 720 Output Total 420 550 500 Balance -420 -550 220 Weight 139.7 kg Intake: Oral 720 Output: Drainage 20 Anterior Abdomen 20 Urine 400 550 500 Uretheral (Vang) 500 Other: Voiding Method Indwelling Catheter Indwelling Catheter Indwelling Catheter - Exam -GENERAL: The patient is alert and oriented x3, not in any acute distress. Well morbidly obese HEENT: Pupils are round and equally reacting to light. EOMI. No scleral icterus. No conjunctival pallor. Normocephalic, atraumatic. No pharyngeal erythema. No thyromegaly. CARDIOVASCULAR: S1 and S2 present. No murmurs, rubs, or gallops. PULMONARY: Chest is clear to auscultation, no wheezing or crackles. -ABDOMEN: Soft, nontender, nondistended, normoactive bowel sounds. No palpable organomegaly. Surgical wounds closed and in dressing is in place MUSCULOSKELETAL: No joint swelling or deformity. EXTREMITIES: No cyanosis, clubbing, or pedal edema. NEUROLOGICAL: Gross neurological examination did not reveal any focal deficits. SKIN: No rashes. no petechiae. - Labs CBC & Chem 7: 01/20/21 09:57 01/18/21 05:35 Labs: Abnormal Lab Results - Last 24 Hours (Table) 01/19/21 01/19/21 01/20/21 Range/Units 17:37 20:26 07:21 WBC (3.8-10.6) k/uL Neutrophils # (1.3-7.7) k/uL Lymphocytes # (1.0-4.8) k/uL POC Glucose (mg/dL) 248 H 256 H 164 H (75-99) mg/dL 01/20/21 01/20/21 Range/Units 09:57 12:15 WBC 12.2 H (3.8-10.6) k/uL Neutrophils # 10.4 H (1.3-7.7) k/uL Lymphocytes # 0.9 L (1.0-4.8) k/uL POC Glucose (mg/dL) 226 H (75-99) mg/dL Microbiology - Last 24 Hours (Table) 01/15/21 18:11 Blood Culture - Preliminary Blood No Growth after 96 hours Assessment and Plan Assessment: Sepsis secondary to lap band infection status post exploratory laparotomy and removal of the lap band device and gastrorrhaphy Morbid obesity Chronic diastolic CHF Plan: This is a pleasant 55 years old male who presents with lap band infection status post laparotomy and removal of device and gastric repair Continue with Zosyn and eraxis Advance diet as tolerated per surgery team will follow the case closely ID team consult Continue with gentle hydration Labs and medication were reviewed.. Continue same treatment. Continue with symptomatic treatment. Resume home medication. Monitor lytes and vitals. DVT and GI prophylaxis. Further recommendationsas per clinical course of the patient DVT prophylaxis: Subcutaneous Lovenox GI Prophylaxis: Ppi
[2021-01-20 20:38] LABS: Glucose,Whole Blood 261 mg/dL (75-99)
[2021-01-20] MEDS: HYDROcodone/APAP 5-325MG 1 EACH TAB PO PRN (20:49)
--- NOTE | 2021-01-20 22:08 | PN ---
PROGRESS NOTE DATE OF SERVICE: 01/20/2021 REASON FOR FOLLOW UP: INTERVAL HISTORY: The patient is afebrile. The patient no chest pain, shortness of breath, cough . EXAMINATION: Blood pressure 154/76. Pulse 93. He is 96 . General description is a middle- aged male up in the bed in no distress. Respiratory system: Unlabored breathing. Decreased breath sounds at the bases. No wheeze. Heart S1, S2. Regular rate and rhythm. Abdomen soft. No tenderness. LABS: Hemoglobin is 13, white count 7.2. negative. DIAGNOSTIC IMPRESSION AND PLAN: Patient with an elevated white count hospital with lap band infection, status post removal of the lap band and gastrography. White count responded to could not be used because of drug interaction with that medication. White count normalized. Continue with . Continue supportive care. MMNEHEMIAHL / IJN: [id number] /
[2021-01-21] MEDS: METOPROLOL TARTRATE 5 MG/5 ML VIAL IVP SCH ×2 (00:29→05:53)
[2021-01-21] MEDS: PIPERACILLIN-TAZOBACTAM 3.375 GM in SODIUM CHLORIDE 0.9% 100 ML IVPB SCH ×3 (05:55→21:49)
[2021-01-21] MEDS: HYDROmorphone 1 MG/ML 1 ML SYRINGE IVP PRN ×4 (07:13→21:52)
[2021-01-21] MEDS: PANTOPRAZOLE 40 MG/10 ML VIAL IVP SCH (07:18)
[2021-01-21] MEDS: MULTIVITAMINS, THERA 1 EACH TAB PO SCH (07:18)
[2021-01-21] MEDS: ENOXAPARIN 40 MG/0.4 ML SYRINGE SQ SCH (07:18)
[2021-01-21] MEDS: ATORVASTATIN 20 MG TAB PO SCH (07:19)
[2021-01-21] MEDS: TAMSULOSIN 0.4 MG CAP.ER.24H PO SCH (07:19)
[2021-01-21] MEDS: SOTALOL 120 MG TAB PO SCH ×2 (07:19→17:51)
[2021-01-21] MEDS: CHOLECALCIFEROL 25 MCG (1000 IU) TABLET PO SCH (07:19)
[2021-01-21] MEDS: DILTIAZEM CD 120 MG CAP.ER.24H PO SCH (07:19)
[2021-01-21] MEDS: ASPIRIN 81 MG PO SCH (07:19)
[2021-01-21] MEDS: buPROPion XL 150 MG TAB.ER.24H PO SCH (07:19)
[2021-01-21] MEDS: lisinopriL 20 MG TAB PO SCH (07:19)
[2021-01-21] MEDS: MAGNESIUM OXIDE 400 MG TAB PO SCH (07:19)
[2021-01-21] MEDS: SODIUM CHLORIDE 0.9% 1,000 ML IV SCH (07:20)
[2021-01-21] MEDS: EZETIMIBE 10 MG TAB PO SCH (07:20)
[2021-01-21] MEDS: CHLORTHALIDONE 25 MG TAB PO SCH (07:20)
[2021-01-21] MEDS: hydrALAZINE HCL 50 MG TAB PO SCH ×2 (07:20→21:50)
[2021-01-21 07:28] LABS: Glucose,Whole Blood 167 mg/dL (75-99)
[2021-01-21] MEDS: LACTATED RINGERS 1,000 ML IV SCH (07:37)
[2021-01-21] MEDS: INSULIN ASPART (NovoLOG) 100 UNIT/ML VIAL SQ SCH ×4 (08:26→21:49)
[2021-01-21] MEDS: ANIDULAFUNGIN 100 MG in SODIUM CHLORIDE 0.9% 100 ML IVPB SCH (08:27)
[2021-01-21 10:07] LABS: Basophils # (A) 0.07 X 10*3/uL (0.00-0.10); Basophils % (A) 0.6 %; Eosinophils % (A) 1.7 %; HCT 38.9 % (39.6-50.0); Lymphocytes # (A) 1.23 X 10*3/uL (0.90-5.00); Lymphocytes % (A) 10.7 %; MCHC 30.8 g/dL (32.0-37.0); MCV 90.9 fL (80.0-97.0); Monocytes # (A) 1.23 X 10*3/uL (0.20-1.00); Monocytes % (A) 10.7 %; Neutrophils # (A) 8.69 X 10*3/uL (1.80-7.70); Neutrophils % (A) 75.7 %; Platelet Count 355 X 10*3/uL (140-440); RBC 4.28 X 10*6/uL (4.40-5.60); RDW 13.2 % (11.5-14.5); WBC 11.49 X 10*3/uL (4.50-10.00)
[2021-01-21] MEDS: METOPROLOL TARTRATE 50 MG TAB PO SCH ×2 (11:10→21:49)
[2021-01-21 11:11] LABS: Anion Gap 12.1 mmol/L (4.00-12.00); BUN/Creat Ratio 12.81 Ratio (12.00-20.00); Blood Urea Nitrogen 11.4 mg/dL (9.0-27.0); C Reactive Protein 11.6 mg/dL (0.00-0.80); Calcium 8.2 mg/dL (8.7-10.3); Carbon Dioxide 27.8 mmol/L (21.6-31.8); Non-African American GFR(CKD) 94.9 (60.0-200.0); Potassium 3.4 mmol/L (3.5-5.5)
[2021-01-21 12:27] LABS: Glucose,Whole Blood 217 mg/dL (75-99)
[2021-01-21] MEDS ORDERED: POTASSIUM CHLORIDE ER 20 MEQ TAB.ER PO STA (13:17)
--- NOTE | 2021-01-21 13:19 | P.PN ---
Subjective Progress Note Date: 01/21/21 CHIEF COMPLAINT: Lap band port infection HISTORY OF PRESENT ILLNESS: Patient is status post diagnostic laparoscopy, exploratory laparotomy, removal of lap band device and gastrorrhaphy POD #7. Patient reports that his pain is controlled. He is having flatus. Did have a small BM. He is urinating without difficulty. Vang catheter was discontinued yesterday. He does report having yeast still present in the penile area. Discussed case with infectious disease. The recommending Eraxis for 1 more day. WBC trending downwards to 11.49 hemoglobin 12 potassium is 3.4 PHYSICAL EXAM: VITAL SIGNS: Reviewed. GENERAL: Well-developed in no acute distress. HEENT: No sclera icterus. Extraocular movements grossly intact. Moist buccal mucosa. Head is atraumatic, normocephalic. ABDOMEN: Soft. Nondistended. Incision clean dry and intact. DENA drain was serosanguineous output. Minimal NEUROLOGIC: Alert and oriented. Cranial nerves II through XII grossly intact. ASSESSMENT: 1. Erosion of lap band and adhesions. Status post diagnostic laparoscopy, exploratory laparotomy, removal of lap band device and gastrorrhaphy on 01/14/2021 2. Infected lap band port status post lap band port removal on 01/07/2021 3. Leukocytosis 4. Urinary retention resolved 5. Hypokalemia PLAN: -Place potassium -Continue full liquids -Continue pain medication as needed -Continue antibiotics per ID -Anticipate discharge tomorrow -GI prophylaxis Protonix and DVT prophylaxis Lovenox Physician Survey Analyst note has been reviewed by physician. Signing provider agrees with the documented findings, assessment, and plan of care. Objective - Vital Signs Vital signs: Vital Signs Temp 97.8 F 01/21/21 07:17 Pulse 61 01/21/21 07:17 Resp 16 01/21/21 07:17 BP 169/86 01/21/21 07:17 Pulse Ox 93 L 01/21/21 07:17 Intake & Output 01/20/21 01/21/21 01/21/21 18:59 06:59 18:59 Intake Total 720 840 240 Output Total 500 200 Balance 220 640 240 Weight 139.7 kg Intake: Intake, IV Titration 840 Amount Piperacillin-Tazobactam 3 300 .375 gm In Sodium Chloride 0.9% 100 ml @ 25 mls/hr IVPB Q8H [facility] Rx#: [id number] Sodium Chloride 0.9% 1, 540 000 ml @ 60 mls/hr IV . [id number] [facility] Rx#:[id number] Oral 720 240 Output: Urine 500 200 Uretheral (Vang) 500 Other: Voiding Method Indwelling Catheter Toilet # Voids 2 2 - Labs CBC & Chem 7: 01/21/21 05:42 01/21/21 05:42 Labs: Abnormal Lab Results - Last 24 Hours (Table) 01/20/21 01/20/21 01/21/21 Range/Units 17:24 20:36 05:42 WBC 11.49 H (4.50-10.00) X 10*3/uL RBC 4.28 L (4.40-5.60) X 10*6/uL Hgb 12.0 L (13.0-17.0) g/dL Hct 38.9 L (39.6-50.0) % MCHC 30.8 L (32.0-37.0) g/dL Immature Gran # 0.07 H (0.00-0.04) X 10*3/uL Neutrophils # 8.69 H (1.80-7.70) X 10*3/uL Monocytes # 1.23 H (0.20-1.00) X 10*3/uL Potassium (3.5-5.5) mmol/L Anion Gap (4.00-12.00) mmol/L Glucose (70-110) mg/dL POC Glucose (mg/dL) 245 H 261 H (75-99) mg/dL Calcium (8.7-10.3) mg/dL C-Reactive Protein (0.00-0.80) mg/dL Procalcitonin (0.02-0.09) ng/mL 01/21/21 01/21/21 01/21/21 Range/Units 05:42 05:42 07:26 WBC (4.50-10.00) X 10*3/uL RBC (4.40-5.60) X 10*6/uL Hgb (13.0-17.0) g/dL Hct (39.6-50.0) % MCHC (32.0-37.0) g/dL Immature Gran # (0.00-0.04) X 10*3/uL Neutrophils # (1.80-7.70) X 10*3/uL Monocytes # (0.20-1.00) X 10*3/uL Potassium 3.4 L (3.5-5.5) mmol/L Anion Gap 12.10 H (4.00-12.00) mmol/L Glucose 165 H (70-110) mg/dL POC Glucose (mg/dL) 167 H (75-99) mg/dL Calcium 8.2 L (8.7-10.3) mg/dL C-Reactive Protein 11.60 H (0.00-0.80) mg/dL Procalcitonin 0.17 H (0.02-0.09) ng/mL 01/21/21 Range/Units 12:24 WBC (4.50-10.00) X 10*3/uL RBC (4.40-5.60) X 10*6/uL Hgb (13.0-17.0) g/dL Hct (39.6-50.0) % MCHC (32.0-37.0) g/dL Immature Gran # (0.00-0.04) X 10*3/uL Neutrophils # (1.80-7.70) X 10*3/uL Monocytes # (0.20-1.00) X 10*3/uL Potassium (3.5-5.5) mmol/L Anion Gap (4.00-12.00) mmol/L Glucose (70-110) mg/dL POC Glucose (mg/dL) 217 H (75-99) mg/dL Calcium (8.7-10.3) mg/dL C-Reactive Protein (0.00-0.80) mg/dL Procalcitonin (0.02-0.09) ng/mL Microbiology - Last 24 Hours (Table) 01/15/21 18:11 Blood Culture - Preliminary Blood No Growth after 120 hours
--- NOTE | 2021-01-21 14:35 | P.PN ---
Subjective Progress Note Date: 01/21/21 This is a pleasant 55 years old male with past medical history of morbid obesity status post lap band. Presents with signs and symptoms of sepsis secondary to lap band infection. He presents with abdominal pain with low-grade fever of 100 on admission. He has CT of the abdomen and pelvis showing possible infection. Patient status post exploratory laparotomy on 01/14 with removal of the lap band device and gastrorrhaphy. Currently lying in bed comfortable. Patient was started today on liquid diet by surgery team. Vitals are stable. Leukocytosis is improving. Patient remains on Zosyn and eraxis and normal saline at 60 mL per hour 01/20/2021 Patient remains fully awake and oriented. He developed some abdominal pain after liquid diet is a started by surgery team. However patient is willing to keep him on liquid diet. We will keep monitoring. Continue with symptomatic treatment. His leukocytosis is improved to 12.2. Continue with Zosyn, Eraxis and normal saline at 60 mL per hour. Monitor urine output. Surgery and ID team's on the case 01/21/2021 Patient is seen and evaluated in follow-up this morning no acute overnight issues. Patient did have indwelling Vang catheter removed and is concerned with a possible lesion noted on the tip of the penis and infectious disease foll owing the patient is maintained on IV Zosyn along with antifungal Anidulafungin daily. Some mild hematuria noted and hemoglobin is stable at 12.0. Urine cultures are negative and patient denies any burning with urination. Patient is continued on full liquids per surgery recommendations and tolerating with no reports of nausea and vomiting noted. Recommend repeat labs in the morning. Labs: White blood count is 11.49, hemoglobin is 12.0, platelets are 355, sodium is 140, potassium is 3.4 and being replaced, creatinine is 0.9, CRP is 11.6, pro calcitonin 0.17. Review of systems: Constitutional: No reports of fatigue, fever, or chills Cardiovascular: No reports of chest pain or palpitations Respiratory: No reports of shortness of breath or cough GI: No reports of nausea, vomiting, or diarrhea : No reports of dysuria or retention Neurovascular: No reports of weakness or numbness All medications have been reviewed Active Medications Acetaminophen (Acetaminophen Tab 325 Mg Tab) 650 mg PO Q6HR PRN PRN Reason: Mild Pain or Fever > 100.5 Last Admin: 10/09/21 01:51 Dose: 650 mg Documented by: Hydrocodone Bitart/Acetaminophen (Hydrocodone/Apap 5-325mg 1 Each Tab) 1 each PO Q4HR PRN PRN Reason: Pain Last Admin: 01/20/21 20:49 Dose: 1 each Documented by: Aspirin (Aspirin 81 Mg) 81 mg PO DAILY [facility] Last Admin: 01/21/21 07:19 Dose: 81 mg Documented by: Atorvastatin Calcium (Atorvastatin 20 Mg Tab) 20 mg PO DAILY [facility] Last Admin: 01/21/21 07:19 Dose: 20 mg Documented by: Bupropion HCl (Bupropion Xl 150 Mg Tab.Er.24h) 150 mg PO DAILY [facility] Last Admin: 01/21/21 07:19 Dose: 150 mg Documented by: Chlorthalidone (Chlorthalidone 25 Mg Tab) 25 mg PO DAILY [facility] Last Admin: 01/21/21 07:20 Dose: 25 mg Documented by: Cholecalciferol (Cholecalciferol 25 Mcg (1000 Iu) Tablet) 25 mcg PO DAILY [facility] Last Admin: 01/21/21 07:19 Dose: 25 mcg Documented by: Diltiazem HCl (Diltiazem Cd 120 Mg Cap.Er.24h) 120 mg PO DAILY [facility] Last Admin: 01/21/21 07:19 Dose: 120 mg Documented by: Ezetimibe (Ezetimibe 10 Mg Tab) 10 mg PO DAILY [facility] Last Admin: 01/21/21 07:20 Dose: 10 mg Documented by: Enoxaparin Sodium (Enoxaparin 40 Mg/0.4 Ml Syringe) 40 mg SQ DAILY [facility] Last Admin: 01/21/21 07:18 Dose: 40 mg Documented by: Hydralazine HCl (Hydralazine Hcl 50 Mg Tab) 50 mg PO BID [facility] Last Admin: 01/21/21 07:20 Dose: 50 mg Documented by: Hydralazine HCl (Hydralazine Hcl 20 Mg/Ml 1 Ml Vial) 10 mg IVP Q4HR PRN PRN Reason: Blood Pressure - High Last Admin: 01/17/21 08:40 Dose: 10 mg Documented by: Hydromorphone HCl (Hydromorphone 1 Mg/Ml 1 Ml Syringe) 1 mg IVP Q3HR PRN PRN Reason: Severe Pain Last Admin: 01/21/21 11:16 Dose: 1 mg Documented by: Hydromorphone HCl (Hydromorphone 1 Mg/Ml 1 Ml Syringe) 1 mg IVP Q3HR PRN PRN Reason: Moderate Pain Last Admin: 01/15/21 01:51 Dose: 1 mg Documented by: Sodium Chloride (Saline 0.9%) 1,000 mls @ 60 mls/hr IV .[id number] [facility] Last Admin: 01/21/21 07:20 Dose: 60 mls/hr Documented by: Anidulafungin 100 mg/ Sodium (Chloride) 100 mls @ 84 mls/hr IVPB DAILY [facility] Last Admin: 01/21/21 08:27 Dose: 84 mls/hr Documented by: Piperacillin Sod/Tazobactam (Sod 3.375 gm/ Sodium Chloride) 100 mls @ 25 mls/hr IVPB Q8H [facility] Last Admin: 01/21/21 13:11 Dose: 25 mls/hr Documented by: Insulin Aspart (Insulin Aspart (Novolog) 100 Unit/Ml Vial) 0 unit SQ ACHS [facility]; Protocol Last Admin: 01/21/21 13:12 Dose: 4 unit Documented by: Lidocaine HCl (Lidocaine 1% (10mg/Ml) For Iv Start) 0.1 ml INTRADERMA PER PROTOCOL PRN PRN Reason: IV Start Lisinopril (Lisinopril 20 Mg Tab) 20 mg PO DAILY [facility] Last Admin: 01/21/21 07:19 Dose: 20 mg Documented by: Magnesium Oxide (Magnesium Oxide 400 Mg Tab) 400 mg PO DAILY [facility] Last Admin: 01/21/21 07:19 Dose: 400 mg Documented by: Metoclopramide HCl (Metoclopramide 5 Mg/Ml 2 Ml Vial) 10 mg IVP Q6H PRN PRN Reason: Nausea And Vomiting Metoprolol Tartrate (Metoprolol Tartrate 50 Mg Tab) 50 mg PO BID [facility] Last Admin: 01/21/21 11:10 Dose: 50 mg Documented by: Multivitamins (Multivitamins, Thera 1 Each Tab) 1 each PO DAILY [facility] Last Admin: 01/21/21 07:18 Dose: 1 each Documented by: Naloxone HCl (Naloxone 0.4 Mg/Ml 1 Ml Vial) 0.2 mg IV Q2M PRN PRN Reason: Opioid Reversal Ondansetron HCl (Ondansetron 4 Mg/2 Ml Vial) 4 mg IVP Q8HR PRN PRN Reason: Nausea And Vomiting Ondansetron HCl (Ondansetron 4 Mg/2 Ml Vial) 4 mg IVP Q6HR PRN PRN Reason: Nausea And Vomiting Pantoprazole Sodium (Pantoprazole 40 Mg/10 Ml Vial) 40 mg IVP DAILY [facility] Last Admin: 01/21/21 07:18 Dose: 40 mg Documented by: Sotalol HCl (Sotalol 120 Mg Tab) 240 mg PO BID-W/MEALS [facility] Last Admin: 01/21/21 07:19 Dose: 240 mg Documented by: Tamsulosin HCl (Tamsulosin 0.4 Mg Cap.Er.24h) 0.4 mg PO PC-BRKFST [facility] Last Admin: 01/21/21 07:19 Dose: 0.4 mg Documented by: Physical exam: GENERAL: The patient is alert and oriented x3, not in any acute distress. Well morbidly obese HEENT: Pupils are round and equally reacting to light. EOMI. No scleral icterus. No conjunctival pallor. Normocephalic, atraumatic. No pharyngeal erythema. No thyromegaly. CARDIOVASCULAR: S1 and S2 present. No murmurs, rubs, or gallops. PULMONARY: Chest is clear to auscultation, no wheezing or crackles. ABDOMEN: Soft, nontender, nondistended, normoactive bowel sounds. No palpable organomegaly. Surgical wounds closed and in dressing is in place MUSCULOSKELETAL: No joint swelling or deformity. EXTREMITIES: No cyanosis, clubbing, or pedal edema. NEUROLOGICAL: Gross neurological examination did not reveal any focal deficits. SKIN: No rashes. no petechiae. Assessment: Sepsis secondary to lap band infection status post exploratory laparotomy and removal of the lap band device and gastrorrhaphy Morbid obesity Chronic diastolic CHF Plan: This is a pleasant 55 years old male who presents with lap band infection status post laparotomy and removal of device and gastric repair Continue with Zosyn and eraxis Advance diet as tolerated per surgery team will follow the case closely, continued on full liquids and tolerating ID team following Continue with gentle hydration Labs and medication were reviewed.. Continue same treatment. Continue with symptomatic treatment. Resume home medication. Monitor lytes and vitals. DVT and GI prophylaxis. Further recommendationsas per clinical course of the patient DVT prophylaxis: Subcutaneous Lovenox GI Prophylaxis: Ppi Objective - Vital Signs Vital signs: Vital Signs Temp 97.8 F 01/21/21 07:17 Pulse 61 01/21/21 07:17 Resp 16 01/21/21 07:17 BP 169/86 01/21/21 07:17 Pulse Ox 93 L 01/21/21 07:17 Intake & Output 01/20/21 01/21/21 01/21/21 18:59 06:59 18:59 Intake Total 720 840 Output Total 500 200 Balance 220 640 Weight 139.7 kg Intake: Intake, IV Titration 840 Amount Piperacillin-Tazobactam 3 300 .375 gm In Sodium Chloride 0.9% 100 ml @ 25 mls/hr IVPB Q8H [facility] Rx#: [id number] Sodium Chloride 0.9% 1, 540 000 ml @ 60 mls/hr IV . [id number] [facility] Rx#:[id number] Oral 720 Output: Urine 500 200 Uretheral (Vang) 500 Other: Voiding Method Indwelling Catheter Toilet # Voids 2 2 - Labs CBC & Chem 7: 01/21/21 05:42 01/21/21 05:42 Labs: Abnormal Lab Results - Last 24 Hours (Table) 01/20/21 01/20/21 01/20/21 Range/Units 09:57 12:15 17:24 WBC 12.2 H (3.8-10.6) k/uL Neutrophils # 10.4 H (1.3-7.7) k/uL Lymphocytes # 0.9 L (1.0-4.8) k/uL POC Glucose (mg/dL) 226 H 245 H (75-99) mg/dL 01/20/21 01/21/21 Range/Units 20:36 07:26 WBC (3.8-10.6) k/uL Neutrophils # (1.3-7.7) k/uL Lymphocytes # (1.0-4.8) k/uL POC Glucose (mg/dL) 261 H 167 H (75-99) mg/dL Microbiology - Last 24 Hours (Table) 01/15/21 18:11 Blood Culture - Preliminary Blood No Growth after 120 hours
[2021-01-21] MEDS: HYDROcodone/APAP 5-325MG 1 EACH TAB PO PRN (15:51)
[2021-01-21 17:13] LABS: Glucose,Whole Blood 182 mg/dL (75-99)
--- NOTE | 2021-01-21 18:36 | PN ---
PROGRESS NOTE DATE OF SERVICE: 01/21/2021 REASON FOR FOLLOWUP: Leukocytosis, likely abdominal source. INTERVAL HISTORY: The patient is afebrile. The patient is currently breathing comfortably. The patient denies having any chest pain or shortness of breath or cough. Abdominal pain is currently controlled. No vomiting or diarrhea. PHYSICAL EXAMINATION: Blood pressure 137/70 with a pulse of 88, temperature 97.8. He is 96% on room air. General description is a middle-aged male lying in bed in no distress. RESPIRATORY SYSTEM: Unlabored breathing. Decreased intensity of breath sounds. No wheeze. HEART: S1, S2. Regular rate and rhythm. ABDOMEN: Soft. No tenderness. LABS: White count is down to 11.49, creatinine 0.9. DIAGNOSTIC IMPRESSION AND PLAN: Patient with a fever and leukocytosis in this patient who did have a lap band infection, status post removal of lap band and gastrorrhaphy, with white count responding to Eraxis. Patient does have other medication oral Diflucan. Recommend midline and a short course of Eraxis along with oral Augmentin and close outpatient followup. MMODL / IJN: [id number] /
[2021-01-21 20:29] LABS: Glucose,Whole Blood 214 mg/dL (75-99)
[2021-01-22] MEDS: SODIUM CHLORIDE 0.9% 1,000 ML IV SCH ×2 (02:40→17:30)
[2021-01-22] MEDS: HYDROmorphone 1 MG/ML 1 ML SYRINGE IVP PRN ×4 (04:02→23:33)
[2021-01-22] MEDS: HYDROcodone/APAP 5-325MG 1 EACH TAB PO PRN (04:03)
[2021-01-22] MEDS: PIPERACILLIN-TAZOBACTAM 3.375 GM in SODIUM CHLORIDE 0.9% 100 ML IVPB SCH ×3 (05:31→20:16)
[2021-01-22 07:46] LABS: Glucose,Whole Blood 175 mg/dL (75-99)
[2021-01-22] MEDS: INSULIN ASPART (NovoLOG) 100 UNIT/ML VIAL SQ SCH ×4 (07:55→20:48)
[2021-01-22] MEDS: ENOXAPARIN 40 MG/0.4 ML SYRINGE SQ SCH (07:55)
[2021-01-22] MEDS: PANTOPRAZOLE 40 MG/10 ML VIAL IVP SCH (07:56)
[2021-01-22] MEDS: ASPIRIN 81 MG PO SCH (07:58)
[2021-01-22] MEDS: CHOLECALCIFEROL 25 MCG (1000 IU) TABLET PO SCH (07:58)
[2021-01-22] MEDS: METOPROLOL TARTRATE 50 MG TAB PO SCH ×2 (07:58→20:16)
[2021-01-22] MEDS: lisinopriL 20 MG TAB PO SCH (07:58)
[2021-01-22] MEDS: ATORVASTATIN 20 MG TAB PO SCH (07:58)
[2021-01-22] MEDS: MAGNESIUM OXIDE 400 MG TAB PO SCH (07:58)
[2021-01-22] MEDS: TAMSULOSIN 0.4 MG CAP.ER.24H PO SCH (07:58)
[2021-01-22] MEDS: MULTIVITAMINS, THERA 1 EACH TAB PO SCH (07:58)
[2021-01-22] MEDS: EZETIMIBE 10 MG TAB PO SCH (07:59)
[2021-01-22] MEDS: SOTALOL 120 MG TAB PO SCH ×2 (07:59→17:31)
[2021-01-22] MEDS: hydrALAZINE HCL 50 MG TAB PO SCH ×2 (07:59→20:16)
[2021-01-22] MEDS: CHLORTHALIDONE 25 MG TAB PO SCH (07:59)
[2021-01-22] MEDS: buPROPion XL 150 MG TAB.ER.24H PO SCH (07:59)
[2021-01-22] MEDS: DILTIAZEM CD 120 MG CAP.ER.24H PO SCH (07:59)
[2021-01-22] MEDS: ANIDULAFUNGIN 100 MG in SODIUM CHLORIDE 0.9% 100 ML IVPB SCH (10:11)
[2021-01-22 12:13] LABS: Glucose,Whole Blood 214 mg/dL (75-99)
--- NOTE | 2021-01-22 12:30 | P.PN ---
Subjective Progress Note Date: 01/22/21 CHIEF COMPLAINT: Lap band port infection HISTORY OF PRESENT ILLNESS: Patient is status post diagnostic laparoscopy, exploratory laparotomy, removal of lap band device and gastrorrhaphy POD #8. Patient reports that his pain is controlled. He is having flatus and BM. He is tolerating diet. Patient does have some erythema around his incision. No drainage. Afebrile. Labs are pending PHYSICAL EXAM: VITAL SIGNS: Reviewed. GENERAL: Well-developed in no acute distress. HEENT: No sclera icterus. Extraocular movements grossly intact. Moist buccal mucosa. Head is atraumatic, normocephalic. ABDOMEN: Soft. Nondistended. Incision site with erythema. No drainage. DENA drain was minimal sanguineous output. l NEUROLOGIC: Alert and oriented. Cranial nerves II through XII grossly intact. ASSESSMENT: 1. Erosion of lap band and adhesions. Status post diagnostic laparoscopy, exploratory laparotomy, removal of lap band device and gastrorrhaphy on 01/14/2021 2. Infected lap band port status post lap band port removal on 01/07/2021 3. Leukocytosis 4. Urinary retention resolved 5. Hypokalemia PLAN: -Keep patient one more day to the redness around his incision site -Continue antibiotics and antifungals per ID -Continue full liquids -Continue pain medication as needed -Anticipate discharge tomorrow -GI prophylaxis Protonix and DVT prophylaxis Lovenox Physician Ceramic Saw Tender note has been reviewed by physician. Signing provider agrees with the documented findings, assessment, and plan of care. Objective - Vital Signs Vital signs: Vital Signs Temp 97.9 F 01/22/21 08:00 Pulse 63 01/22/21 08:00 Resp 18 01/22/21 08:00 BP 164/88 01/22/21 08:00 Pulse Ox 96 01/22/21 08:00 Intake & Output 01/21/21 01/22/21 01/22/21 18:59 06:59 18:59 Intake Total 480 680 354 Balance 480 680 354 Weight 139.7 kg Intake: Intake, IV Titration 680 Amount Lactated Ringers 1,000 ml 480 @ 0 mls/hr IV .[facility] Rx#:[id number] Piperacillin-Tazobactam 3 200 .375 gm In Sodium Chloride 0.9% 100 ml @ 25 mls/hr IVPB Q8H [facility] Rx#: [id number] Oral 480 354 Other: Voiding Method Toilet Toilet - Labs CBC & Chem 7: 01/21/21 05:42 01/21/21 05:42 Labs: Abnormal Lab Results - Last 24 Hours (Table) 01/21/21 01/21/21 01/22/21 Range/Units 17:11 20:25 07:45 POC Glucose (mg/dL) 182 H 214 H 175 H (75-99) mg/dL 01/22/21 Range/Units 12:11 POC Glucose (mg/dL) 214 H (75-99) mg/dL Microbiology - Last 24 Hours (Table) 01/15/21 18:11 Blood Culture - Final Blood No Growth after 144 hours
--- NOTE | 2021-01-22 13:07 | P.PN ---
Subjective Progress Note Date: 01/22/21 This is a pleasant 55 years old male with past medical history of morbid obesity status post lap band. Presents with signs and symptoms of sepsis secondary to lap band infection. He presents with abdominal pain with low-grade fever of 100 on admission. He has CT of the abdomen and pelvis showing possible infection. Patient status post exploratory laparotomy on 01/14 with removal of the lap band device and gastrorrhaphy. Currently lying in bed comfortable. Patient was started today on liquid diet by surgery team. Vitals are stable. Leukocytosis is improving. Patient remains on Zosyn and eraxis and normal saline at 60 mL per hour 01/20/2021 Patient remains fully awake and oriented. He developed some abdominal pain after liquid diet is a started by surgery team. However patient is willing to keep him on liquid diet. We will keep monitoring. Continue with symptomatic treatment. His leukocytosis is improved to 12.2. Continue with Zosyn, Eraxis and normal saline at 60 mL per hour. Monitor urine output. Surgery and ID team's on the case 01/21/2021 Patient is seen and evaluated in follow-up this morning no acute overnight issues. Patient did have indwelling Vang catheter removed and is concerned with a possible lesion noted on the tip of the penis and infectious disease foll owing the patient is maintained on IV Zosyn along with antifungal Anidulafungin daily. Some mild hematuria noted and hemoglobin is stable at 12.0. Urine cultures are negative and patient denies any burning with urination. Patient is continued on full liquids per surgery recommendations and tolerating with no reports of nausea and vomiting noted. Recommend repeat labs in the morning. 01/22/2021 Patient is seen in follow-up this morning having some redness and warmth at the bottom of the incision site. Patient states this is new and was less reddened yesterday. Surgical site is dry and intact with yaquelin noted and no obvious drainage or purulence noted. Following closely with surgery and patient is also being followed closely by infectious disease and maintained on IV antibiotics a long with antifungal medications. Patient states that hematuria has improved and is voiding with no burning or pain with urination. a.m. labs are pending. Patient is continued on full liquid diet and tolerating with no reports of nausea or vomiting noted. Patient is passing gas and having bowel movements. per infectious disease patient will likely require IV antibiotics on discharge and will consult case management for home care and discharge planning needs. encouraged increased activity as tolerated and continue with incentive spirometer use. Labs: labs are pending for this morning and will follow-up Review of systems: Constitutional: No reports of fatigue, fever, or chills Cardiovascular: No reports of chest pain or palpitations Respiratory: No reports of shortness of breath or cough GI: No reports of nausea, vomiting, or diarrhea, reports some redness and warmth at the bottom of the surgical site : No reports of dysuria or retention Neurovascular: No reports of weakness or numbness All medications have been reviewed Active Medications Acetaminophen (Acetaminophen Tab 325 Mg Tab) 650 mg PO Q6HR PRN PRN Reason: Mild Pain or Fever > 100.5 Last Admin: 01/10/21 01:51 Dose: 650 mg Documented by: Hydrocodone Bitart/Acetaminophen (Hydrocodone/Apap 5-325mg 1 Each Tab) 1 each PO Q4HR PRN PRN Reason: Pain Last Admin: 01/22/21 04:03 Dose: 1 each Documented by: Apixaban (Apixaban 5 Mg Tab) 5 mg PO BID [facility]; Protocol Aspirin (Aspirin 81 Mg) 81 mg PO DAILY [facility] Last Admin: 01/22/21 07:58 Dose: 81 mg Documented by: Atorvastatin Calcium (Atorvastatin 20 Mg Tab) 20 mg PO DAILY [facility] Last Admin: 01/22/21 07:58 Dose: 20 mg Documented by: Bupropion HCl (Bupropion Xl 150 Mg Tab.Er.24h) 150 mg PO DAILY [facility] Last Admin: 01/22/21 07:59 Dose: 150 mg Documented by: Chlorthalidone (Chlorthalidone 25 Mg Tab) 25 mg PO DAILY [facility] Last Admin: 01/22/21 07:59 Dose: 25 mg Documented by: Cholecalciferol (Cholecalciferol 25 Mcg (1000 Iu) Tablet) 25 mcg PO DAILY [facility] Last Admin: 01/22/21 07:58 Dose: 25 mcg Documented by: Diltiazem HCl (Diltiazem Cd 120 Mg Cap.Er.24h) 120 mg PO DAILY [facility] Last Admin: 01/22/21 07:59 Dose: 120 mg Documented by: Ezetimibe (Ezetimibe 10 Mg Tab) 10 mg PO DAILY [facility] Last Admin: 01/22/21 07:59 Dose: 10 mg Documented by: Hydralazine HCl (Hydralazine Hcl 50 Mg Tab) 50 mg PO BID [facility] Last Admin: 01/22/21 07:59 Dose: 50 mg Documented by: Hydralazine HCl (Hydralazine Hcl 20 Mg/Ml 1 Ml Vial) 10 mg IVP Q4HR PRN PRN Reason: Blood Pressure - High Last Admin: 01/17/21 08:40 Dose: 10 mg Documented by: Hydromorphone HCl (Hydromorphone 1 Mg/Ml 1 Ml Syringe) 1 mg IVP Q3HR PRN PRN Reason: Severe Pain Last Admin: 01/22/21 04:02 Dose: 1 mg Documented by: Hydromorphone HCl (Hydromorphone 1 Mg/Ml 1 Ml Syringe) 1 mg IVP Q3HR PRN PRN Reason: Moderate Pain Last Admin: 01/21/21 21:52 Dose: 1 mg Documented by: Sodium Chloride (Saline 0.9%) 1,000 mls @ 60 mls/hr IV .[id number] [facility] Last Admin: 01/22/21 02:40 Dose: Not Given Documented by: Anidulafungin 100 mg/ Sodium (Chloride) 100 mls @ 84 mls/hr IVPB DAILY [facility] Last Admin: 01/22/21 10:11 Dose: 84 mls/hr Documented by: Piperacillin Sod/Tazobactam (Sod 3.375 gm/ Sodium Chloride) 100 mls @ 25 mls/hr IVPB Q8H [facility] Last Admin: 01/22/21 12:36 Dose: 25 mls/hr Documented by: Insulin Aspart (Insulin Aspart (Novolog) 100 Unit/Ml Vial) 0 unit SQ ACHS [facility]; Protocol Last Admin: 01/22/21 12:17 Dose: 4 unit Documented by: Lidocaine HCl (Lidocaine 1% (10mg/Ml) For Iv Start) 0.1 ml INTRADERMA PER PROTOCOL PRN PRN Reason: IV Start Lisinopril (Lisinopril 20 Mg Tab) 20 mg PO DAILY [facility] Last Admin: 01/22/21 07:58 Dose: 20 mg Documented by: Magnesium Oxide (Magnesium Oxide 400 Mg Tab) 400 mg PO DAILY [facility] Last Admin: 01/22/21 07:58 Dose: 400 mg Documented by: Metoclopramide HCl (Metoclopramide 5 Mg/Ml 2 Ml Vial) 10 mg IVP Q6H PRN PRN Reason: Nausea And Vomiting Metoprolol Tartrate (Metoprolol Tartrate 50 Mg Tab) 50 mg PO BID [facility] Last Admin: 01/22/21 07:58 Dose: 50 mg Documented by: Multivitamins (Multivitamins, Thera 1 Each Tab) 1 each PO DAILY [facility] Last Admin: 01/22/21 07:58 Dose: 1 each Documented by: Naloxone HCl (Naloxone 0.4 Mg/Ml 1 Ml Vial) 0.2 mg IV Q2M PRN PRN Reason: Opioid Reversal Ondansetron HCl (Ondansetron 4 Mg/2 Ml Vial) 4 mg IVP Q8HR PRN PRN Reason: Nausea And Vomiting Ondansetron HCl (Ondansetron 4 Mg/2 Ml Vial) 4 mg IVP Q6HR PRN PRN Reason: Nausea And Vomiting Pantoprazole Sodium (Pantoprazole 40 Mg/10 Ml Vial) 40 mg IVP DAILY [facility] Last Admin: 01/22/21 07:56 Dose: 40 mg Documented by: Sotalol HCl (Sotalol 120 Mg Tab) 240 mg PO BID-W/MEALS [facility] Last Admin: 01/22/21 07:59 Dose: 240 mg Documented by: Tamsulosin HCl (Tamsulosin 0.4 Mg Cap.Er.24h) 0.4 mg PO PC-BRKFST [facility] Last Admin: 01/22/21 07:58 Dose: 0.4 mg Documented by: Physical exam: GENERAL: The patient is alert and oriented x3, not in any acute distress. Well morbidly obese HEENT: Pupils are round and equally reacting to light. EOMI. No scleral icterus. No conjunctival pallor. Normocephalic, atraumatic. No pharyngeal erythema. No thyromegaly. CARDIOVASCULAR: S1 and S2 present. No murmurs, rubs, or gallops. PULMONARY: Chest is clear to auscultation, no wheezing or crackles. ABDOMEN: Soft, nontender, nondistended, normoactive bowel sounds. No palpable organomegaly. Surgical wounds closed and intact MUSCULOSKELETAL: No joint swelling or deformity. EXTREMITIES: No cyanosis, clubbing, or pedal edema. NEUROLOGICAL: Gross neurological examination did not reveal any focal deficits. SKIN: No rashes. no petechiae. redness and warmth noted at the base of the surgical site mid abdomen, yaquelin are noted to be dry and intact with no drainage, bleeding noted Assessment: Sepsis secondary to lap band infection status post exploratory laparotomy and removal of the lap band device and gastrorrhaphy Morbid obesity Chronic diastolic CHF Plan: This is a pleasant 55 years old male who presents with lap band infection status post laparotomy and removal of device and gastric repair Continue with Zosyn and eraxis, infectious disease to evaluate surgical site with some redness and warmth at the base of the site with no drainage noted and yaquelin are intact with no surrounding drainage or purulence noted Advance diet as tolerated per surgery team will follow the case closely, continued on full liquids and tolerating ID team following Continue with gentle hydration Labs and medication were reviewed.. Continue same treatment. Continue with symptomatic treatment. Resume home medication. Monitor lytes and vitals. DVT and GI prophylaxis. Further recommendationsas per clinical course of the patient DVT prophylaxis: Subcutaneous Lovenox GI Prophylaxis: Ppi consult to case management for home care and possible IV antibiotic therapy on discharge Encouraged increased activity as tolerated and continued incentive spirometer use Will continue to follow along with surgery during hospitalization. Thank you for this consultation. Objective - Vital Signs Vital signs: Vital Signs Temp 98.3 F 01/22/21 00:36 Pulse 56 L 01/22/21 00:36 Resp 16 01/22/21 00:36 BP 142/73 01/22/21 00:36 Pulse Ox 96 01/22/21 00:36 Intake & Output 01/21/21 01/22/21 01/22/21 18:59 06:59 18:59 Intake Total 480 680 Balance 480 680 Intake: Intake, IV Titration 680 Amount Lactated Ringers 1,000 ml 480 @ 0 mls/hr IV [facility] Rx#:[id number] Piperacillin-Tazobactam 3 200 .375 gm In Sodium Chloride 0.9% 100 ml @ 25 mls/hr IVPB Q8H [facility] Rx#: [id number] Oral 480 Other: Voiding Method Toilet - Labs CBC & Chem 7: 01/21/21 05:42 01/21/21 05:42 Labs: Abnormal Lab Results - Last 24 Hours (Table) 01/21/21 01/21/21 01/21/21 Range/Units 05:42 05:42 05:42 WBC 11.49 H (4.50-10.00) X 10*3/uL RBC 4.28 L (4.40-5.60) X 10*6/uL Hgb 12.0 L (13.0-17.0) g/dL Hct 38.9 L (39.6-50.0) % MCHC 30.8 L (32.0-37.0) g/dL Immature Gran # 0.07 H (0.00-0.04) X 10*3/uL Neutrophils # 8.69 H (1.80-7.70) X 10*3/uL Monocytes # 1.23 H (0.20-1.00) X 10*3/uL Potassium 3.4 L (3.5-5.5) mmol/L Anion Gap 12.10 H (4.00-12.00) mmol/L Glucose 165 H (70-110) mg/dL POC Glucose (mg/dL) (75-99) mg/dL Calcium 8.2 L (8.7-10.3) mg/dL C-Reactive Protein 11.60 H (0.00-0.80) mg/dL Procalcitonin 0.17 H (0.02-0.09) ng/mL 01/21/21 01/21/21 01/21/21 Range/Units 12:24 17:11 20:25 WBC (4.50-10.00) X 10*3/uL RBC (4.40-5.60) X 10*6/uL Hgb (13.0-17.0) g/dL Hct (39.6-50.0) % MCHC (32.0-37.0) g/dL Immature Gran # (0.00-0.04) X 10*3/uL Neutrophils # (1.80-7.70) X 10*3/uL Monocytes # (0.20-1.00) X 10*3/uL Potassium (3.5-5.5) mmol/L Anion Gap (4.00-12.00) mmol/L Glucose (70-110) mg/dL POC Glucose (mg/dL) 217 H 182 H 214 H (75-99) mg/dL Calcium (8.7-10.3) mg/dL C-Reactive Protein (0.00-0.80) mg/dL Procalcitonin (0.02-0.09) ng/mL 01/22/21 Range/Units 07:45 WBC (4.50-10.00) X 10*3/uL RBC (4.40-5.60) X 10*6/uL Hgb (13.0-17.0) g/dL Hct (39.6-50.0) % MCHC (32.0-37.0) g/dL Immature Gran # (0.00-0.04) X 10*3/uL Neutrophils # (1.80-7.70) X 10*3/uL Monocytes # (0.20-1.00) X 10*3/uL Potassium (3.5-5.5) mmol/L Anion Gap (4.00-12.00) mmol/L Glucose (70-110) mg/dL POC Glucose (mg/dL) 175 H (75-99) mg/dL Calcium (8.7-10.3) mg/dL C-Reactive Protein (0.00-0.80) mg/dL Procalcitonin (0.02-0.09) ng/mL Microbiology - Last 24 Hours (Table) 01/15/21 18:11 Blood Culture - Final Blood No Growth after 144 hours
[2021-01-22 13:08] LABS: Basophils # (A) 0.08 X 10*3/uL (0.00-0.10); Basophils % (A) 0.7 %; Eosinophils # (A) 0.19 X 10*3/uL (0.04-0.35); Eosinophils % (A) 1.6 %; HCT 37.3 % (39.6-50.0); HGB 11.5 g/dL (13.0-17.0); Lymphocytes # (A) 1.19 X 10*3/uL (0.90-5.00); Lymphocytes % (A) 9.7 %; MCH 28.2 pg (27.0-32.0); MCHC 30.8 g/dL (32.0-37.0); MCV 91.4 fL (80.0-97.0); Mean Platelet Volume 11.5 fL (9.5-12.2); Monocytes % (A) 11.5 %; Neutrophils # (A) 9.24 X 10*3/uL (1.80-7.70); Neutrophils % (A) 75.6 %; Platelet Count 356 X 10*3/uL (140-440); RBC 4.08 X 10*6/uL (4.40-5.60); RDW 13.3 % (11.5-14.5); WBC 12.21 X 10*3/uL (4.50-10.00)
[2021-01-22 13:16] LABS: African American GFR (CKD) 110.9 (60.0-200.0); Anion Gap 12.9 mmol/L (4.00-12.00); BUN/Creat Ratio 10.93 Ratio (12.00-20.00); Blood Urea Nitrogen 9.5 mg/dL (9.0-27.0); Calcium 8.2 mg/dL (8.7-10.3); Non-African American GFR(CKD) 95.7 (60.0-200.0); Potassium 3.8 mmol/L (3.5-5.5)
[2021-01-22 17:26] LABS: Glucose,Whole Blood 210 mg/dL (75-99)
[2021-01-22 20:34] LABS: Glucose,Whole Blood 212 mg/dL (75-99)
[2021-01-22] MEDS ORDERED: APIXABAN 5 MG TAB PO SCH (21:00)
--- NOTE | 2021-01-22 23:40 | PN ---
PROGRESS NOTE DATE OF SERVICE: 01/22/2021 REASON FOR FOLLOWUP: Abdominal infection. INTERVAL HISTORY: The patient is afebrile. The patient is breathing comfortably. The patient has been complaining of more pain around his incision. No drainage, though. No chest pain, shortness of breath or cough. No vomiting or diarrhea. PHYSICAL EXAMINATION: Blood pressure 169/72 with a pulse of 52, temperature 98.2. He is 96% on room air. General description is a middle-aged male up in the chair in no distress. RESPIRATORY SYSTEM: Unlabored breathing. Clear to auscultation anteriorly. HEART: S1, S2. Regular rate and rhythm. ABDOMEN: Soft. Midline incision with erythema no drainage was noticed. LABS: Hemoglobin 11.5, white count 12.21, creatinine 0.9. DIAGNOSTIC IMPRESSION AND PLAN: Patient with a lap band infection in this patient who is status post removal of the infected lap band and did have , status post repair. Patient to continue with Zosyn and Eraxis. cellulitis will be monitored closely. May need drainage, depending on extent of cellulitis. Continue with supportive care. MMODL / IJN: [id number] /
[2021-01-23] MEDS: PIPERACILLIN-TAZOBACTAM 3.375 GM in SODIUM CHLORIDE 0.9% 100 ML IVPB SCH (05:04)
[2021-01-23] MEDS: HYDROcodone/APAP 5-325MG 1 EACH TAB PO PRN ×2 (05:08→19:51)
[2021-01-23 07:40] LABS: Glucose,Whole Blood 179 mg/dL (75-99)
[2021-01-23] MEDS: INSULIN ASPART (NovoLOG) 100 UNIT/ML VIAL SQ SCH ×4 (08:47→21:01)
[2021-01-23] MEDS: SOTALOL 120 MG TAB PO SCH ×2 (08:48→20:34)
[2021-01-23] MEDS: ASPIRIN 81 MG PO SCH (08:49)
[2021-01-23] MEDS: buPROPion XL 150 MG TAB.ER.24H PO SCH (08:49)
[2021-01-23] MEDS: ATORVASTATIN 20 MG TAB PO SCH (08:49)
[2021-01-23] MEDS: TAMSULOSIN 0.4 MG CAP.ER.24H PO SCH (08:49)
[2021-01-23] MEDS: CHOLECALCIFEROL 25 MCG (1000 IU) TABLET PO SCH (08:50)
[2021-01-23] MEDS: CHLORTHALIDONE 25 MG TAB PO SCH (08:50)
[2021-01-23] MEDS: DILTIAZEM CD 120 MG CAP.ER.24H PO SCH (08:50)
[2021-01-23] MEDS: EZETIMIBE 10 MG TAB PO SCH (08:51)
[2021-01-23] MEDS: hydrALAZINE HCL 50 MG TAB PO SCH ×2 (08:51→21:45)
[2021-01-23] MEDS: PANTOPRAZOLE 40 MG/10 ML VIAL IVP SCH (08:52)
[2021-01-23] MEDS: MAGNESIUM OXIDE 400 MG TAB PO SCH (08:52)
[2021-01-23] MEDS: MULTIVITAMINS, THERA 1 EACH TAB PO SCH (08:52)
[2021-01-23] MEDS: lisinopriL 20 MG TAB PO SCH (08:52)
[2021-01-23] MEDS: METOPROLOL TARTRATE 50 MG TAB PO SCH ×2 (08:52→21:45)
[2021-01-23] MEDS: HYDROmorphone 1 MG/ML 1 ML SYRINGE IVP PRN ×3 (08:53→20:33)
[2021-01-23] MEDS ORDERED: HEPARIN SODIUM,PORCINE/PF 5,000 UNIT/0.5 ML SYRINGE SQ SCH (09:00)
[2021-01-23 10:12] LABS: Basophils # (A) 0.07 X 10*3/uL (0.00-0.10); Basophils % (A) 0.6 %; Eosinophils # (A) 0.15 X 10*3/uL (0.04-0.35); Eosinophils % (A) 1.4 %; HCT 38.5 % (39.6-50.0); HGB 12.1 g/dL (13.0-17.0); Lymphocytes # (A) 0.97 X 10*3/uL (0.90-5.00); Lymphocytes % (A) 8.8 %; MCH 28.4 pg (27.0-32.0); MCHC 31.4 g/dL (32.0-37.0); MCV 90.4 fL (80.0-97.0); Mean Platelet Volume 11.4 fL (9.5-12.2); Monocytes # (A) 1.18 X 10*3/uL (0.20-1.00); Monocytes % (A) 10.7 %; Neutrophils # (A) 8.52 X 10*3/uL (1.80-7.70); Neutrophils % (A) 77.7 %; Platelet Count 358 X 10*3/uL (140-440); RBC 4.26 X 10*6/uL (4.40-5.60); RDW 13.4 % (11.5-14.5); WBC 10.98 X 10*3/uL (4.50-10.00)
[2021-01-23 10:54] LABS: African American GFR (CKD) 114.9 (60.0-200.0); Anion Gap 11.6 mmol/L (4.00-12.00); BUN/Creat Ratio 9.38 Ratio (12.00-20.00); Blood Urea Nitrogen 7.5 mg/dL (9.0-27.0); Calcium 8.3 mg/dL (8.7-10.3); Carbon Dioxide 27.4 mmol/L (21.6-31.8); Non-African American GFR(CKD) 99.2 (60.0-200.0); Potassium 3.6 mmol/L (3.5-5.5)
[2021-01-23 12:38] LABS: Glucose,Whole Blood 175 mg/dL (75-99)
--- NOTE | 2021-01-23 13:36 | P.PN ---
Subjective Progress Note Date: 01/23/21 CHIEF COMPLAINT: Lap band port infection HISTORY OF PRESENT ILLNESS: Patient is status post diagnostic laparoscopy, exploratory laparotomy, removal of lap band device and gastrorrhaphy POD #9. Patient complaining of pain on the lower right of his incision. He is also had increase in erythema along the incision. Patient reports that his pain is controlled. He is having flatus and BM. He is tolerating diet. Afebrile. WBC 10.98 hemoglobin 12.1 platelets 358 PHYSICAL EXAM: VITAL SIGNS: Reviewed. GENERAL: Well-developed in no acute distress. HEENT: No sclera icterus. Extraocular movements grossly intact. Moist buccal mucosa. Head is atraumatic, normocephalic. ABDOMEN: Soft. Nondistended. Incision site with increase erythema. No drainage. Tenderness to palpation of the lower incision. Area of induration noted in the lower right part of the incision DENA drain was minimal sanguineous output. NEUROLOGIC: Alert and oriented. Cranial nerves II through XII grossly intact. ASSESSMENT: 1. Erosion of lap band and adhesions. Status post diagnostic laparoscopy, exploratory laparotomy, removal of lap band device and gastrorrhaphy on 01/14/2021 2. Infected lap band port status post lap band port removal on 01/07/2021 3. Leukocytosis 4. Urinary retention resolved 5. Hypokalemia resolved 6. Incisional cellulitis PLAN: -Continue antibiotics and antifungals per ID -3 Nessa removed from the distal incision. No drainage expressed -Patient is not ready for discharge. He has had worsening of the cellulitis at the incision site. -Continue full liquids -Continue pain medication as needed -GI prophylaxis Protonix and DVT prophylaxis Lovenox Physician [employer] Manager note has been reviewed by physician. Signing provider agrees with the documented findings, assessment, and plan of care. Objective - Vital Signs Vital signs: Vital Signs Temp 98.2 F 01/23/21 00:35 Pulse 55 L 01/23/21 00:35 Resp 18 01/23/21 07:32 BP 162/71 01/23/21 07:32 Pulse Ox 95 01/23/21 07:32 Intake & Output 01/22/21 01/23/21 01/23/21 18:59 06:59 18:59 Intake Total 1070 Output Total 25 Balance 1070 -25 Weight 139.7 kg Intake: IV 480 Anidulafungin 100 mg In 100 Sodium Chloride 0.9% 100 ml @ 84 mls/hr IVPB DAILY [facility] Rx#:[id number] Piperacillin-Tazobactam 3 200 .375 gm In Sodium Chloride 0.9% 100 ml @ 25 mls/hr IVPB Q8H [facility] Rx#: [id number] Sodium Chloride 0.9% 1, 180 000 ml @ 60 mls/hr IV . [id number] [facility] Rx#:[id number] Oral 590 Output: Drainage 25 Anterior Abdomen 25 Other: Voiding Method Toilet Toilet # Voids 0 - Labs CBC & Chem 7: 01/23/21 05:44 01/23/21 05:44 Labs: Abnormal Lab Results - Last 24 Hours (Table) 01/22/21 01/22/21 01/23/21 Range/Units 17:25 20:33 05:44 WBC 10.98 H (4.50-10.00) X 10*3/uL RBC 4.26 L (4.40-5.60) X 10*6/uL Hgb 12.1 L (13.0-17.0) g/dL Hct 38.5 L (39.6-50.0) % MCHC 31.4 L (32.0-37.0) g/dL Immature Gran # 0.09 H (0.00-0.04) X 10*3/uL Neutrophils # 8.52 H (1.80-7.70) X 10*3/uL Monocytes # 1.18 H (0.20-1.00) X 10*3/uL BUN (9.0-27.0) mg/dL BUN/Creatinine Ratio (12.00-20.00) Ratio Glucose (70-110) mg/dL POC Glucose (mg/dL) 210 H 212 H (75-99) mg/dL Calcium (8.7-10.3) mg/dL 01/23/21 01/23/21 01/23/21 Range/Units 05:44 07:29 12:26 WBC (4.50-10.00) X 10*3/uL RBC (4.40-5.60) X 10*6/uL Hgb (13.0-17.0) g/dL Hct (39.6-50.0) % MCHC (32.0-37.0) g/dL Immature Gran # (0.00-0.04) X 10*3/uL Neutrophils # (1.80-7.70) X 10*3/uL Monocytes # (0.20-1.00) X 10*3/uL BUN 7.5 L (9.0-27.0) mg/dL BUN/Creatinine Ratio 9.38 L (12.00-20.00) Ratio Glucose 172 H (70-110) mg/dL POC Glucose (mg/dL) 179 H 175 H (75-99) mg/dL Calcium 8.3 L (8.7-10.3) mg/dL Microbiology - Last 24 Hours (Table) 01/07/21 12:00 Fungal Culture - Preliminary Other - Other
[2021-01-23] MEDS ORDERED: VANCOMYCIN IV PER PHARMACY 1 EACH MISC MISCELLANE PRN (14:45)
--- NOTE | 2021-01-23 15:40 | P.PN ---
Subjective Progress Note Date: 01/23/21 This is a pleasant 55 years old male with past medical history of morbid obesity status post lap band. Presents with signs and symptoms of sepsis secondary to lap band infection. He presents with abdominal pain with low-grade fever of 100 on admission. He has CT of the abdomen and pelvis showing possible infection. Patient status post exploratory laparotomy on 01/14 with removal of the lap band device and gastrorrhaphy. Currently lying in bed comfortable. Patient was started today on liquid diet by surgery team. Vitals are stable. Leukocytosis is improving. Patient remains on Zosyn and eraxis and normal saline at 60 mL per hour 01/20/2021 Patient remains fully awake and oriented. He developed some abdominal pain after liquid diet is a started by surgery team. However patient is willing to keep him on liquid diet. We will keep monitoring. Continue with symptomatic treatment. His leukocytosis is improved to 12.2. Continue with Zosyn, Eraxis and normal saline at 60 mL per hour. Monitor urine output. Surgery and ID team's on the case 01/21/2021 Patient is seen and evaluated in follow-up this morning no acute overnight issues. Patient did have indwelling Vang catheter removed and is concerned with a possible lesion noted on the tip of the penis and infectious disease foll owing the patient is maintained on IV Zosyn along with antifungal Anidulafungin daily. Some mild hematuria noted and hemoglobin is stable at 12.0. Urine cultures are negative and patient denies any burning with urination. Patient is continued on full liquids per surgery recommendations and tolerating with no reports of nausea and vomiting noted. Recommend repeat labs in the morning. 01/22/2021 Patient is seen in follow-up this morning having some redness and warmth at the bottom of the incision site. Patient states this is new and was less reddened yesterday. Surgical site is dry and intact with yaquelin noted and no obvious drainage or purulence noted. Following closely with surgery and patient is also being followed closely by infectious disease and maintained on IV antibiotics a long with antifungal medications. Patient states that hematuria has improved and is voiding with no burning or pain with urination. a.m. labs are pending. Patient is continued on full liquid diet and tolerating with no reports of nausea or vomiting noted. Patient is passing gas and having bowel movements. per infectious disease patient will likely require IV antibiotics on discharge and will consult case management for home care and discharge planning needs. encouraged increased activity as tolerated and continue with incentive spirometer use. 01/23/2021 Patient is seen and evaluated in follow-up this morning with continued redness along the bottom of the incision site and much more indurated and tender to touch. Infectious disease following closely and antibiotics being switched to v ancomycin along with continued antifungals. Discussed with surgery and okay to resume Eliquis history of A. fib and will discontinue subcutaneous heparin. Patient reports to tolerating diet with no reports of nausea or vomiting noted and is having flatus and bowel movements. surgical site has been marked with a marker to monitor closely for any worsening redness or induration. Labs: white blood count is 10.98, hemoglobin is 12.1, platelets are 358, sodium is 136, potassium is 3.6, BUN is 7.5 and current creatinine is 0.8, calcium is 8.3. Review of systems: Constitutional: No reports of fatigue, fever, or chills Cardiovascular: No reports of chest pain or palpitations Respiratory: No reports of shortness of breath or cough GI: No reports of nausea, vomiting, or diarrhea, reports continued redness and warmth at the bottom of the surgical site which has worsened : No reports of dysuria or retention Neurovascular: No reports of weakness or numbness All medications have been reviewed Active Medications Acetaminophen (Acetaminophen Tab 325 Mg Tab) 650 mg PO Q6HR PRN PRN Reason: Mild Pain or Fever > 100.5 Last Admin: 01/10/21 01:51 Dose: 650 mg Documented by: Hydrocodone Bitart/Acetaminophen (Hydrocodone/Apap 5-325mg 1 Each Tab) 1 each PO Q4HR PRN PRN Reason: Pain Last Admin: 01/23/21 05:08 Dose: 1 each Documented by: Apixaban (Apixaban 5 Mg Tab) 5 mg PO BID [facility] [place]; Protocol Aspirin (Aspirin 81 Mg) 81 mg PO DAILY [facility] [place] Last Admin: 01/23/21 08:49 Dose: 81 mg Documented by: Atorvastatin Calcium (Atorvastatin 20 Mg Tab) 20 mg PO DAILY [facility] [place] Last Admin: 01/23/21 08:49 Dose: 20 mg Documented by: Bupropion HCl (Bupropion Xl 150 Mg Tab.Er.24h) 150 mg PO DAILY [facility] [place] Last Admin: 01/23/21 08:49 Dose: 150 mg Documented by: Chlorthalidone (Chlorthalidone 25 Mg Tab) 25 mg PO DAILY [facility] [place] Last Admin: 01/23/21 08:50 Dose: 25 mg Documented by: Cholecalciferol (Cholecalciferol 25 Mcg (1000 Iu) Tablet) 25 mcg PO DAILY [facility] [place] Last Admin: 01/23/21 08:50 Dose: 25 mcg Documented by: Diltiazem HCl (Diltiazem Cd 120 Mg Cap.Er.24h) 120 mg PO DAILY [facility] [place] Last Admin: 01/23/21 08:50 Dose: 120 mg Documented by: Ezetimibe (Ezetimibe 10 Mg Tab) 10 mg PO DAILY [facility] [place] Last Admin: 01/23/21 08:51 Dose: 10 mg Documented by: Hydralazine HCl (Hydralazine Hcl 50 Mg Tab) 50 mg PO BID [facility] [place] Last Admin: 01/23/21 08:51 Dose: 50 mg Documented by: Hydralazine HCl (Hydralazine Hcl 20 Mg/Ml 1 Ml Vial) 10 mg IVP Q4HR PRN PRN Reason: Blood Pressure - High Last Admin: 01/17/21 08:40 Dose: 10 mg Documented by: Hydromorphone HCl (Hydromorphone 1 Mg/Ml 1 Ml Syringe) 1 mg IVP Q3HR PRN PRN Reason: Moderate Pain Last Admin: 01/23/21 08:53 Dose: 1 mg Documented by: Sodium Chloride (Saline 0.9%) 1,000 mls @ 60 mls/hr IV .[id number] [facility] [place] Last Admin: 01/22/21 17:30 Dose: 60 mls/hr Documented by: Anidulafungin 100 mg/ Sodium (Chloride) 100 mls @ 84 mls/hr IVPB DAILY@1200 [facility] [place] Vancomycin HCl 2,000 mg/ (Sodium Chloride) 500 mls @ 167 mls/hr IVPB Q12H [facility] [place] Insulin Aspart (Insulin Aspart (Novolog) 100 Unit/Ml Vial) 0 unit SQ ACHS [facility] [place]; Protocol Last Admin: 01/23/21 14:15 Dose: Not Given Documented by: Lidocaine HCl (Lidocaine 1% (10mg/Ml) For Iv Start) 0.1 ml INTRADERMA PER PROTOCOL PRN PRN Reason: IV Start Lisinopril (Lisinopril 20 Mg Tab) 20 mg PO DAILY [facility] [place] Last Admin: 01/23/21 08:52 Dose: 20 mg Documented by: Magnesium Oxide (Magnesium Oxide 400 Mg Tab) 400 mg PO DAILY [facility] [place] Last Admin: 01/23/21 08:52 Dose: 400 mg Documented by: Metoclopramide HCl (Metoclopramide 5 Mg/Ml 2 Ml Vial) 10 mg IVP Q6H PRN PRN Reason: Nausea And Vomiting Metoprolol Tartrate (Metoprolol Tartrate 50 Mg Tab) 50 mg PO BID [facility] [place] Last Admin: 01/23/21 08:52 Dose: 50 mg Documented by: Multivitamins (Multivitamins, Thera 1 Each Tab) 1 each PO DAILY [facility] [place] Last Admin: 01/23/21 08:52 Dose: 1 each Documented by: Naloxone HCl (Naloxone 0.4 Mg/Ml 1 Ml Vial) 0.2 mg IV Q2M PRN PRN Reason: Opioid Reversal Ondansetron HCl (Ondansetron 4 Mg/2 Ml Vial) 4 mg IVP Q8HR PRN PRN Reason: Nausea And Vomiting Ondansetron HCl (Ondansetron 4 Mg/2 Ml Vial) 4 mg IVP Q6HR PRN PRN Reason: Nausea And Vomiting Pantoprazole Sodium (Pantoprazole 40 Mg Tablet) 40 mg PO -[facility] Sotalol HCl (Sotalol 120 Mg Tab) 240 mg PO BID-W/MEALS [facility] [place] Last Admin: 01/23/21 08:48 Dose: 240 mg Documented by: Tamsulosin HCl (Tamsulosin 0.4 Mg Cap.Er.24h) 0.4 mg PO -[facility] Last Admin: 01/23/21 08:49 Dose: 0.4 mg Documented by: Physical exam: GENERAL: The patient is alert and oriented x3, not in any acute distress. Well morbidly obese HEENT: Pupils are round and equally reacting to light. EOMI. No scleral icterus. No conjunctival pallor. Normocephalic, atraumatic. No pharyngeal erythema. No thyromegaly. CARDIOVASCULAR: S1 and S2 present. No murmurs, rubs, or gallops. PULMONARY: Chest is clear to auscultation, no wheezing or crackles. ABDOMEN: Soft, nontender, nondistended, normoactive bowel sounds. No palpable organomegaly. Surgical wounds closed and intact MUSCULOSKELETAL: No joint swelling or deformity. EXTREMITIES: No cyanosis, clubbing, or pedal edema. NEUROLOGICAL: Gross neurological examination did not reveal any focal deficits. SKIN: No rashes. no petechiae. redness and warmth noted at the base of the surgical site mid abdomen, yaquelin are noted to be dry and intact with no drainage, no bleeding noted, induration has worsened around the surgical site with marker noted around the redness and induration Assessment: Sepsis secondary to lap band infection status post exploratory laparotomy and removal of the lap band device and gastrorrhaphy Morbid obesity Chronic diastolic CHF history of atrial fibrillation DVT prophylaxis resuming eliquis Full code Plan: This is a pleasant 55 years old male who presents with lap band infection status post laparotomy and removal of device and gastric repair Continue with IV vancomycin and eraxis, infectious disease following and has marked the surgical site as the redness has worsened and has become more indurated and tender at the base of the site with no drainage noted and yaquelin are intact with no surrounding drainage or purulence noted Advance diet as tolerated per surgery team will follow the case closely, continued on full liquids and tolerating ID team following Continue with gentle hydration Labs and medication were reviewed.. Continue same treatment. Continue with symptomatic treatment. Resume home medication. Monitor lytes and vitals. DVT and GI prophylaxis. Further recommendationsas per clinical course of the patient DVT prophylaxis: have resumed oral Eliquis GI Prophylaxis: Ppi consult to case management for home care and possible IV antibiotic therapy on discharge Encouraged increased activity as tolerated and continued incentive spirometer use Will continue to follow along with surgery during hospitalization. Thank you f or this consultation. Objective - Vital Signs Vital signs: Vital Signs Temp 98.2 F 01/23/21 00:35 Pulse 55 L 01/23/21 00:35 Resp 18 01/23/21 07:32 BP 162/71 01/23/21 07:32 Pulse Ox 95 01/23/21 07:32 Intake & Output 01/22/21 01/23/21 01/23/21 18:59 06:59 18:59 Intake Total 1070 120 Output Total 25 Balance 1070 -25 120 Weight 139.7 kg Intake: IV 480 Anidulafungin 100 mg In 100 Sodium Chloride 0.9% 100 ml @ 84 mls/hr IVPB DAILY [facility] [place] Rx#:[id number] Piperacillin-Tazobactam 3 200 .375 gm In Sodium Chloride 0.9% 100 ml @ 25 mls/hr IVPB Q8H [facility] Rx#: [id number] Sodium Chloride 0.9% 1, 180 000 ml @ 60 mls/hr IV . [id number] [facility] [place] Rx#:[id number] Oral 590 120 Output: Drainage 25 Anterior Abdomen 25 Other: Voiding Method Toilet Toilet # Voids 0 - Labs CBC & Chem 7: 01/23/21 05:44 01/23/21 05:44 Labs: Abnormal Lab Results - Last 24 Hours (Table) 01/22/21 01/22/21 01/23/21 Range/Units 17:25 20:33 05:44 WBC 10.98 H (4.50-10.00) X 10*3/uL RBC 4.26 L (4.40-5.60) X 10*6/uL Hgb 12.1 L (13.0-17.0) g/dL Hct 38.5 L (39.6-50.0) % MCHC 31.4 L (32.0-37.0) g/dL Immature Gran # 0.09 H (0.00-0.04) X 10*3/uL Neutrophils # 8.52 H (1.80-7.70) X 10*3/uL Monocytes # 1.18 H (0.20-1.00) X 10*3/uL BUN (9.0-27.0) mg/dL BUN/Creatinine Ratio (12.00-20.00) Ratio Glucose (70-110) mg/dL POC Glucose (mg/dL) 210 H 212 H (75-99) mg/dL Calcium (8.7-10.3) mg/dL 01/23/21 01/23/21 01/23/21 Range/Units 05:44 07:29 12:26 WBC (4.50-10.00) X 10*3/uL RBC (4.40-5.60) X 10*6/uL Hgb (13.0-17.0) g/dL Hct (39.6-50.0) % MCHC (32.0-37.0) g/dL Immature Gran # (0.00-0.04) X 10*3/uL Neutrophils # (1.80-7.70) X 10*3/uL Monocytes # (0.20-1.00) X 10*3/uL BUN 7.5 L (9.0-27.0) mg/dL BUN/Creatinine Ratio 9.38 L (12.00-20.00) Ratio Glucose 172 H (70-110) mg/dL POC Glucose (mg/dL) 179 H 175 H (75-99) mg/dL Calcium 8.3 L (8.7-10.3) mg/dL Microbiology - Last 24 Hours (Table) 01/07/21 12:00 Fungal Culture - Preliminary Other - Other
[2021-01-23] MEDS ORDERED: PIPERACILLIN-TAZOBACTAM 3.375 GM in SODIUM CHLORIDE 0.9% 100 ML IVPB SCH (16:00)
[2021-01-23] MEDS: SODIUM CHLORIDE 0.9% 1,000 ML IV SCH (16:49)
[2021-01-23] MEDS: ANIDULAFUNGIN 100 MG in SODIUM CHLORIDE 0.9% 100 ML IVPB SCH (16:49)
[2021-01-23] MEDS: VANCOMYCIN 2,000 MG in SODIUM CHLORIDE 0.9% 500 ML 500 ML IVPB SCH (19:54)
[2021-01-23] MEDS: APIXABAN 5 MG TAB PO SCH (20:40)
[2021-01-23 20:43] LABS: Glucose,Whole Blood 211 mg/dL (75-99)
--- NOTE | 2021-01-23 23:02 | PN ---
PROGRESS NOTE DATE OF SERVICE: 01/23/2021 REASON FOR FOLLOWUP: Incision cellulitis and leukocytosis. INTERVAL HISTORY: The patient is afebrile. The patient is breathing comfortably. The patient did mention that 3 of the stitches were removed from the of the incision. However, there is no drainage. The area felt hard to him, but no worsening pain to the area. Denies any chest pain or shortness of breath or cough. No vomiting and no diarrhea. PHYSICAL EXAMINATION: Blood pressure 153/77 with a pulse of 73, temperature 98.2. He is 96% on room air. General description is a middle-aged male up in the bed in no distress. RESPIRATORY SYSTEM: Unlabored breathing. Clear to auscultation anteriorly. HEART: S1, S2. Regular rate and rhythm. ABDOMEN: Soft. Incision area still has significant amount of swelling, redness and induration, but no drainage. EXTREMITIES: No edema of the feet. LABS: White count is 10.98, creatinine 0.8. DIAGNOSTIC IMPRESSION AND PLAN: Patient with incisional cellulitis in this patient who is status post laparotomy for an infected lap band port, status post removal of the port and gastrorrhaphy. The patient has received adequate amount of Zosyn, now with development of the incision cellulitis. positive will add vancomycin and monitor clinical course closely. Continue with supportive care. MMODL / IJN: [id number] /
[2021-01-24] MEDS: HYDROcodone/APAP 5-325MG 1 EACH TAB PO PRN (02:10)
[2021-01-24] MEDS: HYDROmorphone 1 MG/ML 1 ML SYRINGE IVP PRN ×5 (02:11→22:37)
[2021-01-24] MEDS: SODIUM CHLORIDE 0.9% 1,000 ML IV SCH (04:17)
[2021-01-24] MEDS: VANCOMYCIN 2,000 MG in SODIUM CHLORIDE 0.9% 500 ML 500 ML IVPB SCH ×3 (08:10→22:27)
[2021-01-24 08:13] LABS: Glucose,Whole Blood 158 mg/dL (75-99)
[2021-01-24] MEDS: INSULIN ASPART (NovoLOG) 100 UNIT/ML VIAL SQ SCH ×4 (08:36→22:28)
[2021-01-24] MEDS: MULTIVITAMINS, THERA 1 EACH TAB PO SCH (08:37)
[2021-01-24] MEDS: MAGNESIUM OXIDE 400 MG TAB PO SCH (08:37)
[2021-01-24] MEDS: ASPIRIN 81 MG PO SCH (08:37)
[2021-01-24] MEDS: APIXABAN 5 MG TAB PO SCH ×2 (08:37→22:28)
[2021-01-24] MEDS: PANTOPRAZOLE 40 MG TABLET PO SCH (08:37)
[2021-01-24] MEDS: TAMSULOSIN 0.4 MG CAP.ER.24H PO SCH (08:37)
[2021-01-24] MEDS: ATORVASTATIN 20 MG TAB PO SCH (08:37)
[2021-01-24] MEDS: METOPROLOL TARTRATE 50 MG TAB PO SCH ×2 (08:37→22:28)
[2021-01-24] MEDS: CHOLECALCIFEROL 25 MCG (1000 IU) TABLET PO SCH (08:37)
[2021-01-24] MEDS: lisinopriL 20 MG TAB PO SCH (08:37)
[2021-01-24] MEDS: SOTALOL 120 MG TAB PO SCH ×2 (08:46→17:56)
[2021-01-24] MEDS: DILTIAZEM CD 120 MG CAP.ER.24H PO SCH (08:47)
[2021-01-24] MEDS: hydrALAZINE HCL 50 MG TAB PO SCH ×2 (08:47→22:28)
[2021-01-24] MEDS: buPROPion XL 150 MG TAB.ER.24H PO SCH (08:47)
[2021-01-24] MEDS: CHLORTHALIDONE 25 MG TAB PO SCH (08:47)
[2021-01-24 09:03] LABS: Basophils # (A) 0.06 X 10*3/uL (0.00-0.10); Basophils % (A) 0.6 %; Eosinophils % (A) 0.9 %; HCT 35.4 % (39.6-50.0); HGB 11.4 g/dL (13.0-17.0); Lymphocytes # (A) 0.99 X 10*3/uL (0.90-5.00); Lymphocytes % (A) 9.2 %; MCH 29.2 pg (27.0-32.0); MCHC 32.2 g/dL (32.0-37.0); MCV 90.5 fL (80.0-97.0); Mean Platelet Volume 11.8 fL (9.5-12.2); Monocytes # (A) 1.23 X 10*3/uL (0.20-1.00); Monocytes % (A) 11.5 %; Neutrophils # (A) 8.28 X 10*3/uL (1.80-7.70); Neutrophils % (A) 77.3 %; Platelet Count 316 X 10*3/uL (140-440); RBC 3.91 X 10*6/uL (4.40-5.60); RDW 13.3 % (11.5-14.5); WBC 10.71 X 10*3/uL (4.50-10.00)
[2021-01-24] MEDS: EZETIMIBE 10 MG TAB PO SCH (10:05)
--- NOTE | 2021-01-24 11:19 | P.PN ---
Progress Note - Text Progress Note Date: 01/24/21 Patient had some drainage of serous fluid through his incision last night. He otherwise feels well. On exam vitals are stable. Abdomen soft. Status post repair of gastric erosion from LAP-BAND. Patient will continue receiving local wound care. Looking IV antibiotic. We have increased his diet to regular diet and have hep-locked his IV
[2021-01-24 11:36] LABS: Glucose,Whole Blood 175 mg/dL (75-99)
[2021-01-24] MEDS: ANIDULAFUNGIN 100 MG in SODIUM CHLORIDE 0.9% 100 ML IVPB SCH (12:43)
[2021-01-24 17:27] LABS: Glucose,Whole Blood 178 mg/dL (75-99)
[2021-01-24 20:16] LABS: Glucose,Whole Blood 210 mg/dL (75-99)
--- NOTE | 2021-01-24 22:26 | PN ---
PROGRESS NOTE DATE OF SERVICE: 01/24/2021 REASON FOR FOLLOWUP: 1. Abdominal incision cellulitis. 2. Leukocytosis. INTERVAL HISTORY: The patient is afebrile. The patient did mention he did have slight drainage from the lower portion of the abdominal incision. The patient's abdominal pain and discomfort have slightly decreased. No chest pain, shortness of breath or cough. No abdominal pain or diarrhea. PHYSICAL EXAMINATION: Blood pressure 158/90 with a pulse of 69, temperature 97.9. He is 98% on room air. General description is a middle-aged male lying in bed in no distress. RESPIRATORY SYSTEM: Unlabored breathing. Clear to auscultation anteriorly. HEART: S1, S2. Regular rate and rhythm. ABDOMEN: Soft. The incisional redness is about the same. Minimal drainage. It was cultured. LABS: White count 10.71. DIAGNOSTIC IMPRESSION AND PLAN: Patient with an infected lap band port, status post removal of the port and gastrorrhaphy with evidence of elevated white count that responded to the Eraxis incisional cellulitis and drainage which has been cultured. The patient is covered with vancomycin. Antibiotic will be adjusted further on the basis of the culture report. Continue supportive care. MMODL / IJN: [id number] /
--- NOTE | 2021-01-24 22:45 | P.PN ---
Subjective This is a pleasant 55 years old male with past medical history of morbid obesity status post lap band. Presents with signs and symptoms of sepsis secondary to lap band infection. He presents with abdominal pain with low-grade fever of 100 on admission. He has CT of the abdomen and pelvis showing possible infection. Patient status post exploratory laparotomy on 01/14 with removal of the lap band device and gastrorrhaphy. Currently lying in bed comfortable. Patient was started today on liquid diet by surgery team. Vitals are stable. Leukocytosis is improving. Patient remains on Zosyn and eraxis and normal saline at 60 mL per hour 01/20/2021 Patient remains fully awake and oriented. He developed some abdominal pain after liquid diet is a started by surgery team. However patient is willing to keep him on liquid diet. We will keep monitoring. Continue with symptomatic treatment. His leukocytosis is improved to 12.2. Continue with Zosyn, Eraxis and normal saline at 60 mL per hour. Monitor urine output. Surgery and ID team's on the case 01/24/2021 Patient clinically is doing well however he developed an incisional cellulitis with surrounding erythema and some tenderness, and there was some mention of service discharge from the edge of the wound and the lower end. However there is no clear purulent discharge. He is hemodynamically stable. Afebrile. WBC is only mildly elevated at 10.7. And wound culture has been sent. Antibiotics has been adjusted to IV vancomycin on the top of his Eraxis. We'll monitor his creatinine and wound culture and other labs Eliquis restarted yesterday and hemoglobin stable. Follow-up tomorrow Objective - Vital Signs Vital signs: Vital Signs Temp 97.9 F 01/24/21 14:00 Pulse 69 01/24/21 14:00 Resp 18 01/24/21 14:00 BP 158/90 01/24/21 14:00 Pulse Ox 98 01/24/21 14:00 Intake & Output 01/23/21 01/24/21 01/24/21 18:59 06:59 18:59 Intake Total 240 180 Output Total 5 Balance 235 180 Intake: Oral 240 180 Output: Drainage 5 Anterior Abdomen 5 Other: # Voids 1 2 - Exam -GENERAL: The patient is alert and oriented x3, not in any acute distress. Well morbidly obese HEENT: Pupils are round and equally reacting to light. EOMI. No scleral icterus. No conjunctival pallor. Normocephalic, atraumatic. No pharyngeal erythema. No thyromegaly. CARDIOVASCULAR: S1 and S2 present. No murmurs, rubs, or gallops. PULMONARY: Chest is clear to auscultation, no wheezing or crackles. -ABDOMEN: Soft, nontender, nondistended, normoactive bowel sounds. No palpable organomegaly. Surgical wounds closed and in dressing is in place MUSCULOSKELETAL: No joint swelling or deformity. EXTREMITIES: No cyanosis, clubbing, or pedal edema. NEUROLOGICAL: Gross neurological examination did not reveal any focal deficits. SKIN: No rashes. no petechiae. - Labs CBC & Chem 7: 01/24/21 05:38 01/23/21 05:44 Labs: Abnormal Lab Results - Last 24 Hours (Table) 01/23/21 01/24/21 01/24/21 Range/Units 20:42 05:38 08:11 WBC 10.71 H (4.50-10.00) X 10*3/uL RBC 3.91 L (4.40-5.60) X 10*6/uL Hgb 11.4 L (13.0-17.0) g/dL Hct 35.4 L (39.6-50.0) % Immature Gran # 0.05 H (0.00-0.04) X 10*3/uL Neutrophils # 8.28 H (1.80-7.70) X 10*3/uL Monocytes # 1.23 H (0.20-1.00) X 10*3/uL POC Glucose (mg/dL) 211 H 158 H (75-99) mg/dL 01/24/21 Range/Units 11:36 WBC (4.50-10.00) X 10*3/uL RBC (4.40-5.60) X 10*6/uL Hgb (13.0-17.0) g/dL Hct (39.6-50.0) % Immature Gran # (0.00-0.04) X 10*3/uL Neutrophils # (1.80-7.70) X 10*3/uL Monocytes # (0.20-1.00) X 10*3/uL POC Glucose (mg/dL) 175 H (75-99) mg/dL Microbiology - Last 24 Hours (Table) 01/07/21 12:00 Fungal Culture - Preliminary Other - Other Assessment and Plan Assessment: Sepsis secondary to lap band infection status post exploratory laparotomy and removal of the lap band device and gastrorrhaphy incisional cellulitis Morbid obesity Chronic diastolic CHF History of paroxysmal A. fib on Eliquis at home, resumed Plan: This is a pleasant 55 years old male who presents with lap band infection status post laparotomy and removal of device and gastric repair Continue with IV vancomycin and eraxis. Follow-up wound culture Advance diet as tolerated per surgery team will follow the case closely ID team consult Continue with gentle hydration Labs and medication were reviewed.. Continue same treatment. Continue with symptomatic treatment. Resume home medication. Monitor lytes and vitals. DVT and GI prophylaxis. Further recommendations as per clinical course of the patient DVT prophylaxis Eliquis GI Prophylaxis: Ppi
[2021-01-25] MEDS: HYDROmorphone 1 MG/ML 1 ML SYRINGE IVP PRN ×3 (01:33→20:54)
[2021-01-25 07:23] LABS: ALT 29 U/L (4-49); AST 42 U/L (17-59); African American GFR (CKD) >90 (>60 ml/min/1.73 sqM); Albumin 2.5 g/dL (3.5-5.0); Albumin/Globulin Ratio 0.7; Alkaline Phosphatase 66 U/L (38-126); Anion Gap 7 mmol/L; Blood Urea Nitrogen 9 mg/dL (9-20); Calcium 8.7 mg/dL (8.4-10.2); Carbon Dioxide 32 mmol/L (22-30); Chloride 96 mmol/L (98-107); Globulin 3.5 g/dL; Glucose 159 mg/dL (74-99); Non-African American GFR(CKD) >90 (>60 ml/min/1.73 sqM); Potassium 3.9 mmol/L (3.5-5.1); Sodium 135 mmol/L (137-145); Total Bilirubin 0.4 mg/dL (0.2-1.3)
[2021-01-25 07:24] LABS: Glucose,Whole Blood 150 mg/dL (75-99)
[2021-01-25] MEDS: VANCOMYCIN 2,000 MG in SODIUM CHLORIDE 0.9% 500 ML 500 ML IVPB SCH ×2 (08:35→20:45)
[2021-01-25] MEDS: CHOLECALCIFEROL 25 MCG (1000 IU) TABLET PO SCH (08:35)
[2021-01-25] MEDS: EZETIMIBE 10 MG TAB PO SCH (08:35)
[2021-01-25] MEDS: APIXABAN 5 MG TAB PO SCH ×2 (08:35→20:49)
[2021-01-25] MEDS: PANTOPRAZOLE 40 MG TABLET PO SCH (08:35)
[2021-01-25] MEDS: TAMSULOSIN 0.4 MG CAP.ER.24H PO SCH (08:35)
[2021-01-25] MEDS: INSULIN ASPART (NovoLOG) 100 UNIT/ML VIAL SQ SCH ×4 (08:35→20:53)
[2021-01-25] MEDS: ASPIRIN 81 MG PO SCH (08:35)
[2021-01-25] MEDS: ATORVASTATIN 20 MG TAB PO SCH (08:35)
[2021-01-25] MEDS: hydrALAZINE HCL 50 MG TAB PO SCH ×2 (08:36→20:49)
[2021-01-25] MEDS: DILTIAZEM CD 120 MG CAP.ER.24H PO SCH (08:36)
[2021-01-25] MEDS: buPROPion XL 150 MG TAB.ER.24H PO SCH (08:36)
[2021-01-25] MEDS: SOTALOL 120 MG TAB PO SCH ×2 (08:36→18:01)
[2021-01-25] MEDS: CHLORTHALIDONE 25 MG TAB PO SCH (08:36)
[2021-01-25] MEDS: MAGNESIUM OXIDE 400 MG TAB PO SCH (08:47)
[2021-01-25] MEDS: METOPROLOL TARTRATE 50 MG TAB PO SCH ×2 (08:47→20:49)
[2021-01-25] MEDS: MULTIVITAMINS, THERA 1 EACH TAB PO SCH (08:47)
[2021-01-25] MEDS: lisinopriL 20 MG TAB PO SCH (08:48)
[2021-01-25 09:43] LABS: Basophils # (A) 0.07 X 10*3/uL (0.00-0.10); Basophils % (A) 0.7 %; Eosinophils # (A) 0.21 X 10*3/uL (0.04-0.35); HCT 36.2 % (39.6-50.0); HGB 11.3 g/dL (13.0-17.0); Lymphocytes # (A) 1.22 X 10*3/uL (0.90-5.00); Lymphocytes % (A) 11.5 %; MCH 28.3 pg (27.0-32.0); MCHC 31.2 g/dL (32.0-37.0); MCV 90.7 fL (80.0-97.0); Mean Platelet Volume 11.6 fL (9.5-12.2); Monocytes # (A) 1.65 X 10*3/uL (0.20-1.00); Monocytes % (A) 15.6 %; Neutrophils % (A) 69.7 %; Platelet Count 324 X 10*3/uL (140-440); RBC 3.99 X 10*6/uL (4.40-5.60); RDW 13.1 % (11.5-14.5)
--- NOTE | 2021-01-25 10:50 | P.PN ---
Progress Note - Text Progress Note Date: 01/25/21 Patient states he feels unwell today. He is also very tired. On exam her vital signs are stable. Abdomen soft. DENA drain has had minimal output. Incision is draining slightly. Erythema has improved. Status post gastrorrhaphy removal of eroded LAP-BAND. Patient developed a small wound infection. [place] removed. He's had some drainage. The patient will continue to receive will receive IV antibiotic.
[2021-01-25 12:22] LABS: Glucose,Whole Blood 210 mg/dL (75-99)
[2021-01-25] MEDS: ANIDULAFUNGIN 100 MG in SODIUM CHLORIDE 0.9% 100 ML IVPB SCH (13:09)
[2021-01-25 17:03] LABS: Glucose,Whole Blood 170 mg/dL (75-99)
[2021-01-25 20:21] LABS: Glucose,Whole Blood 184 mg/dL (75-99)
--- NOTE | 2021-01-25 22:53 | PN ---
PROGRESS NOTE DATE OF SERVICE: 01/25/2021 REASON FOR FOLLOWUP: Abdominal incision cellulitis and leukocytosis. INTERVAL HISTORY: The patient is afebrile, has been breathing comfortably. Still complaining of discomfort around the lower end of his incision with some drainage. No chest pain, shortness of breath or cough. No abdominal pain or diarrhea. PHYSICAL EXAMINATION: Blood pressure /66, pulse of 54, temperature 98.5. He is 93% on room air. General description is a middle-aged male up in the chair in no distress. RESPIRATORY SYSTEM: Unlabored breathing. Clear to auscultation anteriorly. HEART: S1, S2. Regular rate and rhythm. ABDOMEN: Soft. The lower abdominal incision did an area of hardness but no significant purulent drainage. LABS: Hemoglobin is 11, white count 10.6, creatinine 0.4. Cultures currently pending. DIAGNOSTIC IMPRESSION AND PLAN: Patient admitted to hospital with infected lap band, status post removal of the lap band and gastrorrhaphy. The patient's white count initially responded to the Eraxis. Subsequently he did have some redness around his of incision with minimal drainage that has been cultured. Those will be followed. The patient is currently on vancomycin and Eraxis; to continue and monitor his clinical course closely. MMODL / IJN: [id number] /
--- NOTE | 2021-01-25 23:23 | P.PN ---
Subjective This is a pleasant 55 years old male with past medical history of morbid obesity status post lap band. Presents with signs and symptoms of sepsis secondary to lap band infection. He presents with abdominal pain with low-grade fever of 100 on admission. He has CT of the abdomen and pelvis showing possible infection. Patient status post exploratory laparotomy on 01/14 with removal of the lap band device and gastrorrhaphy. Currently lying in bed comfortable. Patient was started today on liquid diet by surgery team. Vitals are stable. Leukocytosis is improving. Patient remains on Zosyn and eraxis and normal saline at 60 mL per hour 01/20/2021 Patient remains fully awake and oriented. He developed some abdominal pain after liquid diet is a started by surgery team. However patient is willing to keep him on liquid diet. We will keep monitoring. Continue with symptomatic treatment. His leukocytosis is improved to 12.2. Continue with Zosyn, Eraxis and normal saline at 60 mL per hour. Monitor urine output. Surgery and ID team's on the case 01/24/2021 Patient clinically is doing well however he developed an incisional cellulitis with surrounding erythema and some tenderness, and there was some mention of service discharge from the edge of the wound and the lower end. However there is no clear purulent discharge. He is hemodynamically stable. Afebrile. WBC is only mildly elevated at 10.7. And wound culture has been sent. Antibiotics has been adjusted to IV vancomycin on the top of his Eraxis. We'll monitor his creatinine and wound culture and other labs Eliquis restarted yesterday and hemoglobin stable. Follow-up tomorrow 01/25/2021 Patient clinically stable however he is having infection at the incisional site. He is tolerating diet well with no specific complaints. Vitals are stable and not shown only mild leukocytosis. However yesterday he had some redness around his incision in the mid abdomen, cu lture has been sent from incisional discharge and patient antibiotics were adjusted to Eraxis while Zosyn switched to IV vancomycin, wound culture still pending however his erythema around the wound is significantly better compared to yesterday. Hemoglobin remained stable after resume Eliquis Objective - Vital Signs Vital signs: Vital Signs Temp 98.2 F 01/25/21 14:00 Pulse 63 01/25/21 14:00 Resp 18 01/25/21 14:00 BP 166/68 01/25/21 14:00 Pulse Ox 94 L 01/25/21 14:00 Intake & Output 01/24/21 01/25/21 01/25/21 18:59 06:59 18:59 Intake Total 960 250 180 Balance 960 250 180 Intake: Intake, IV Titration 960 250 Amount Anidulafungin 100 mg In 100 Sodium Chloride 0.9% 100 ml @ 84 mls/hr IVPB DAILY @1200 [facility] Rx#:[id number] Sodium Chloride 0.9% 1, 360 0 000 ml @ 60 mls/hr IV . [id number] [facility] Rx#:[id number] Vancomycin 2,000 mg In 500 250 Sodium Chloride 0.9% 500 ml 500 ml @ 167 mls/hr IVPB Q12H [facility] Rx#: [id number] Oral 180 - Exam -GENERAL: The patient is alert and oriented x3, not in any acute distress. Well morbidly obese HEENT: Pupils are round and equally reacting to light. EOMI. No scleral icterus. No conjunctival pallor. Normocephalic, atraumatic. No pharyngeal erythema. No thyromegaly. CARDIOVASCULAR: S1 and S2 present. No murmurs, rubs, or gallops. PULMONARY: Chest is clear to auscultation, no wheezing or crackles. -ABDOMEN: Soft, nontender, nondistended, normoactive bowel sounds. No palpable organomegaly. Surgical wounds closed and in dressing is in place MUSCULOSKELETAL: No joint swelling or deformity. EXTREMITIES: No cyanosis, clubbing, or pedal edema. NEUROLOGICAL: Gross neurological examination did not reveal any focal deficits. SKIN: No rashes. no petechiae. - Labs CBC & Chem 7: 01/25/21 06:36 01/25/21 06:36 Labs: Abnormal Lab Results - Last 24 Hours (Table) 01/24/21 01/24/21 01/25/21 Range/Units 17:24 20:15 06:36 WBC (4.50-10.00) X 10*3/uL RBC (4.40-5.60) X 10*6/uL Hgb (13.0-17.0) g/dL Hct (39.6-50.0) % MCHC (32.0-37.0) g/dL Immature Gran # (0.00-0.04) X 10*3/uL Monocytes # (0.20-1.00) X 10*3/uL Sodium 135 L (137-145) mmol/L Chloride 96 L (98-107) mmol/L Carbon Dioxide 32 H (22-30) mmol/L Glucose 159 H (74-99) mg/dL POC Glucose (mg/dL) 178 H 210 H (75-99) mg/dL Total Protein 6.0 L (6.3-8.2) g/dL Albumin 2.5 L (3.5-5.0) g/dL 01/25/21 01/25/21 01/25/21 Range/Units 06:36 07:22 12:20 WBC 10.60 H (4.50-10.00) X 10*3/uL RBC 3.99 L (4.40-5.60) X 10*6/uL Hgb 11.3 L (13.0-17.0) g/dL Hct 36.2 L (39.6-50.0) % MCHC 31.2 L (32.0-37.0) g/dL Immature Gran # 0.05 H (0.00-0.04) X 10*3/uL Monocytes # 1.65 H (0.20-1.00) X 10*3/uL Sodium (137-145) mmol/L Chloride (98-107) mmol/L Carbon Dioxide (22-30) mmol/L Glucose (74-99) mg/dL POC Glucose (mg/dL) 150 H 210 H (75-99) mg/dL Total Protein (6.3-8.2) g/dL Albumin (3.5-5.0) g/dL 01/25/21 Range/Units 17:02 WBC (4.50-10.00) X 10*3/uL RBC (4.40-5.60) X 10*6/uL Hgb (13.0-17.0) g/dL Hct (39.6-50.0) % MCHC (32.0-37.0) g/dL Immature Gran # (0.00-0.04) X 10*3/uL Monocytes # (0.20-1.00) X 10*3/uL Sodium (137-145) mmol/L Chloride (98-107) mmol/L Carbon Dioxide (22-30) mmol/L Glucose (74-99) mg/dL POC Glucose (mg/dL) 170 H (75-99) mg/dL Total Protein (6.3-8.2) g/dL Albumin (3.5-5.0) g/dL Microbiology - Last 24 Hours (Table) 01/24/21 10:00 Gram Stain - Preliminary Abdomen Wound Culture - Preliminary 01/24/21 10:00 Anaerobic Culture - Preliminary Abdomen Assessment and Plan Assessment: Sepsis secondary to lap band infection status post exploratory laparotomy and removal of the lap band device and gastrorrhaphy incisional cellulitis Morbid obesity Chronic diastolic CHF History of paroxysmal A. fib on Eliquis at home, resumed Plan: This is a pleasant 55 years old male who presents with lap band infection status post laparotomy and removal of device and gastric repair Continue with IV vancomycin and eraxis. Follow-up wound culture Advance diet as tolerated per surgery team will follow the case closely ID team consult Continue with gentle hydration Labs and medication were reviewed.. Continue same treatment. Continue with symptomatic treatment. Resume home medication. Monitor lytes and vitals. DVT and GI prophylaxis. Further recommendations as per clinical course of the patient DVT prophylaxis Eliquis GI Prophylaxis: Ppi
[2021-01-26] MEDS: HYDROmorphone 1 MG/ML 1 ML SYRINGE IVP PRN ×3 (03:25→21:04)
[2021-01-26] MEDS ORDERED: VANCOMYCIN TROUGH DUE 1 EACH MISC MISCELLANE ONE (07:00)
[2021-01-26] MEDS: hydrALAZINE HCL 50 MG TAB PO SCH ×2 (08:12→20:42)
[2021-01-26] MEDS: METOPROLOL TARTRATE 50 MG TAB PO SCH ×2 (08:12→20:42)
[2021-01-26] MEDS: TAMSULOSIN 0.4 MG CAP.ER.24H PO SCH (08:12)
[2021-01-26] MEDS: buPROPion XL 150 MG TAB.ER.24H PO SCH (08:12)
[2021-01-26] MEDS: EZETIMIBE 10 MG TAB PO SCH (08:12)
[2021-01-26] MEDS: MULTIVITAMINS, THERA 1 EACH TAB PO SCH (08:12)
[2021-01-26] MEDS: CHLORTHALIDONE 25 MG TAB PO SCH (08:12)
[2021-01-26] MEDS: lisinopriL 20 MG TAB PO SCH (08:12)
[2021-01-26] MEDS: PANTOPRAZOLE 40 MG TABLET PO SCH (08:13)
[2021-01-26] MEDS: APIXABAN 5 MG TAB PO SCH ×2 (08:13→20:42)
[2021-01-26] MEDS: ATORVASTATIN 20 MG TAB PO SCH (08:13)
[2021-01-26] MEDS: MAGNESIUM OXIDE 400 MG TAB PO SCH (08:13)
[2021-01-26] MEDS: DILTIAZEM CD 120 MG CAP.ER.24H PO SCH (08:13)
[2021-01-26] MEDS: CHOLECALCIFEROL 25 MCG (1000 IU) TABLET PO SCH (08:13)
[2021-01-26] MEDS: ASPIRIN 81 MG PO SCH (08:13)
[2021-01-26] MEDS: VANCOMYCIN 2,000 MG in SODIUM CHLORIDE 0.9% 500 ML 500 ML IVPB SCH ×2 (08:23→19:13)
[2021-01-26 08:28] LABS: Glucose,Whole Blood 169 mg/dL (75-99)
[2021-01-26 08:33] VITALS: RESP 16
[2021-01-26] MEDS: INSULIN ASPART (NovoLOG) 100 UNIT/ML VIAL SQ SCH ×4 (08:38→21:00)
[2021-01-26] MEDS: SOTALOL 120 MG TAB PO SCH ×2 (10:57→18:05)
[2021-01-26] MEDS: ANIDULAFUNGIN 100 MG in SODIUM CHLORIDE 0.9% 100 ML IVPB SCH (12:01)
[2021-01-26 12:35] LABS: Glucose,Whole Blood 177 mg/dL (75-99)
--- NOTE | 2021-01-26 13:40 | P.PN ---
Subjective Progress Note Date: 01/26/21 CHIEF COMPLAINT: Lap band port infection HISTORY OF PRESENT ILLNESS: Patient is status post diagnostic laparoscopy, exploratory laparotomy, removal of lap band device and gastrorrhaphy POD #12. Patient's incision is started to have drainage over the weekend. The erythema around the incision is decreasing. He reports improvement in his pain. Denies any nausea or vomiting. He is having bowel movements and flatus. Afebrile. WBC is down to 10.6. He's tolerating a regular diet. PHYSICAL EXAM: VITAL SIGNS: Reviewed. GENERAL: Well-developed in no acute distress. HEENT: No sclera icterus. Extraocular movements grossly intact. Moist buccal mucosa. Head is atraumatic, normocephalic. ABDOMEN: Soft. Nondistended. Incision site decreased erythema. Yellowish drainage noted at the top of the incision and bottom of the incision. NEUROLOGIC: Alert and oriented. Cranial nerves II through XII grossly intact. ASSESSMENT: 1. Erosion of lap band and adhesions. Status post diagnostic laparoscopy, exploratory laparotomy, removal of lap band device and gastrorrhaphy on 01/14/2021 2. Infected lap band port status post lap band port removal on 01/07/2021 3. Leukocytosis 4. Urinary retention resolved 5. Hypokalemia resolved 6. 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 Signing provider agrees with the documented findings, assessment, and plan of care. Objective - Vital Signs Vital signs: Vital Signs Temp 98.2 F 01/26/21 08:00 Pulse 43 L 01/26/21 08:00 Resp 16 01/26/21 08:00 BP 160/73 01/26/21 08:00 Pulse Ox 95 01/26/21 08:00 Intake & Output 01/25/21 01/26/21 01/26/21 18:59 06:59 18:59 Intake Total 780 180 Output Total 5 Balance 780 -5 180 Weight 139.7 kg Intake: Intake, IV Titration 600 Amount Anidulafungin 100 mg In 100 Sodium Chloride 0.9% 100 ml @ 84 mls/hr IVPB DAILY @1200 [facility] Rx#:[id number] Vancomycin 2,000 mg In 500 Sodium Chloride 0.9% 500 ml 500 ml @ 167 mls/hr IVPB Q12H [facility] Rx#: [id number] Oral 180 180 Output: Drainage 5 Anterior Abdomen 5 Other: Voiding Method Toilet # Voids 2 - Labs CBC & Chem 7: 01/25/21 06:36 01/25/21 06:36 Labs: Abnormal Lab Results - Last 24 Hours (Table) 01/25/21 01/25/21 01/26/21 Range/Units 17:02 20:20 08:27 POC Glucose (mg/dL) 170 H 184 H 169 H (75-99) mg/dL 01/26/21 Range/Units 12:34 POC Glucose (mg/dL) 177 H (75-99) mg/dL Microbiology - Last 24 Hours (Table) 01/24/21 10:00 Gram Stain - Preliminary Abdomen Wound Culture - Preliminary
[2021-01-26 17:43] LABS: Glucose,Whole Blood 182 mg/dL (75-99)
[2021-01-26 20:44] LABS: Glucose,Whole Blood 160 mg/dL (75-99)
--- NOTE | 2021-01-26 23:20 | PN ---
PROGRESS NOTE DATE OF SERVICE: 01/26/2021 REASON FOR FOLLOWUP: Abdominal incision cellulitis and leukocytosis. INTERVAL HISTORY: The patient is afebrile. He is breathing comfortably. Denies any chest pain, shortness of breath or cough. Abdominal discomfort has slightly decreased and drainage has decreased. No vomiting or diarrhea. PHYSICAL EXAMINATION: Blood pressure 170/77 with a pulse of 70, temperature 98.8. He is 93% on room air. General description is a middle-aged male up in the chair in no distress. RESPIRATORY SYSTEM: Unlabored breathing. Clear to auscultation anteriorly. HEART: S1, S2. Regular rate and rhythm. ABDOMEN: Soft. Overall redness and induration slightly decreased. Did have minimal drainage. LABS: Culture now showing a yeast. DIAGNOSTIC IMPRESSION AND PLAN: Patient with abdominal incision cellulitis. Did have slight drainage. Culture showing yeast. Patient is covered with Eraxis, which can be continued with for another week or 10 days while waiting for his condition to stabilize, and monitor her clinical course closely. Continue supportive care. MMODL / IJN: [id number] /
[2021-01-27 07:44] VITALS: BP 171/87; PULSE 55; TEMP 97.8
[2021-01-27] MEDS: VANCOMYCIN 2,000 MG in SODIUM CHLORIDE 0.9% 500 ML 500 ML IVPB SCH (07:45)
[2021-01-27] MEDS: hydrALAZINE HCL 50 MG TAB PO SCH (07:45)
[2021-01-27] MEDS: EZETIMIBE 10 MG TAB PO SCH (07:45)
[2021-01-27] MEDS: buPROPion XL 150 MG TAB.ER.24H PO SCH (07:46)
[2021-01-27] MEDS: TAMSULOSIN 0.4 MG CAP.ER.24H PO SCH (07:46)
[2021-01-27] MEDS: CHOLECALCIFEROL 25 MCG (1000 IU) TABLET PO SCH (07:46)
[2021-01-27] MEDS: PANTOPRAZOLE 40 MG TABLET PO SCH (07:46)
[2021-01-27] MEDS: METOPROLOL TARTRATE 50 MG TAB PO SCH (07:46)
[2021-01-27] MEDS: DILTIAZEM CD 120 MG CAP.ER.24H PO SCH (07:46)
[2021-01-27] MEDS: ATORVASTATIN 20 MG TAB PO SCH (07:46)
[2021-01-27] MEDS: SOTALOL 120 MG TAB PO SCH (07:46)
[2021-01-27] MEDS: MULTIVITAMINS, THERA 1 EACH TAB PO SCH (07:46)
[2021-01-27] MEDS: MAGNESIUM OXIDE 400 MG TAB PO SCH (07:46)
[2021-01-27] MEDS: ASPIRIN 81 MG PO SCH (07:46)
[2021-01-27] MEDS: CHLORTHALIDONE 25 MG TAB PO SCH (07:47)
[2021-01-27] MEDS: lisinopriL 20 MG TAB PO SCH (07:47)
[2021-01-27] MEDS: INSULIN ASPART (NovoLOG) 100 UNIT/ML VIAL SQ SCH ×2 (07:47→12:44)
[2021-01-27] MEDS: APIXABAN 5 MG TAB PO SCH (07:47)
[2021-01-27 07:51] LABS: Glucose,Whole Blood 169 mg/dL (75-99)
--- NOTE | 2021-01-27 09:01 | P.PN ---
Subjective Progress Note Date: 01/27/21 This is a pleasant 55 years old male with past medical history of morbid obesity status post lap band. Presents with signs and symptoms of sepsis secondary to lap band infection. He presents with abdominal pain with low-grade fever of 100 on admission. He has CT of the abdomen and pelvis showing possible infection. Patient status post exploratory laparotomy on 01/14 with removal of the lap band device and gastrorrhaphy. Currently lying in bed comfortable. Patient was started today on liquid diet by surgery team. Vitals are stable. Leukocytosis is improving. Patient remains on Zosyn and eraxis and normal saline at 60 mL per hour 01/20/2021 Patient remains fully awake and oriented. He developed some abdominal pain after liquid diet is a started by surgery team. However patient is willing to keep him on liquid diet. We will keep monitoring. Continue with symptomatic treatment. His leukocytosis is improved to 12.2. Continue with Zosyn, Eraxis and normal saline at 60 mL per hour. Monitor urine output. Surgery and ID team's on the case 01/21/2021 Patient is seen and evaluated in follow-up this morning no acute overnight issues. Patient did have indwelling Vang catheter removed and is concerned with a possible lesion noted on the tip of the penis and infectious disease foll owing the patient is maintained on IV Zosyn along with antifungal Anidulafungin daily. Some mild hematuria noted and hemoglobin is stable at 12.0. Urine cultures are negative and patient denies any burning with urination. Patient is continued on full liquids per surgery recommendations and tolerating with no reports of nausea and vomiting noted. Recommend repeat labs in the morning. 01/22/2021 Patient is seen in follow-up this morning having some redness and warmth at the bottom of the incision site. Patient states this is new and was less reddened yesterday. Surgical site is dry and intact with yaquelin noted and no obvious drainage or purulence noted. Following closely with surgery and patient is also being followed closely by infectious disease and maintained on IV antibiotics a long with antifungal medications. Patient states that hematuria has improved and is voiding with no burning or pain with urination. a.m. labs are pending. Patient is continued on full liquid diet and tolerating with no reports of nausea or vomiting noted. Patient is passing gas and having bowel movements. per infectious disease patient will likely require IV antibiotics on discharge and will consult case management for home care and discharge planning needs. encouraged increased activity as tolerated and continue with incentive spirometer use. 01/23/2021 Patient is seen and evaluated in follow-up this morning with continued redness along the bottom of the incision site and much more indurated and tender to touch. Infectious disease following closely and antibiotics being switched to v ancomycin along with continued antifungals. Discussed with surgery and okay to resume Eliquis history of A. fib and will discontinue subcutaneous heparin. Patient reports to tolerating diet with no reports of nausea or vomiting noted and is having flatus and bowel movements. surgical site has been marked with a marker to monitor closely for any worsening redness or induration. 01/24/2021 Patient clinically is doing well however he developed an incisional cellulitis with surrounding erythema and some tenderness, and there was some mention of service discharge from the edge of the wound and the lower end. However there is no clear purulent discharge. He is hemodynamically stable. Afebrile. WBC is only mildly elevated at 10.7. And wound culture has been sent. Antibiotics has been adjusted to IV vancomycin on the top of his Eraxis. We'll monitor his creatinine and wound culture and other labs Eliquis restarted yesterday and hemoglobin stable. Follow-up tomorrow 01/25/2021 Patient clinically stable however he is having infection at the incisional site. He is tolerating diet well with no specific complaints. Vitals are stable and not shown only mild leukocytosis. However yesterday he had some redness around his incision in the mid abdomen, culture has been sent from incisional discharge and patient antibiotics were adjusted to Eraxis while Zosyn switched to IV vancomycin, wound culture still pending however his erythema around the wound is significantly better compared to yesterday. Hemoglobin remained stable after resume Eliquis 01/26/2021 Patient is seen and evaluated in follow-up and currently maintained on Labs: white blood count is 10.98, hemoglobin is 12.1, platelets are 358, sodium is 136, potassium is 3.6, BUN is 7.5 and current creatinine is 0.8, calcium is 8.3. Review of systems: Constitutional: No reports of fatigue, fever, or chills Cardiovascular: No reports of chest pain or palpitations Respiratory: No reports of shortness of breath or cough GI: No reports of nausea, vomiting, or diarrhea, reports continued redness and warmth at the bottom of the surgical site which has worsened : No reports of dysuria or retention Neurovascular: No reports of weakness or numbness All medications have been reviewed Active Medications Acetaminophen (Acetaminophen Tab 325 Mg Tab) 650 mg PO Q6HR PRN PRN Reason: Mild Pain or Fever > 100.5 Last Admin: 01/10/21 01:51 Dose: 650 mg Documented by: Apixaban (Apixaban 5 Mg Tab) 5 mg PO BID [facility]; Protocol Last Admin: 01/27/21 07:47 Dose: 5 mg Documented by: Aspirin (Aspirin 81 Mg) 81 mg PO DAILY [facility] Last Admin: 01/27/21 07:46 Dose: 81 mg Documented by: Atorvastatin Calcium (Atorvastatin 20 Mg Tab) 20 mg PO DAILY [facility] Last Admin: 01/27/21 07:46 Dose: 20 mg Documented by: Bupropion HCl (Bupropion Xl 150 Mg Tab.Er.24h) 150 mg PO DAILY [facility] Last Admin: 01/27/21 07:46 Dose: 150 mg Documented by: Chlorthalidone (Chlorthalidone 25 Mg Tab) 25 mg PO DAILY [facility] Last Admin: 01/27/21 07:47 Dose: 25 mg Documented by: Cholecalciferol (Cholecalciferol 25 Mcg (1000 Iu) Tablet) 25 mcg PO DAILY [facility] Last Admin: 01/27/21 07:46 Dose: 25 mcg Documented by: Diltiazem HCl (Diltiazem Cd 120 Mg Cap.Er.24h) 120 mg PO DAILY [facility] Last Admin: 01/27/21 07:46 Dose: 120 mg Documented by: Ezetimibe (Ezetimibe 10 Mg Tab) 10 mg PO DAILY [facility] Last Admin: 01/27/21 07:45 Dose: 10 mg Documented by: Hydralazine HCl (Hydralazine Hcl 50 Mg Tab) 50 mg PO BID [facility] Last Admin: 01/27/21 07:45 Dose: 50 mg Documented by: Hydralazine HCl (Hydralazine Hcl 20 Mg/Ml 1 Ml Vial) 10 mg IVP Q4HR PRN PRN Reason: Blood Pressure - High Last Admin: 01/17/21 08:40 Dose: 10 mg Documented by: Hydromorphone HCl (Hydromorphone 1 Mg/Ml 1 Ml Syringe) 1 mg IVP Q3HR PRN PRN Reason: Moderate Pain Last Admin: 01/26/21 21:04 Dose: 1 mg Documented by: Anidulafungin 100 mg/ Sodium (Chloride) 100 mls @ 84 mls/hr IVPB DAILY@1200 [facility] Last Admin: 01/26/21 12:01 Dose: 84 mls/hr Documented by: Vancomycin HCl 2,000 mg/ (Sodium Chloride) 500 mls @ 167 mls/hr IVPB Q12H [facility] Last Admin: 01/27/21 07:45 Dose: 167 mls/hr Documented by: Insulin Aspart (Insulin Aspart (Novolog) 100 Unit/Ml Vial) 0 unit SQ ACHS [facility]; Protocol Last Admin: 01/27/21 07:47 Dose: 2 unit Documented by: Lidocaine HCl (Lidocaine 1% (10mg/Ml) For Iv Start) 0.1 ml INTRADERMA PER PROTOCOL PRN PRN Reason: IV Start Lisinopril (Lisinopril 20 Mg Tab) 20 mg PO DAILY [facility] Last Admin: 01/27/21 07:47 Dose: 20 mg Documented by: Magnesium Oxide (Magnesium Oxide 400 Mg Tab) 400 mg PO DAILY [facility] Last Admin: 01/27/21 07:46 Dose: 400 mg Documented by: Metoclopramide HCl (Metoclopramide 5 Mg/Ml 2 Ml Vial) 10 mg IVP Q6H PRN PRN Reason: Nausea And Vomiting Metoprolol Tartrate (Metoprolol Tartrate 50 Mg Tab) 50 mg PO BID [facility] Last Admin: 01/27/21 07:46 Dose: 50 mg Documented by: Multivitamins (Multivitamins, Thera 1 Each Tab) 1 each PO DAILY [facility] Last Admin: 01/27/21 07:46 Dose: 1 each Documented by: Naloxone HCl (Naloxone 0.4 Mg/Ml 1 Ml Vial) 0.2 mg IV Q2M PRN PRN Reason: Opioid Reversal Ondansetron HCl (Ondansetron 4 Mg/2 Ml Vial) 4 mg IVP Q8HR PRN PRN Reason: Nausea And Vomiting Ondansetron HCl (Ondansetron 4 Mg/2 Ml Vial) 4 mg IVP Q6HR PRN PRN Reason: Nausea And Vomiting Pantoprazole Sodium (Pantoprazole 40 Mg Tablet) 40 mg PO AC-BRKFST [facility] Last Admin: 01/27/21 07:46 Dose: 40 mg Documented by: Sotalol HCl (Sotalol 120 Mg Tab) 240 mg PO BID-W/MEALS [facility] Last Admin: 01/27/21 07:46 Dose: 240 mg Documented by: Tamsulosin HCl (Tamsulosin 0.4 Mg Cap.Er.24h) 0.4 mg PO PC-BRKFST [facility] Last Admin: 01/27/21 07:46 Dose: 0.4 mg Documented by: Physical exam: GENERAL: The patient is alert and oriented x3, not in any acute distress. Well developed, well-nourished morbidly obese HEENT: Pupils are round and equally reacting to light. EOMI. No scleral icterus. No conjunctival pallor. Normocephalic, atraumatic. No pharyngeal erythema. No thyromegaly. CARDIOVASCULAR: S1 and S2 present. No murmurs, rubs, or gallops. PULMONARY: Chest is clear to auscultation, no wheezing or crackles. ABDOMEN: Soft, nontender, nondistended, normoactive bowel sounds. No palpable organomegaly. Surgical wounds closed and intact MUSCULOSKELETAL: No joint swelling or deformity. EXTREMITIES: No cyanosis, clubbing, or pedal edema. NEUROLOGICAL: Gross neurological examination did not reveal any focal deficits. SKIN: No rashes. no petechiae. redness and warmth noted at the base of the surgical site mid abdomen, yaquelin are noted to be dry and intact with no drainage, no bleeding noted, induration has worsened around the surgical site with marker noted around the redness and induration Assessment: Sepsis secondary to lap band infection status post exploratory laparotomy and removal of the lap band device and gastrorrhaphy Incisional cellulitis Morbid obesity Chronic diastolic CHF history of paroxysmal atrial fibrillation DVT prophylaxis; on eliquis GI prophylaxis Full code Plan: This is a pleasant 55 years old male who presents with lap band infection status post laparotomy and removal of device and gastric repair with incisional cellulitis and patient is maintained on IV vancomycin and Eraxis with infectious disease following. Awaiting finalized culture determine discharge antibiotics. Preliminary wound culture showing yeast species and blood cultures remain negative. Will discuss with infectious disease about requiring IV antibiotic therapy and case management following working on verification of insurance. Patient will need home care in the outpatient setting. Patient tolerating diet and continues to have bowel movements with abdominal tenderness at the site. Patient is tolerating the diet with no nausea or vomiting noted. Encouraged increased activity as tolerated and continued incentive spirometer use Will continue to follow along with surgery during hospitalization. Thank you for this consultation. Objective - Vital Signs Vital signs: Vital Signs Temp 98.2 F 01/26/21 08:00 Pulse 43 L 01/26/21 08:00 Resp 16 01/26/21 08:00 BP 160/73 01/26/21 08:00 Pulse Ox 95 01/26/21 08:00 Intake & Output 01/25/21 01/26/21 01/26/21 18:59 06:59 18:59 Intake Total 780 180 Output Total 5 Balance 780 -5 180 Intake: Intake, IV Titration 600 Amount Anidulafungin 100 mg In 100 Sodium Chloride 0.9% 100 ml @ 84 mls/hr IVPB DAILY @1200 [facility] Rx#:[id number] Vancomycin 2,000 mg In 500 Sodium Chloride 0.9% 500 ml 500 ml @ 167 mls/hr IVPB Q12H [facility] Rx#: [id number] Oral 180 180 Output: Drainage 5 Anterior Abdomen 5 Other: Voiding Method Toilet # Voids 2 - Labs CBC & Chem 7: 01/25/21 06:36 01/25/21 06:36 Labs: Abnormal Lab Results - Last 24 Hours (Table) 01/25/21 01/25/21 01/25/21 Range/Units 12:20 17:02 20:20 POC Glucose (mg/dL) 210 H 170 H 184 H (75-99) mg/dL 01/26/21 Range/Units 08:27 POC Glucose (mg/dL) 169 H (75-99) mg/dL Microbiology - Last 24 Hours (Table) 01/24/21 10:00 Gram Stain - Preliminary Abdomen Wound Culture - Preliminary
[2021-01-27 09:36] LABS: Basophils # (A) 0.1 k/uL (0-0.2); Basophils % (A) 0 %; Eosinophils # (A) 0.2 k/uL (0-0.7); Eosinophils % (A) 2 %; HCT 34.6 % (39.0-53.0); HGB 11.7 gm/dL (13.0-17.5); Lymphocytes # (A) 1.1 k/uL (1.0-4.8); Lymphocytes % (A) 10 %; MCH 29.9 pg (25.0-35.0); MCHC 33.8 g/dL (31.0-37.0); Mean Platelet Volume 8.9; Monocytes % (A) 9 %; Neutrophils # (A) 8.3 k/uL (1.3-7.7); Neutrophils % (A) 77 %; Platelet Count 299 k/uL (150-450); RBC 3.91 m/uL (4.30-5.90); RDW 13.1 % (11.5-15.5); WBC 10.8 k/uL (3.8-10.6)
[2021-01-27 09:50] LABS: MCV 88.5 fL (80.0-100.0)
[2021-01-27] MEDS: ANIDULAFUNGIN 100 MG in SODIUM CHLORIDE 0.9% 100 ML IVPB SCH (11:00)
[2021-01-27 11:32] LABS: Glucose,Whole Blood 155 mg/dL (75-99)
--- NOTE | 2021-01-27 12:24 | P.DS ---
Providers Date of admission: 01/07/21 11:46 Expected date of discharge: 01/27/21 Attending physician: Mike Acosta Consults: 01/07/21 08:20 Consult Physician Routine Consulting Provider: Bryanna Cardenas Consult Reason/Comments: medical management Do you want consulting provider notified?: Yes 01/16/21 16:08 Consult Physician Routine Consulting Provider: Sandor Rubin Consult Reason/Comments: sepsis? Do you want consulting provider notified?: Yes Primary care physician: Physician Nonstaff Hospital Course: Discharge diagnoses 1. Erosion of lap band and adhesions. Status post diagnostic laparoscopy, exploratory laparotomy, removal of lap band device and gastrorrhaphy on 01/14/2021 2. Infected lap band port status post lap band port removal on 01/07/2021 3. Leukocytosis 4. Urinary retention resolved 5. Hypokalemia resolved 6. Incisional cellulitis unexpected Hospital course This is a 55-year-old male with a known history of lap band that was placed ab out 15 years ago. He reports that he started having pain over the weekend on the left side of his abdomen. He's also been feverish. He had similar pain in October that did improve after antibiotics. He went to see his PCP this Tuesday and CAT scan was ordered which had shown inflammation changes at the LAP-BAND system. Patient initially underwent lap band port removal on 01/07/2021. He had an EGD completed on 01/12/2021 that showed erosion of lap band. He then underwent diagnostic laparoscopy, exploratory laparotomy, removal of lap band device and gastrorrhaphy on 01/14/2021. Patient's diet was able to be advanced slowly. He developed cellulitis at the incision site. He was followed closely by infectious disease. They placed him on antifungals. He has had improvement in the cellulitis. There is also decreased date drainage from the incision site. Patient is stable for discharge. He'll continue on the antifungal as prescribed per infectious disease for 10 more days. Patient is tolerating diet. He is having bowel movements. He is up and ambulating. He is afebrile. His pain is controlled. He is stable for discharge. Please refer to chart for any further details. 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 Signing provider agrees with the documented findings, assessment, and plan of care. Patient Condition at Discharge: Stable Plan - Discharge Summary Discharge Rx Participant: No New Discharge Prescriptions: New Tamsulosin [Flomax] 0.4 mg PO PC-BRKFST 30 Days #30 capsule Pantoprazole [Protonix] 40 mg PO AC-BRKFST 30 Days #30 tab HYDROcodone/APAP 5-325MG [[place] 5-325] 1 tab PO Q6HR PRN 3 Days #12 tab PRN Reason: Pain Diltiazem Cd [Cardizem CD] 120 mg PO DAILY 30 Days #30 capsule INSULIN ASPART (NovoLOG) [NovoLOG (formulary)] 4 unit SQ ACHS 30 Days #4 ml Continue Krill Oil 750mg 1 tab PO BID Aspirin EC [Ecotrin Low Dose] 81 mg PO DAILY Ezetimibe [Zetia] 10 mg PO DAILY Metoprolol Tartrate [Lopressor] 50 mg PO BID Cholecalciferol [Vitamin D3 (25 Mcg = 1000 Iu)] 25 mcg PO DAILY metFORMIN HCL 500 mg PO BID-W/MEALS Apixaban [Eliquis] 5 mg PO BID Chlorthalidone [Hygroton] 25 mg PO DAILY hydrALAZINE HCL 50 mg PO BID lisinopriL 20 mg PO BID Magnesium Chloride [Mag64] 64 mg PO DAILY Multivitamins, Thera [Multivitamin (formulary)] 1 tab PO DAILY Potassium Chloride [K-Tab ER] 20 meq PO DAILY Sotalol HCl [Sotalol] 240 mg PO BID-W/MEALS Atorvastatin [Lipitor] 20 mg PO DAILY buPROPion XL [Wellbutrin XL] 150 mg PO DAILY Discontinued Insulin Glargine,Hum.rec.anlog [Lantus Solostar Pen] 30 - 40 unit SQ QAM Diltiazem HCl [Diltiazem HCl 24Hr ER] 240 mg PO DAILY Insulin Glargine,Hum.rec.anlog [Lantus Solostar Pen] 80 unit SQ HS Discharge Medication List Apixaban [Eliquis] 5 mg PO BID 01/06/21 [History] Aspirin EC [Ecotrin Low Dose] 81 mg PO DAILY 01/06/21 [History] Chlorthalidone [Hygroton] 25 mg PO DAILY 01/06/21 [History] Ezetimibe [Zetia] 10 mg PO DAILY 01/06/21 [History] Krill Oil 750mg 1 tab PO BID 01/06/21 [History] Magnesium Chloride [Mag64] 64 mg PO DAILY 01/06/21 [History] Metoprolol Tartrate [Lopressor] 50 mg PO BID 01/06/21 [History] Multivitamins, Thera [Multivitamin (formulary)] 1 tab PO DAILY 01/06/21 [History] Potassium Chloride [K-Tab ER] 20 meq PO DAILY 01/06/21 [History] Sotalol HCl [Sotalol] 240 mg PO BID-W/MEALS 01/06/21 [History] hydrALAZINE HCL 50 mg PO BID 01/06/21 [History] lisinopriL 20 mg PO BID 01/06/21 [History] Atorvastatin [Lipitor] 20 mg PO DAILY 01/07/21 [History] Cholecalciferol [Vitamin D3 (25 Mcg = 1000 Iu)] 25 mcg PO DAILY 01/07/21 [History] buPROPion XL [Wellbutrin XL] 150 mg PO DAILY 01/07/21 [History] metFORMIN HCL 500 mg PO BID-W/MEALS 01/07/21 [History] Diltiazem Cd [Cardizem CD] 120 mg PO DAILY 30 Days #30 capsule 01/27/21 [Rx] HYDROcodone/APAP 5-325MG [[place] 5-325] 1 tab PO Q6HR PRN 3 Days #12 tab 01/27/21 [Rx] INSULIN ASPART (NovoLOG) [NovoLOG (formulary)] 4 unit SQ ACHS 30 Days #4 ml 01/27/21 [Rx] Pantoprazole [Protonix] 40 mg PO AC-BRKFST 30 Days #30 tab 01/27/21 [Rx] Tamsulosin [Flomax] 0.4 mg PO PC-BRKFST 30 Days #30 capsule 01/27/21 [Rx] Follow up Appointment(s)/Referral(s): [facility], [NON-STAFF] - 1 Week [facility],Infusion [NON-STAFF] - 1 Week Nonstaff,Physician [Primary Care Provider] - 1-2 days Mike Acosta MD [STAFF PHYSICIAN] - 1 Week Activity/Diet/Wound Care/Special Instructions: IF PATIENT DISCHARGES HOME ON TUESDAY OR TUESDAY- NURSE TO CALL [facility] INFUSION AT [phone] AND ASK FOR THE DOCTOR OF OSTEOPATHY NURSE TO INFORM THEM OF DISCHARGE SO THEY CAN DELIVER THE IV ANTIBIOTICS. [facility] CARE MUST BE INFORMED OF PATIENT DISCHARGE IF ON TUESDAY OR TUESDAY TO START CARE THE NEXT DAY. [facility] Care will manage IV line and surgical sites. [facility] will supply IV medication Antifungal as prescribed per ID Discharge Disposition: HOME WITH HOME HEALTH SERVICES
--- NOTE | 2021-01-27 14:15 | P.PN ---
Subjective Progress Note Date: 01/27/21 This is a pleasant 55 years old male with past medical history of morbid obesity status post lap band. Presents with signs and symptoms of sepsis secondary to lap band infection. He presents with abdominal pain with low-grade fever of [address] He has CT of the abdomen and pelvis showing possible infection. Patient status post exploratory laparotomy on 01/14 with removal of the lap band device and gastrorrhaphy. Currently lying in bed comfortable. Patient was started today on liquid diet by surgery team. Vitals are stable. Leukocytosis is improving. Patient remains on Zosyn and eraxis and normal saline at 60 mL per hour 01/20/2021 Patient remains fully awake and oriented. He developed some abdominal pain after liquid diet is a started by surgery team. However patient is willing to keep him on liquid diet. We will keep monitoring. Continue with symptomatic treatment. His leukocytosis is improved to 12.2. Continue with Zosyn, Eraxis and normal saline at 60 mL per hour. Monitor urine output. Surgery and ID team's on the case 01/21/2021 Patient is seen and evaluated in follow-up this morning no acute overnight issues. Patient did have indwelling Vang catheter removed and is concerned with a possible lesion noted on the tip of the penis and infectious disease foll owing the patient is maintained on IV Zosyn along with antifungal Anidulafungin daily. Some mild hematuria noted and hemoglobin is stable at 12.0. Urine cultures are negative and patient denies any burning with urination. Patient is continued on full liquids per surgery recommendations and tolerating with no reports of nausea and vomiting noted. Recommend repeat labs in the morning. 01/22/2021 Patient is seen in follow-up this morning having some redness and warmth at the bottom of the incision site. Patient states this is new and was less reddened yesterday. Surgical site is dry and intact with yaquelin noted and no obvious drainage or purulence noted. Following closely with surgery and patient is also being followed closely by infectious disease and maintained on IV antibiotics a long with antifungal medications. Patient states that hematuria has improved and is voiding with no burning or pain with urination. a.m. labs are pending. Patient is continued on full liquid diet and tolerating with no reports of nausea or vomiting noted. Patient is passing gas and having bowel movements. per infectious disease patient will likely require IV antibiotics on discharge and will consult case management for home care and discharge planning needs. encouraged increased activity as tolerated and continue with incentive spirometer use. 01/23/2021 Patient is seen and evaluated in follow-up this morning with continued redness along the bottom of the incision site and much more indurated and tender to touch. Infectious disease following closely and antibiotics being switched to v ancomycin along with continued antifungals. Discussed with surgery and okay to resume Eliquis history of A. fib and will discontinue subcutaneous heparin. Patient reports to tolerating diet with no reports of nausea or vomiting noted and is having flatus and bowel movements. surgical site has been marked with a marker to monitor closely for any worsening redness or induration. 01/24/2021 Patient clinically is doing well however he developed an incisional cellulitis with surrounding erythema and some tenderness, and there was some mention of service discharge from the edge of the wound and the lower end. However there is no clear purulent discharge. He is hemodynamically stable. Afebrile. WBC is only mildly elevated at 10.7. And wound culture has been sent. Antibiotics has been adjusted to IV vancomycin on the top of his Eraxis. We'll monitor his creatinine and wound culture and other labs Eliquis restarted yesterday and hemoglobin stable. Follow-up tomorrow 01/25/2021 Patient clinically stable however he is having infection at the incisional site. He is tolerating diet well with no specific complaints. Vitals are stable and not shown only mild leukocytosis. However yesterday he had some redness around his incision in the mid abdomen, culture has been sent from incisional discharge and patient antibiotics were adjusted to Eraxis while Zosyn switched to IV vancomycin, wound culture still pending however his erythema around the wound is significantly better compared to yesterday. Hemoglobin remained stable after resume Eliquis 01/27/2021 Patient is seen and evaluated in follow-up and currently maintained on IV antibiotics with infectious disease following closely. Wound cultures preliminary showing yeast species and medications be arranged through [facility] and continued home care and patient will follow-up with surgery closely in the outpatient setting. Home medications have been resumed and patient instructed to continue monitoring Accu-Cheks before meals and at bedtime and continue sliding scale for now until follow-up with primary care provider as blood sugars have been on the lower side and has not been receiving long-acting insulin. Review of systems: Constitutional: No reports of fatigue, fever, or chills Cardiovascular: No reports of chest pain or palpitations Respiratory: No reports of shortness of breath or cough GI: No reports of nausea, vomiting, or diarrhea, reports continued redness and warmth at the bottom of the surgical site which has slightly improved with continued drainage and dressings were changed and dry. : No reports of dysuria or retention Neurovascular: No reports of weakness or numbness All medications have been reviewed Physical exam: GENERAL: The patient is alert and oriented x3, not in any acute distress. Well developed, well-nourished morbidly obese HEENT: Pupils are round and equally reacting to light. EOMI. No scleral icterus. No conjunctival pallor. Normocephalic, atraumatic. No pharyngeal erythema. No thyromegaly. CARDIOVASCULAR: S1 and S2 present. No murmurs, rubs, or gallops. PULMONARY: Chest is clear to auscultation, no wheezing or crackles. ABDOMEN: Soft, nontender, nondistended, normoactive bowel sounds. No palpable organomegaly. Surgical wounds closed and intact MUSCULOSKELETAL: No joint swelling or deformity. EXTREMITIES: No cyanosis, clubbing, or pedal edema. NEUROLOGICAL: Gross neurological examination did not reveal any focal deficits. SKIN: No rashes. no petechiae. redness and warmth noted at the base of the surgical site mid abdomen, yaquelin are noted to be dry and intact with no drainage, no bleeding noted, induration has worsened around the surgical site with marker noted around the redness and induration Assessment: Sepsis secondary to lap band infection status post exploratory laparotomy and removal of the lap band device and gastrorrhaphy Incisional cellulitis Morbid obesity Chronic diastolic CHF history of paroxysmal atrial fibrillation DVT prophylaxis; on eliquis GI prophylaxis Full code Plan: Recommend to continue with current medications and management. IV antibiotics and antifungals being arranged per infectious disease recommendations and patient will have continued home care along with IV therapy in the outpatient setting. Patient will follow-up closely with the wound center along with surgery in the outpatient setting. Blood sugars have been on the lower side and instructed the patient to continue monitoring Accu-Cheks before meals and at bedtime and continue sliding scale as patient has not required long-acting insulin since hospitalization. Instructed the patient to hold the long-acting until follow-up with primary care provider and once the diet is advanced and sugars are on the upward trend. Scripts and sent to the pharmacy for sliding scale. Wound cultures preliminary showing yeast species. Patient is tolerating the diet with no nausea or vomiting noted. Encouraged increased activity as tolerated and continued incentive spirometer use Will continue to follow along with surgery during hospitalization. Thank you for this consultation. Patient states he is being discharged today. Objective - Vital Signs Vital signs: Vital Signs Temp 97.8 F 01/27/21 07:43 Pulse 55 L 01/27/21 07:43 Resp 16 01/27/21 07:43 BP 171/87 01/27/21 07:43 Pulse Ox 96 01/27/21 07:43 Intake & Output 01/26/21 01/27/21 01/27/21 18:59 06:59 18:59 Intake Total 180 Output Total 0 0 0 Balance 180 0 0 Weight 139.7 kg Intake: Oral 180 Output: Drainage 0 0 0 Anterior Abdomen 0 0 0 Other: Voiding Method Toilet # Voids 2 2 - Labs CBC & Chem 7: 01/27/21 09:00 01/25/21 06:36 Labs: Abnormal Lab Results - Last 24 Hours (Table) 01/26/21 01/26/21 01/26/21 Range/Units 12:34 17:41 20:43 POC Glucose (mg/dL) 177 H 182 H 160 H (75-99) mg/dL 01/27/21 Range/Units 07:40 POC Glucose (mg/dL) 169 H (75-99) mg/dL Microbiology - Last 24 Hours (Table) 01/24/21 10:00 Gram Stain - Preliminary Abdomen Wound Culture - Preliminary Yeast species
== END 2021-01-27 12:58 | disposition home health service (06) | DRG 326 ==
LOC: EC 21:08 → 6NMEDSUR 01-07 00:31 → OBSVTOIN 01-07 11:46
PROVIDERS: ADMIT Surgery; ATTEND Surgery
PROC: 0WPF4JZ Removal of Synthetic Substitute from Abdominal Wall, Percutaneous Endoscopic Approach (ICD-10-PCS; 2021-01-07)
PROC: 0DJ08ZZ Inspection of Upper Intestinal Tract, Via Natural or Artificial Opening Endoscopic (ICD-10-PCS; 2021-01-12)
PROC: 0DQ60ZZ Repair Stomach, Open Approach (ICD-10-PCS; 2021-01-14)
PROC: 0DP60CZ Removal of Extraluminal Device from Stomach, Open Approach (ICD-10-PCS; principal; 2021-01-14 14:30)
PROC: 0DJ60ZZ Inspection of Stomach, Open Approach (ICD-10-PCS; 2021-01-14 14:30)
DX: K95.01 Infection due to gastric band procedure (principal); A41.9 Sepsis, unspecified organism; B37.89 Other sites of candidiasis; I50.32 Chronic diastolic (congestive) heart failure; T81.41XA Infection following a procedure, superficial incisional surgical site, initial encounter; L03.311 Cellulitis of abdominal wall; E44.1 Mild protein-calorie malnutrition; I48.20 Chronic atrial fibrillation, unspecified; E87.0 Hyperosmolality and hypernatremia; E87.1 Hypo-osmolality and hyponatremia; Z68.41 Body mass index [BMI] 40.0-44.9, adult; Z20.822 Contact with and (suspected) exposure to COVID-19; E11.9 Type 2 diabetes mellitus without complications; Z79.01 Long term (current) use of anticoagulants; Z79.4 Long term (current) use of insulin; Z79.82 Long term (current) use of aspirin; Z79.899 Other long term (current) drug therapy; Z95.5 Presence of coronary angioplasty implant and graft; Z95.1 Presence of aortocoronary bypass graft; Z87.11 Personal history of peptic ulcer disease; E66.01 Morbid (severe) obesity due to excess calories; I11.0 Hypertensive heart disease with heart failure; E87.6 Hypokalemia; I25.10 Atherosclerotic heart disease of native coronary artery without angina pectoris; I25.2 Old myocardial infarction; I48.0 Paroxysmal atrial fibrillation; E87.5 Hyperkalemia; K25.9 Gastric ulcer, unspecified as acute or chronic, without hemorrhage or perforation; Y83.1 Surgical operation with implant of artificial internal device as the cause of abnormal reaction of the patient, or of later complication, without mention of misadventure at the time of the procedure; Z98.84 Bariatric surgery status; R33.9 Retention of urine, unspecified
CPT/HCPCS: 36415; 43235; 71045; 71046; 74018; 74176; 80048; 80053; 80202; 81001; 82150; 83605; 83690; 83880; 84145; 84484; 85025; 86140; 87040; 87070; 87075; 87086; 87102; 87205; 87635; 93306

== ENCOUNTER → 2021-02-02 | Outpatient (CLI) | payer BC ==
[2021-02-02 15:07] VITALS: BP 180/78; PULSE 85; RESP 16; TEMP 98.3; BMI 42.1
--- NOTE | 2021-02-12 20:02 | P.HPBAR ---
Bariatric H&P - History & Physicial H&P Date: 02/02/21 History & Physicial: Visit/CC: surg f/u Patient initial contact: Initial weight: 205.931 kg Initial weight in pounds: 454.00 Height: 5 ft 10.5 in Initial BMI: 64.2 Last weight: Current weight: 135.171 kg Current weight in pounds: 298.00 Current BMI: 42.1 [place] body weight (based on NIH guidelines): 76.657 kg Excess body weight loss: 54.7% The patient is a 55 year-old M who presents for Bariatric Assessment. Patient presents today for postoperative follow-up. He had his LAP-BAND system removal last week. Past Medical History Past Medical History: Atrial Fibrillation, Chest Pain / Angina, Diabetes Mellitus, Hypertension, Myocardial Infarction ([place]) Additional Past Medical History / Comment(s): Loop recorder Last Myocardial Infarction Date:: 2003 History of Any Multi-Drug Resistant Organisms: None Reported Past Surgical History: Ablation, Coronary Bypass/CABG, Heart Catheterization, Heart Catheterization With Stent Additional Past Surgical History / Comment(s): Lap band Past Anesthesia/Blood Transfusion Reactions: No Reported Reaction Date of Last Stent Placement:: 1989 Past Psychological History: No Psychological Hx Reported Smoking Status: Never smoker Past Alcohol Use History: None Reported Past Drug Use History: None Reported Surgical - Exam Vital Signs Temp Pulse Resp BP 98.3 F 85 16 180/78 02/02/21 14:45 02/02/21 14:45 02/02/21 14:45 02/02/21 14:45 - General well developed, well nourished, no distress - Eyes PERRL - ENT normal pinna - Neck no masses - Respiratory normal expansion - Cardiovascular Rhythm: regular - Abdomen There is some erythema of her wound. Abdomen: soft, non tender Bariatric Assessment & Plan Plan: Patient has some erythema around his wound. His yaquelin removed. He'll continue his IV antibiotics. He will follow-up with Dr. Rebekah calle this week. I will see him again next week. Bariatric Checklist Checklist: Plan: Checklist: EGD: 1. Hiatal hernia: 2. H. Pylori: HgbA1c: Vitamin D: Smoking: Primary care physician referral: Psychiatry clearance: Cardiology clearance: Sleep study: Diet journal: VTE risk score: VTE risk level: Rehab needs at discharge:
== END ==
LOC: BARWHC3 14:05
PROVIDERS: ATTEND Surgery
DX: Z48.815 Encounter for surgical aftercare following surgery on the digestive system (principal); I48.91 Unspecified atrial fibrillation; E11.9 Type 2 diabetes mellitus without complications; I10 Essential (primary) hypertension; I25.2 Old myocardial infarction; Z79.4 Long term (current) use of insulin; Z79.82 Long term (current) use of aspirin; Z79.899 Other long term (current) drug therapy
CPT/HCPCS: 99211

== ENCOUNTER → 2021-02-16 | Outpatient (CLI) | payer BC ==
[2021-02-16 13:34] VITALS: BP 138/75; PULSE 56; RESP 18; TEMP 98.5; BMI 41.0
--- NOTE | 2021-02-17 12:53 | P.HPBAR ---
Bariatric H&P - History & Physicial H&P Date: 02/17/21 History & Physicial: Visit/CC: follow up Patient initial contact: Initial weight: 205.931 kg Initial weight in pounds: 454.00 Height: 5 ft 10.5 in Initial BMI: 64.2 Last weight: Current weight: 131.542 kg Current weight in pounds: 290.00 Current BMI: 41.0 [place] body weight (based on NIH guidelines): 76.657 kg Excess body weight loss: 57.5% The patient is a 55 year-old M who presents for Bariatric Assessment. Patient presents today for follow-up. He underwent open removal of LAP-BAND. The patient has a small abdominal wound along his incision which is healing. He is continuing to have local wound care. Past Medical History Past Medical History: Atrial Fibrillation, Chest Pain / Angina, Diabetes Mellitus, Hypertension, Myocardial Infarction ([place]) Additional Past Medical History / Comment(s): Loop recorder Last Myocardial Infarction Date:: 2003 History of Any Multi-Drug Resistant Organisms: None Reported Past Surgical History: Ablation, Coronary Bypass/CABG, Heart Catheterization, Heart Catheterization With Stent Additional Past Surgical History / Comment(s): Lap band Past Anesthesia/Blood Transfusion Reactions: No Reported Reaction Date of Last Stent Placement:: 1989 Past Psychological History: No Psychological Hx Reported Smoking Status: Never smoker Past Alcohol Use History: None Reported Past Drug Use History: None Reported Surgical - Exam Vital Signs Temp Pulse Resp BP 98.5 F 56 L 18 138/75 02/16/21 13:27 02/16/21 13:27 02/16/21 13:27 02/16/21 13:27 - General well developed, well nourished, no distress - Eyes PERRL - ENT normal pinna - Neck no masses - Respiratory normal expansion - Cardiovascular Rhythm: regular - Abdomen Wound healing. There is some wet to dry alma in 3 spots along his incision Abdomen: soft, non tender Bariatric Assessment & Plan Plan: Status post removal of LAP-BAND. Patient has a wound which is healing. He'll continue local wound care. He'll follow-up in 2 weeks. Bariatric Checklist Checklist: Plan: Checklist: EGD: 1. Hiatal hernia: 2. H. Pylori: HgbA1c: Vitamin D: Smoking: Primary care physician referral: Dr. Indu Alvarez ([facility]) Psychiatry clearance: Cardiology clearance: Sleep study: Diet journal: VTE risk score: VTE risk level: Rehab needs at discharge:
== END ==
LOC: BARWHC3 12:47
PROVIDERS: ATTEND Surgery
DX: Z09 Encounter for follow-up examination after completed treatment for conditions other than malignant neoplasm (principal); I48.91 Unspecified atrial fibrillation; E11.9 Type 2 diabetes mellitus without complications; I11.9 Hypertensive heart disease without heart failure; I25.2 Old myocardial infarction; Z98.84 Bariatric surgery status; Z79.4 Long term (current) use of insulin; Z79.82 Long term (current) use of aspirin; Z79.899 Other long term (current) drug therapy
CPT/HCPCS: 99211

== ENCOUNTER → 2021-03-02 | Outpatient (CLI) | payer BC ==
[2021-03-02 13:34] VITALS: BP 157/91; PULSE 90; RESP 18; TEMP 98.3; BMI 40.1
== END ==
LOC: BARWHC3 13:04
PROVIDERS: ATTEND Surgery
DX: E66.01 Morbid (severe) obesity due to excess calories (principal); Z68.41 Body mass index [BMI] 40.0-44.9, adult; Z98.84 Bariatric surgery status
CPT/HCPCS: 99211